=== PATIENT | female | born 1955 | race Caucasian/White ===

== ENCOUNTER 2018-03-31 07:00 | Emergency (ER) | payer BC, MEDICARE ==
[2018-03-31] MEDS ORDERED: Sodium Chloride 0.9% 10 ML Syringe FLUSH PRN (07:02)
[2018-03-31] MEDS ORDERED: Nitroglycerin 0.4 MG Tab.SL SL PRN (07:02)
[2018-03-31] MEDS ORDERED: Sodium Chloride 0.9% 2.5 ML Syringe FLUSH PRN (07:02)
--- NOTE | 2018-03-31 07:06 | EDM.PDOC ---
ED HPI GENERAL MEDICAL PROBLEM - General Stated Complaint: CHEST PAIN Time Seen by Provider: 03/31/18 07:00 Source of Information: Reports: Patient History Limitations: Reports: No Limitations - History of Present Illness INITIAL COMMENTS - FREE TEXT/NARRATIVE: History of present illness: []Patient awoke with left arm pain and 6/10 substernal chest pain this morning at 5 AM. Balance was called and she was given 4 baby aspirin that she states decreased her pain to 4/10 in route she was given 1 nitroglycerin that decreased her pain to 2/10. Her pain is described as worsening with movement of her upper extremities not related to breathing. She denies any fevers, chills, nausea, vomiting or recent illness. She does have a chronic smoker's cough that she feels maybe a little worse. Review of systems: As per history of present illness and below otherwise all systems reviewed and negative. Past medical history: As per history of present illness and as reviewed below otherwise noncontributory. Surgical history: As per history of present illness and as reviewed below otherwise noncontributory. Social history: No reported history of drug or alcohol abuse. Family history: As per history of present illness and as reviewed below otherwise noncontributory. Physical exam: General: Well developed, well nourished in NAD HEENT: Atraumatic, normocephalic, pupils reactive, negative for conjunctival pallor or scleral icterus, mucous membranes moist, throat clear, neck supple, nontender, trachea midline. Lungs: Clear to auscultation, breath sounds equal bilaterally, chest nontender. Heart: S1S2, regular, negative for clicks, rubs, or JVD. Abdomen: NABS, Soft, nondistended, nontender. Negative for masses or hepatosplenomegaly. Negative for costovertebral tenderness. Pelvis: Stable nontender. Genitourinary: Deferred. Rectal: Deferred. Extremities: Atraumatic, negative for cords or calf pain. Neurovascular unremarkable. Neuro: Awake, alert, oriented. Cranial nerves II through XII unremarkable. Cerebellum unremarkable. Motor and sensory unremarkable throughout. Exam nonfocal. Skin:warm and dry Diagnostics: EKG, CBC, chemistry, d-dimer, troponin 2 chest x-ray, angiogram of chest Therapeutics: Toradol, IV fluid ED Course: Improved Impression: Chest pain, left shoulder pain with movement Prescriptions: None, patient is starting prednisone today prescribed for arthritis by [facility] care doctor. Plan: Follow-up primary care, start prednisone as directed return if symptoms worsen or change. Definitive disposition and diagnosis as appropriate pending reevaluation and review of above. Left Shoulder Pain Score (Numeric/FACES): 0 - Related Data Allergies Allergy/AdvReac Type Severity Reaction Status Date / Time Sulfa (Sulfonamide Allergy paresthesia Verified 03/31/18 07:35 Antibiotics) Home Meds: Home Meds ClonazePAM [KlonoPIN] 1 tab PO BEDTIME PRN 09/10/15 [History] Omeprazole 40 mg PO BID 09/10/15 [History] Propranolol HCl [Inderal LA] 160 mg PO DAILY 09/10/15 [History] Triamterene/Hydrochlorothiazid [Triamterene-HCTZ 37.5-25 MG] 1 tab PO DAILY [History] Tiotropium Br/Olodaterol HCl [Stiolto Respimat Inhal [place]] 1 puff INH DAILY [History] Past Medical History HEENT History: Reports: Allergic Rhinitis Cardiovascular History: Reports: Hypertension Other Cardiovascular History: hx of irreg ht rate treated with inderal Respiratory History: Reports: None Gastrointestinal History: Reports: GERD [employer] History: Reports: Musculoskeletal History: Reports: Other (See Below) Other Musculoskeletal History: cervical dystonia Other Neuro History: gets botox for torticollis every 3 months, also s/p surgical denervation of cervical musculature for torticollis. tremors x 25 years, idiopathic, Psychiatric History: Reports: Anxiety Endocrine/Metabolic History: Reports: None Hematologic History: Reports: None Immunologic History: Reports: None Oncologic (Cancer) History: Reports: None Dermatologic History: Reports: None - Past Surgical History Female Surgical History: Reports: Section, Dilitation & Evacuation ED ROS GENERAL - Review of Systems Review Of Systems: ROS reveals no pertinent complaints other than HPI. ED EXAM, GENERAL - Physical Exam Exam: See Below (See history of present illness) Course - Vital Signs Last Recorded V/S: Last Vital Signs Temp 97.8 F 03/31/18 07:00 Pulse 93 03/31/18 10:26 Resp 20 03/31/18 10:26 BP 125/77 03/31/18 10:26 Pulse Ox 96 03/31/18 10:26 - Orders/Labs/Meds Orders: Active Orders 24 hr Category Date Time Status Cardiac Monitoring [RC] . DIRECTED Care 03/31/18 07:01 Active EKG Documentation Completion [RC] STAT Care 03/31/18 07:01 Active CULTURE BLOOD [BC] Stat Lab 03/31/18 07:47 Received CULTURE BLOOD [BC] Stat Lab 03/31/18 07:55 Received Nitroglycerin [Nitrostat] Med 03/31/18 07:02 Active 0.4 mg SL Q5M PRN Sodium Chloride 0.9% [Saline Flush] Med 03/31/18 07:02 Active 10 ml FLUSH ASDIRECTED PRN Sodium Chloride 0.9% [Saline Flush] Med 03/31/18 07:02 Active 2.5 ml FLUSH ASDIRECTED PRN Blood Culture x2 Reflex Set [OM.PC] Stat Oth 03/31/18 07:31 Ordered Saline Lock Insert [OM.PC] Stat Oth 03/31/18 07:01 Ordered Medication Orders Nitroglycerin (Nitrostat) 0.4 mg SL Q5M PRN PRN Reason: Chest Pain Last Admin: 03/31/18 07:33 Dose: 0.4 mg Sodium Chloride (Saline Flush) 10 ml FLUSH ASDIRECTED PRN PRN Reason: Keep Vein Open Last Admin: 03/31/18 09:26 Dose: 10 ml Sodium Chloride (Saline Flush) 2.5 ml FLUSH ASDIRECTED PRN PRN Reason: Keep Vein Open Last Admin: 03/31/18 09:26 Dose: 2.5 ml Labs: Laboratory Tests 03/31/18 03/31/18 03/31/18 Range/Units 07:15 07:15 07:15 WBC 16.21 H (4.0-11.0) K/uL RBC 4.16 L (4.30-5.90) M/uL Hgb 13.2 (12.0-16.0) g/dL Hct 37.4 (36.0-46.0) % MCV 89.9 (80.0-98.0) fL MCH 31.7 (27.0-32.0) pg MCHC 35.3 (31.0-37.0) g/dL RDW Std Deviation 39.5 (28.0-62.0) fl RDW Coeff of Lisa 12 (11.0-15.0) % Plt Count 285 (150-400) K/uL MPV 9.40 (7.40-12.00) fL Neut % (Auto) 76.4 (48.0-80.0) % Lymph % (Auto) 13.3 L (16.0-40.0) % [place] % (Auto) 7.3 (0.0-15.0) % Eos % (Auto) 2.7 (0.0-7.0) % Baso % (Auto) 0.3 (0.0-1.5) % Neut # (Auto) 12.4 H (1.4-5.7) K/uL Lymph # (Auto) 2.2 (0.6-2.4) K/uL [place] # (Auto) 1.2 H (0.0-0.8) K/uL Eos # (Auto) 0.4 (0.0-0.7) K/uL Baso # (Auto) 0.1 (0.0-0.1) K/uL Nucleated RBC % 0.0 /100WBC Nucleated RBCs # 0 K/uL D-Dimer, Quantitative 1.69 H (0.0-0.50) mg/L FEU Lactate (0.20-2.00) mmol/L Sodium 129 L (136-145) mmol/L Potassium 3.6 (3.5-5.1) mmol/L Chloride 93 L (98-107) mmol/L Carbon Dioxide 26.4 (21.0-32.0) mmol/L BUN 20 H (7.0-18.0) mg/dL Creatinine 0.9 (0.6-1.0) mg/dL Est Cr Clr Drug Dosing 53.61 mL/min Estimated GFR (MDRD) > 60.0 ml/min Glucose 106 (74-106) mg/dL Calcium 9.1 (8.5-10.1) mg/dL Total Bilirubin 0.5 (0.2-1.0) mg/dL AST 17 (15-37) IU/L ALT 11 L (14-63) IU/L Alkaline Phosphatase 81 (46-116) U/L Troponin I < 0.050 (0.000-0.056) ng/mL Total Protein 6.9 (6.4-8.2) g/dL Albumin 3.2 L (3.4-5.0) g/dL Globulin 3.7 (2.6-4.0) g/dL Albumin/Globulin Ratio 0.9 (0.9-1.6) Urine Color Urine Appearance Urine pH (5.0-8.0) Ur Specific [place] (1.001-1.035) Urine Protein (NEGATIVE) mg/dL Urine Glucose (UA) (NEGATIVE) mg/dL Urine Ketones (NEGATIVE) mg/dL Urine Occult Blood (NEGATIVE) Urine Nitrite (NEGATIVE) Urine Bilirubin (NEGATIVE) Urine Urobilinogen (<2.0) EU/dL Ur Leukocyte Esterase (NEGATIVE) Urine RBC (0-2/HPF) Urine WBC (0-5/HPF) Ur Epithelial Cells (NONE-FEW) Urine Bacteria (NEGATIVE) Urine Mucus (NONE-MOD) 03/31/18 03/31/18 03/31/18 Range/Units 07:29 07:44 10:11 WBC (4.0-11.0) K/uL RBC (4.30-5.90) M/uL Hgb (12.0-16.0) g/dL Hct (36.0-46.0) % MCV (80.0-98.0) fL MCH (27.0-32.0) pg MCHC (31.0-37.0) g/dL RDW Std Deviation (28.0-62.0) fl RDW Coeff of Lisa (11.0-15.0) % Plt Count (150-400) K/uL MPV (7.40-12.00) fL Neut % (Auto) (48.0-80.0) % Lymph % (Auto) (16.0-40.0) % [place] % (Auto) (0.0-15.0) % Eos % (Auto) (0.0-7.0) % Baso % (Auto) (0.0-1.5) % Neut # (Auto) (1.4-5.7) K/uL Lymph # (Auto) (0.6-2.4) K/uL [place] # (Auto) (0.0-0.8) K/uL Eos # (Auto) (0.0-0.7) K/uL Baso # (Auto) (0.0-0.1) K/uL Nucleated RBC % /100WBC Nucleated RBCs # K/uL D-Dimer, Quantitative (0.0-0.50) mg/L FEU Lactate 0.6 (0.20-2.00) mmol/L Sodium (136-145) mmol/L Potassium (3.5-5.1) mmol/L Chloride (98-107) mmol/L Carbon Dioxide (21.0-32.0) mmol/L BUN (7.0-18.0) mg/dL Creatinine (0.6-1.0) mg/dL Est Cr Clr Drug Dosing mL/min Estimated GFR (MDRD) ml/min Glucose (74-106) mg/dL Calcium (8.5-10.1) mg/dL Total Bilirubin (0.2-1.0) mg/dL AST (15-37) IU/L ALT (14-63) IU/L Alkaline Phosphatase (46-116) U/L Troponin I < 0.050 (0.000-0.056) ng/mL Total Protein (6.4-8.2) g/dL Albumin (3.4-5.0) g/dL Globulin (2.6-4.0) g/dL Albumin/Globulin Ratio (0.9-1.6) Urine Color YELLOW Urine Appearance CLEAR Urine pH 5.5 (5.0-8.0) Ur Specific [place] 1.010 (1.001-1.035) Urine Protein NEGATIVE (NEGATIVE) mg/dL Urine Glucose (UA) NEGATIVE (NEGATIVE) mg/dL Urine Ketones NEGATIVE (NEGATIVE) mg/dL Urine Occult Blood NEGATIVE (NEGATIVE) Urine Nitrite NEGATIVE (NEGATIVE) Urine Bilirubin NEGATIVE (NEGATIVE) Urine Urobilinogen 0.2 (<2.0) EU/dL Ur Leukocyte Esterase TRACE H (NEGATIVE) Urine RBC NONE SEEN (0-2/HPF) Urine WBC 0-2 (0-5/HPF) Ur Epithelial Cells FEW (NONE-FEW) Urine Bacteria FEW (NEGATIVE) Urine Mucus LIGHT (NONE-MOD) Meds: Medications Generic Name Dose Route Start Last Admin Trade Name Freq PRN Reason Stop Dose Admin Nitroglycerin 0.4 mg 03/31/18 07:02 03/31/18 07:33 Nitrostat SL 0.4 mg Q5M PRN Administration Chest Pain Sodium Chloride 10 ml 03/31/18 07:02 03/31/18 09:26 Saline Flush FLUSH 10 ml ASDIRECTED PRN Administration Keep Vein Open Sodium Chloride 2.5 ml 03/31/18 07:02 03/31/18 09:26 Saline Flush FLUSH 2.5 ml ASDIRECTED PRN Administration Keep Vein Open Discontinued Medications Generic Name Dose Route Start Last Admin Trade Name Freq PRN Reason Stop Dose Admin Iopamidol 50 ml 03/31/18 12:01 03/31/18 12:02 Isovue Multipack-370 (76%) IVPUSH 03/31/18 12:02 50 ml ONETIME ONE Administration Ketorolac Tromethamine 15 mg 03/31/18 10:03 03/31/18 10:33 Toradol IVPUSH 03/31/18 10:04 15 mg ONETIME ONE Administration Lorazepam 0.5 mg 03/31/18 10:36 03/31/18 10:43 Ativan IVPUSH 03/31/18 10:37 Not Given ONETIME ONE Lorazepam 0.25 mg 03/31/18 10:36 03/31/18 10:43 Ativan IVPUSH 03/31/18 10:37 0.25 mg ONETIME ONE Administration Departure - Departure Time of Disposition: 12:14 Disposition: Home, Self-Care 01 Condition: Good Clinical Impression: Left shoulder pain Qualifiers: Chronicity: acute Qualified Code(s): M25.512 - Pain in left shoulder Chest pain Qualifiers: Chest pain type: unspecified Qualified Code(s): R07.9 - Chest pain, unspecified Instructions: Shoulder Pain, [id number], Nonspecific Chest Pain, [id number] Referrals: Joe Osborne MD [Primary Care Provider] - Forms: ED Department Discharge Additional Instructions: The following information is given to patients seen in the emergency department who are being discharged to home. This information is to outline your options for follow-up care. We provide all patients seen in our emergency department with a follow-up referral. The need for follow-up, as well as the timing and circumstances, are variable depending upon the specifics of your emergency department visit. If you don't have a primary care physician on staff, we will provide you with a referral. We always advise you to contact your personal physician following an emergency department visit to inform them of the circumstance of the visit and for follow-up with them and/or the need for any referrals to a consulting specialist. The emergency department will also refer you to a specialist when appropriate. This referral assures that you have the opportunity for follow-up care with a specialist. All of these measure are taken in an effort to provide you with optimal care, which includes your follow-up. Under all circumstances we always encourage you to contact your private physician who remains a resource for coordinating your care. When calling for follow-up care, please make the office aware that this follow-up is from your recent emergency room visit. If for any reason you are refused follow-up, please contact the [facility] Emergency [facility] at and asked to speak to the emergency department charge nurse. [facility] [address] [place] [phone] - My Orders Last 24 Hours: My Active Orders 03/31/18 07:01 Cardiac Monitoring [RC] . DIRECTED EKG Documentation Completion [RC] STAT Saline Lock Insert [OM.PC] Stat 03/31/18 07:02 Nitroglycerin [Nitrostat] 0.4 mg SL Q5M PRN Sodium Chloride 0.9% [Saline Flush] 10 ml FLUSH ASDIRECTED PRN Sodium Chloride 0.9% [Saline Flush] 2.5 ml FLUSH ASDIRECTED PRN 03/31/18 07:31 Blood Culture x2 Reflex Set [OM.PC] Stat 03/31/18 07:47 CULTURE BLOOD [BC] Stat 03/31/18 07:55 CULTURE BLOOD [BC] Stat - Assessment/Plan Last 24 Hours: My Active Orders 03/31/18 07:01 Cardiac Monitoring [RC] . DIRECTED EKG Documentation Completion [RC] STAT Saline Lock Insert [OM.PC] Stat 03/31/18 07:02 Nitroglycerin [Nitrostat] 0.4 mg SL Q5M PRN Sodium Chloride 0.9% [Saline Flush] 10 ml FLUSH ASDIRECTED PRN Sodium Chloride 0.9% [Saline Flush] 2.5 ml FLUSH ASDIRECTED PRN 03/31/18 07:31 Blood Culture x2 Reflex Set [OM.PC] Stat 03/31/18 07:47 CULTURE BLOOD [BC] Stat 03/31/18 07:55 CULTURE BLOOD [BC] Stat
[2018-03-31 07:58] LABS: CHLORIDE,CL 93 mmol/L (98-107); SODIUM,NA 129 mmol/L (136-145)
--- NOTE | 2018-03-31 09:25 | CR ---
INDICATION : Pain and SOB. TECHNIQUE : Upright portable AP image of the chest. COMPARISON : None. FINDINGS : Patient rotated. No infiltrate or pleural effusion. Heart size and pulmonary vasculature within normal limits. No significant bony abnormality. IMPRESSION : Patient rotated. No active disease evident. Dictated by Ivan Argueta MD @ Mar 31 2018 9:20AM Signed by Dr. Ivan Argueta @ Mar 31 2018 9:23AM
[2018-03-31] MEDS ORDERED: Ketorolac 30 MG/ML SDV IVPUSH ONE (10:03)
[2018-03-31] MEDS ORDERED: LORazepam 2 MG/ML SDV IVPUSH ONE ×2 (10:36)
[2018-03-31] MEDS ORDERED: Iopamidol 755 MG/ML 500 ML Multipack Bottle IVPUSH ONE (12:01)
--- NOTE | 2018-03-31 12:09 | CT ---
EXAMINATION: CTA chest HISTORY: Pain COMPARISON: None TECHNIQUE: Axial CT imaging obtained through the chest following the administration of 50 mL of Isovue-370 in the left antecubital fossa. Coronal and sagittal reconstructions obtained. FINDINGS: The lungs are clear without focal consolidation. No pleural effusion or pneumothorax. Mild dependent atelectasis. There are a few small sub-4 mm pulmonary nodules noted bilaterally. The thoracic aorta is mildly ectatic measuring up to 4.3 cm within the ascending aorta and 3.5 cm within the descending aorta. The main and central pulmonary arteries are patent. Mild left atrial prominence. Coronary artery calcifications are noted. Central airways are clear. No mediastinal, hilar, or axillary lymphadenopathy. There is likely a left adrenal adenoma. No suspicious osseous abnormalities identified. IMPRESSION: 1. No acute cardiopulmonary findings. 2. There are several small pulmonary nodules noted bilaterally, left the patient has known risk factors consider follow-up imaging in 12 months. 3. Mild ectasia of the thoracic aorta.
[2018-03-31 12:21] VITALS: BP 141/72
== END 2018-03-31 12:23 | disposition home or self-care (01) ==
LOC: MW.ED 07:00
DX: M25.512 Pain in left shoulder (principal); R07.2 Precordial pain; K21.9 Gastro-esophageal reflux disease without esophagitis; I10 Essential (primary) hypertension; Z88.2 Allergy status to sulfonamides; Z79.899 Other long term (current) drug therapy
CPT/HCPCS: 36415; 71045; 71275; 80053; 81001; 83605; 84484; 85025; 85379; 87040; 87804; 93005; 96374; 96375; 99285; A9270; J1885; J2060; Q9967; 99284

== ENCOUNTER 2018-05-07 11:36 | Inpatient (IN) | payer BC, MEDICARE ==
[2018-05-07] MEDS ORDERED: Adenosine 6 MG/2 ML SDV ONE (11:42)
--- NOTE | 2018-05-07 11:47 | EDM.PDOC ---
ED HPI GENERAL MEDICAL PROBLEM - General Chief Complaint: Cardiovascular Problem Stated Complaint: SOB Time Seen by Provider: 05/07/18 11:45 - History of Present Illness INITIAL COMMENTS - FREE TEXT/NARRATIVE: HISTORY AND PHYSICAL: History of present illness: Patient 62-year-old white female history of spasmodic torticollis and rheumatoid arthritis that presents with concern shortness of breath and rapid heart rate over last 4 days she is sent here from clinic. She denies chest pain nausea vomiting fever chills Review of systems: As per history of present illness and below otherwise all systems reviewed and negative. Past medical history: As per history of present illness and as reviewed below otherwise noncontributory. Surgical history: As per history of present illness and as reviewed below otherwise noncontributory. Social history: No reported history of drug or alcohol abuse. Family history: As per history of present illness and as reviewed below otherwise noncontributory. Physical exam: HEENT: Atraumatic, normocephalic, pupils reactive, negative for conjunctival pallor or scleral icterus, mucous membranes moist, throat clear, neck supple, nontender, trachea midline. Lungs: Clear to auscultation, breath sounds equal bilaterally, chest nontender. Heart: S1S2, irregularly irregular and tachycardic negative for clicks, rubs, or JVD. Abdomen: Soft, nondistended, nontender. Negative for masses or hepatosplenomegaly. Negative for costovertebral tenderness. Pelvis: Stable nontender. Genitourinary: Deferred. Rectal: Deferred. Extremities: Atraumatic, negative for cords or calf pain. Neurovascular unremarkable. Neuro: Awake, alert, oriented. Cranial nerves II through XII unremarkable. Cerebellum unremarkable. Motor and sensory unremarkable throughout. Exam nonfocal. Diagnostics: CBC CMP troponin PT/INR BNP chest x-ray EKG Therapeutics: IV O2 monitor Cardizem 25 mg IV Lovenox 1 mg/kg subcutaneous Impression: #1 new onset atrial fibrillation with rapid ventricular response Definitive disposition and diagnosis as appropriate pending reevaluation and review of above. - Related Data Allergies Allergy/AdvReac Type Severity Reaction Status Date / Time Sulfa (Sulfonamide Allergy paresthesia Verified 05/07/18 11:48 Antibiotics) Home Meds: Home Meds ClonazePAM [KlonoPIN] 1 tab PO BEDTIME PRN 09/10/15 [History] Omeprazole 40 mg PO BID 09/10/15 [History] Propranolol HCl [Inderal LA] 160 mg PO DAILY 09/10/15 [History] Triamterene/Hydrochlorothiazid [Triamterene-HCTZ 37.5-25 MG] 1 tab PO DAILY [History] Tiotropium Br/Olodaterol HCl [Stiolto Respimat Inhal [place]] 1 puff INH DAILY [History] Past Medical History HEENT History: Reports: Allergic Rhinitis Cardiovascular History: Reports: Hypertension Other Cardiovascular History: hx of irreg ht rate treated with inderal Respiratory History: Reports: None Gastrointestinal History: Reports: GERD [employer] History: Reports: Musculoskeletal History: Reports: Other (See Below) Other Musculoskeletal History: cervical dystonia Other Neuro History: gets botox for torticollis every 3 months, also s/p surgical denervation of cervical musculature for torticollis. tremors x 25 years, idiopathic, Psychiatric History: Reports: Anxiety Endocrine/Metabolic History: Reports: None Hematologic History: Reports: None Immunologic History: Reports: None Oncologic (Cancer) History: Reports: None Dermatologic History: Reports: None - Past Surgical History Female Surgical History: Reports: Section, Dilitation & Evacuation ED ROS GENERAL - Review of Systems Review Of Systems: ROS reveals no pertinent complaints other than HPI. ED EXAM, GENERAL - Physical Exam Exam: See Below (See dictation) Course - Vital Signs Last Recorded V/S: Last Vital Signs Temp 36.4 C 05/07/18 11:43 Pulse 157 H 05/07/18 11:43 Resp 20 05/07/18 11:43 BP 141/98 H 05/07/18 11:43 Pulse Ox 98 05/07/18 11:43 - Orders/Labs/Meds Orders: Active Orders 24 hr Category Date Time Status Cardiac Monitoring [RC] . DIRECTED Care 05/07/18 11:49 Active EKG Documentation Completion [RC] STAT Care 05/07/18 11:49 Active Oxygen Therapy [RC] ASDIRECTED Care 05/07/18 11:49 Active Pulse Oximetry [RC] ASDIRECTED Care 05/07/18 11:49 Active B-TYPE NATRIURETIC PEPTIDE,BNP [CHEM] Stat Lab 05/07/18 11:51 Received Labs: Laboratory Tests 03/22/19 03/22/19 Range/Units 11:51 11:51 WBC 12.73 H (4.0-11.0) K/uL RBC 4.25 L (4.30-5.90) M/uL Hgb 13.8 (12.0-16.0) g/dL Hct 40.2 (36.0-46.0) % MCV 94.6 (80.0-98.0) fL MCH 32.5 H (27.0-32.0) pg MCHC 34.3 (31.0-37.0) g/dL RDW Std Deviation 51.4 (28.0-62.0) fl RDW Coeff of Lisa 15 (11.0-15.0) % Plt Count 229 (150-400) K/uL MPV 10.10 (7.40-12.00) fL Neut % (Auto) 60.9 (48.0-80.0) % Lymph % (Auto) 30.6 (16.0-40.0) % [place] % (Auto) 7.0 (0.0-15.0) % Eos % (Auto) 1.1 (0.0-7.0) % Baso % (Auto) 0.4 (0.0-1.5) % Neut # (Auto) 7.8 H (1.4-5.7) K/uL Lymph # (Auto) 3.9 H (0.6-2.4) K/uL [place] # (Auto) 0.9 H (0.0-0.8) K/uL Eos # (Auto) 0.1 (0.0-0.7) K/uL Baso # (Auto) 0.1 (0.0-0.1) K/uL Nucleated RBC % 0.0 /100WBC Nucleated RBCs # 0 K/uL Sodium 134 L (136-145) mmol/L Potassium 3.4 L (3.5-5.1) mmol/L Chloride 98 (98-107) mmol/L Carbon Dioxide 27.9 (21.0-32.0) mmol/L BUN 22 H (7.0-18.0) mg/dL Creatinine 1.3 H (0.6-1.0) mg/dL Est Cr Clr Drug Dosing 37.12 mL/min Estimated GFR (MDRD) 41.5 ml/min Glucose 123 H (74-106) mg/dL Calcium 8.8 (8.5-10.1) mg/dL Total Bilirubin 0.7 (0.2-1.0) mg/dL AST 26 (15-37) IU/L ALT 62 (14-63) IU/L Alkaline Phosphatase 59 (46-116) U/L Troponin I < 0.050 (0.000-0.056) ng/mL Total Protein 6.5 (6.4-8.2) g/dL Albumin 3.5 (3.4-5.0) g/dL Globulin 3.0 (2.6-4.0) g/dL Albumin/Globulin Ratio 1.2 (0.9-1.6) Meds: Medications Discontinued Medications Generic Name Dose Route Start Last Admin Trade Name Freq PRN Reason Stop Dose Admin Adenosine Confirm 05/07/18 11:42 05/07/18 11:56 Adenocard Administered 05/07/18 11:43 Not Given Dose 6 mg .ROUTE .STK-MED ONE Diltiazem HCl 25 mg 05/07/18 11:51 05/07/18 12:03 Diltiazem IVPUSH 05/07/18 11:52 25 mg ONETIME ONE Administration Enoxaparin Sodium 60 mg 05/07/18 11:51 05/07/18 12:07 Lovenox SUBCUT 05/07/18 11:52 60 mg ONETIME ONE Administration Departure - Departure Time of Disposition: 13:12 Disposition: Admitted As Inpatient 66 Condition: Good Clinical Impression: Atrial fibrillation with rapid ventricular response, Dyspnea Referrals: PCP,None [Primary Care Provider] - Forms: ED Department Discharge - My Orders Last 24 Hours: My Active Orders 05/07/18 11:49 Cardiac Monitoring [RC] . DIRECTED EKG Documentation Completion [RC] STAT Oxygen Therapy [RC] ASDIRECTED Pulse Oximetry [RC] ASDIRECTED 05/07/18 11:51 B-TYPE NATRIURETIC PEPTIDE,BNP [CHEM] Stat - Assessment/Plan Last 24 Hours: My Active Orders 05/07/18 11:49 Cardiac Monitoring [RC] . DIRECTED EKG Documentation Completion [RC] STAT Oxygen Therapy [RC] ASDIRECTED Pulse Oximetry [RC] ASDIRECTED 05/07/18 11:51 B-TYPE NATRIURETIC PEPTIDE,BNP [CHEM] Stat
[2018-05-07] MEDS ORDERED: Enoxaparin 60 MG/0.6 ML Syringe SUBCUT ONE (11:51)
[2018-05-07] MEDS ORDERED: Diltiazem 25 MG/5 ML SDV IVPUSH ONE (11:51)
[2018-05-07 12:50] LABS: CHLORIDE,CL 98 mmol/L (98-107); SODIUM,NA 134 mmol/L (136-145)
--- NOTE | 2018-05-07 13:09 | CR ---
EXAMINATION: Portable chest radiograph. HISTORY: Elevated heart rate. Comparison: CT 03/31/2018. FINDINGS: The trachea is essentially midline. The cardiomediastinal silhouette is within normal limits. No pulmonary infiltrates, effusions or pneumothorax. The aorta is ectatic and tortuous. Levocurvature thoracic spine. IMPRESSION: No acute cardiopulmonary process.
[2018-05-07] MEDS ORDERED: LORazepam 2 MG/ML SDV IVPUSH ONE (13:32)
--- NOTE | 2018-05-07 14:13 | PCM.HP ---
<Ariela Wylie M - Last Filed: 05/07/18 14:56> H&P History of Present Illness - General Date of Service: 05/07/18 Admit Problem/Dx: Admission Diagnosis/Problem Admission Diagnosis/Problem Atrial fibrillation with rapid ventricular response Source of Information: Patient History Limitations: Reports: No Limitations - History of Present Illness Initial Comments - Free Text/Narative: This 62 year old female with pmh of spastic torticollis, HTN, and idiopathic tremors presented initially to her PCP today for more prednisone due ot RA pain. She is scheduled to meet with [employer] in 2 weeks. She was noted to have elevated HR in the office and sent to the ED. EKG revealed afib with rates in the 140-150s. She reports 4-5 days of shortness of breath with exertion which is new and a dry cough. She denies fevers chills or productive cough. No abdominal pain or urinary symptoms. She has been on Prednisone taper for 2 months. She denies palpitations or chest pain. No focal neurologic deficits. She reports she once was on Atenolol for "irregular heart rhythm", not sure what and then was changed to propranolol because they thought it would help with her tremors, which she said it did not. She is a smoker, 1 ppd, she has considered quitting, but not very motivated at this time. Rare alcohol use and no recreational drug use. In the ED mild leukocytosis noted, 12,730. Na 134, K+ 3.3 BUN 22, Cr 1.3, glucose 123, BNP 495. CXR negative. EKG reveals Afib with RVR, rates 150s. She was given Diltiazem IV and therapeutic Lovenox subcutaneously. She will be admitted inpatient for afib RVR. PCP, Dr Paredes. - Related Data Allergies/Adverse Reactions: Allergies Allergy/AdvReac Type Severity Reaction Status Date / Time Sulfa (Sulfonamide Allergy paresthesia Verified 05/07/18 11:48 Antibiotics) Home Medications: Home Meds ClonazePAM [KlonoPIN] 1 tab PO BEDTIME PRN 09/10/15 [History] Omeprazole 40 mg PO DAILY 09/10/15 [History] Propranolol HCl [Inderal LA] 160 mg PO DAILY 09/10/15 [History] Triamterene/Hydrochlorothiazid [Triamterene-HCTZ 37.5-25 MG] 1 tab PO DAILY [History] Tiotropium Br/Olodaterol HCl [Stiolto Respimat Inhal [place]] 1 puff INH DAILY [History] Past Medical History HEENT History: Reports: Allergic Rhinitis Cardiovascular History: Reports: Arrhythmia, Hypertension. Denies: CAD, High Cholesterol Respiratory History: Reports: None. Denies: Asthma, COPD Gastrointestinal History: Reports: GERD [employer]OR History: Reports: Musculoskeletal History: Reports: Other (See Below) Other Musculoskeletal History: cervical dystonia Other Neuro History: gets botox for torticollis every 3 months, also s/p surgical denervation of cervical musculature for torticollis,. idiopathic tremors x 25 years Psychiatric History: Reports: Anxiety Endocrine/Metabolic History: Reports: None. Denies: Diabetes, Type II, Obesity/ BMI 30+ Hematologic History: Reports: None Immunologic History: Reports: None Oncologic (Cancer) History: Reports: None Dermatologic History: Reports: None - Past Surgical History Female Surgical History: Reports: Section, Dilitation & Evacuation Social & Family History - Tobacco Use Smoking Status *Q: Current Every Day Smoker Packs/Tins Daily: 1 - Alcohol Use Alcohol Use History: No Alcohol Use Frequency: Rarely - Recreational Drug Use Recreational Drug Use: No H&P Review of Systems - Review of Systems: Review Of Systems: See Below General: Reports: No Symptoms. Denies: Fever, Chills, Malaise, Weakness HEENT: Reports: No Symptoms. Denies: Headaches, Sinus Congestion, Vertigo Pulmonary: Reports: Shortness of Breath, Cough (dry hacking) Cardiovascular: Reports: Dyspnea on Exertion. Denies: Chest Pain, Edema, Lightheadedness Gastrointestinal: Reports: No Symptoms. Denies: Abdominal Pain, Black Stool, Bloody Stool, Nausea, Vomiting Genitourinary: Reports: No Symptoms. Denies: Dysuria, Frequency, Burning Musculoskeletal: Reports: No Symptoms. Denies: Neck Pain Neurological: Reports: Tremors (idopathic at baseline to neck) Hematologic/Lymphatic: Reports: No Symptoms Immunologic: Reports: No Symptoms Exam - Exam Exam: See Below - Vital Signs Vital Signs: Last Vital Signs Temp 97.6 F 05/07/18 11:43 Pulse 157 H 05/07/18 11:43 Resp 20 05/07/18 11:43 BP 141/98 H 05/07/18 11:43 Pulse Ox 98 05/07/18 11:43 Weight: 61.235 kg - Exam General: Alert, Oriented, Cooperative - Patient Data Lab Results Last 24 hrs: Laboratory Results - last 24 hr 05/07/18 05/07/18 05/07/18 Range/Units 11:51 11:51 11:51 WBC 12.73 H (4.0-11.0) K/uL RBC 4.25 L (4.30-5.90) M/uL Hgb 13.8 (12.0-16.0) g/dL Hct 40.2 (36.0-46.0) % MCV 94.6 (80.0-98.0) fL MCH 32.5 H (27.0-32.0) pg MCHC 34.3 (31.0-37.0) g/dL RDW Std Deviation 51.4 (28.0-62.0) fl RDW Coeff of Lisa 15 (11.0-15.0) % Plt Count 229 (150-400) K/uL MPV 10.10 (7.40-12.00) fL Neut % (Auto) 60.9 (48.0-80.0) % Lymph % (Auto) 30.6 (16.0-40.0) % Routt % (Auto) 7.0 (0.0-15.0) % Eos % (Auto) 1.1 (0.0-7.0) % Baso % (Auto) 0.4 (0.0-1.5) % Neut # (Auto) 7.8 H (1.4-5.7) K/uL Lymph # (Auto) 3.9 H (0.6-2.4) K/uL Routt # (Auto) 0.9 H (0.0-0.8) K/uL Eos # (Auto) 0.1 (0.0-0.7) K/uL Baso # (Auto) 0.1 (0.0-0.1) K/uL Nucleated RBC % 0.0 /100WBC Nucleated RBCs # 0 K/uL Sodium 134 L (136-145) mmol/L Potassium 3.4 L (3.5-5.1) mmol/L Chloride 98 (98-107) mmol/L Carbon Dioxide 27.9 (21.0-32.0) mmol/L BUN 22 H (7.0-18.0) mg/dL Creatinine 1.3 H (0.6-1.0) mg/dL Est Cr Clr Drug Dosing 37.12 mL/min Estimated GFR (MDRD) 41.5 ml/min Glucose 123 H (74-106) mg/dL Calcium 8.8 (8.5-10.1) mg/dL Magnesium (1.8-2.4) mg/dL Total Bilirubin 0.7 (0.2-1.0) mg/dL AST 26 (15-37) IU/L ALT 62 (14-63) IU/L Alkaline Phosphatase 59 (46-116) U/L Troponin I < 0.050 (0.000-0.056) ng/mL B-Natriuretic Peptide 495 H (<100) PG/ML Total Protein 6.5 (6.4-8.2) g/dL Albumin 3.5 (3.4-5.0) g/dL Globulin 3.0 (2.6-4.0) g/dL Albumin/Globulin Ratio 1.2 (0.9-1.6) 05/07/18 Range/Units 11:51 WBC (4.0-11.0) K/uL RBC (4.30-5.90) M/uL Hgb (12.0-16.0) g/dL Hct (36.0-46.0) % MCV (80.0-98.0) fL MCH (27.0-32.0) pg MCHC (31.0-37.0) g/dL RDW Std Deviation (28.0-62.0) fl RDW Coeff of Lisa (11.0-15.0) % Plt Count (150-400) K/uL MPV (7.40-12.00) fL Neut % (Auto) (48.0-80.0) % Lymph % (Auto) (16.0-40.0) % Routt % (Auto) (0.0-15.0) % Eos % (Auto) (0.0-7.0) % Baso % (Auto) (0.0-1.5) % Neut # (Auto) (1.4-5.7) K/uL Lymph # (Auto) (0.6-2.4) K/uL Routt # (Auto) (0.0-0.8) K/uL Eos # (Auto) (0.0-0.7) K/uL Baso # (Auto) (0.0-0.1) K/uL Nucleated RBC % /100WBC Nucleated RBCs # K/uL Sodium (136-145) mmol/L Potassium (3.5-5.1) mmol/L Chloride (98-107) mmol/L Carbon Dioxide (21.0-32.0) mmol/L BUN (7.0-18.0) mg/dL Creatinine (0.6-1.0) mg/dL Est Cr Clr Drug Dosing mL/min Estimated GFR (MDRD) ml/min Glucose (74-106) mg/dL Calcium (8.5-10.1) mg/dL Magnesium 2.0 (1.8-2.4) mg/dL Total Bilirubin (0.2-1.0) mg/dL AST (15-37) IU/L ALT (14-63) IU/L Alkaline Phosphatase (46-116) U/L Troponin I (0.000-0.056) ng/mL B-Natriuretic Peptide (<100) PG/ML Total Protein (6.4-8.2) g/dL Albumin (3.4-5.0) g/dL Globulin (2.6-4.0) g/dL Albumin/Globulin Ratio (0.9-1.6) Result Diagrams: 05/07/18 11:51 05/07/18 11:51 - Problem List (1) Atrial fibrillation with rapid ventricular response SNOMED Code(s): 482312727255803 ICD Code: I48.91 - UNSPECIFIED ATRIAL FIBRILLATION Status: Acute Current Visit: No (2) Spastic torticollis SNOMED Code(s): 97517599, 685136899085 ICD Code: M43.6 - TORTICOLLIS Status: Chronic Current Visit: No (3) Tremor SNOMED Code(s): 52682280 ICD Code: R25.1 - TREMOR, UNSPECIFIED Status: Chronic Current Visit: No (4) HTN (hypertension) SNOMED Code(s): 61493869 ICD Code: I10 - ESSENTIAL (PRIMARY) HYPERTENSION Status: Chronic Current Visit: No (5) Dyspnea SNOMED Code(s): 186313879 ICD Code: R06.00 - DYSPNEA, UNSPECIFIED Status: Acute Current Visit: No Problem List Initiated/Reviewed/Updated: Yes Orders Last 24hrs: Active Orders 24 hr Category Date Time Status Patient Status [ADT] Stat ADT 05/07/18 13:13 Active Cardiac Monitoring [RC] . DIRECTED Care 05/07/18 11:49 Active EKG Documentation Completion [RC] STAT Care 05/07/18 11:49 Active Oxygen Therapy [RC] ASDIRECTED Care 05/07/18 11:49 Active Pulse Oximetry [RC] ASDIRECTED Care 05/07/18 11:49 Active Assessment/Plan Comment:: This 62 year old female admitted with afib with RVR 1. Afib with RVR: RVR resolved. Will start Diltiazem 30 mg PO Q6 hrs, if rate controlled, convert to daily dosing in am. CHADSVASC score 1, will start ASA. Discussed this with patient for stroke prevention, she verbalized understanding. Supplement K+, 40 meq now. Recheck in am. Magnesium good at 2.0. Discontinue Propranolol. 2. HTN: Stable, monitor with Diltiazem administration. Continue home meds 3. Tremors: stable, continue Clonazepam TID PRN 4. RA: Hands swollen and tender, currently on Prednisone 10 mg until follow up with [employer] [facility] on May 28. On PPI, Prilosec BID. VTE prophylaxis: Lovenox. Dispo: 1-2 days pending rate control. <Nicolás Landon - Last Filed: 05/07/18 18:30> H&P History of Present Illness - General Admit Problem/Dx: Admission Diagnosis/Problem Admission Diagnosis/Problem Atrial fibrillation with rapid ventricular response - History of Present Illness Initial Comments - Free Text/Narative: I have seen and examined the patient independently of Ariela Wylie CNP. I have discussed the case with her. I have reviewed and agree with the assessment and plan of care for the patient as outlined by her. Please see orders. Exam - Vital Signs Vital Signs: Last Vital Signs Temp 36.2 C 05/07/18 15:10 Pulse 91 05/07/18 15:10 Resp 16 05/07/18 15:10 BP 130/70 05/07/18 15:10 Pulse Ox 98 05/07/18 15:10 - Patient Data Lab Results Last 24 hrs: Laboratory Results - last 24 hr 05/07/18 05/07/18 05/07/18 Range/Units 11:51 11:51 11:51 WBC 12.73 H (4.0-11.0) K/uL RBC 4.25 L (4.30-5.90) M/uL Hgb 13.8 (12.0-16.0) g/dL Hct 40.2 (36.0-46.0) % MCV 94.6 (80.0-98.0) fL MCH 32.5 H (27.0-32.0) pg MCHC 34.3 (31.0-37.0) g/dL RDW Std Deviation 51.4 (28.0-62.0) fl RDW Coeff of Lisa 15 (11.0-15.0) % Plt Count 229 (150-400) K/uL MPV 10.10 (7.40-12.00) fL Neut % (Auto) 60.9 (48.0-80.0) % Lymph % (Auto) 30.6 (16.0-40.0) % Routt % (Auto) 7.0 (0.0-15.0) % Eos % (Auto) 1.1 (0.0-7.0) % Baso % (Auto) 0.4 (0.0-1.5) % Neut # (Auto) 7.8 H (1.4-5.7) K/uL Lymph # (Auto) 3.9 H (0.6-2.4) K/uL [place]t # (Auto) 0.9 H (0.0-0.8) K/uL Eos # (Auto) 0.1 (0.0-0.7) K/uL Baso # (Auto) 0.1 (0.0-0.1) K/uL Nucleated RBC % 0.0 /100WBC Nucleated RBCs # 0 K/uL Sodium 134 L (136-145) mmol/L Potassium 3.4 L (3.5-5.1) mmol/L Chloride 98 (98-107) mmol/L Carbon Dioxide 27.9 (21.0-32.0) mmol/L BUN 22 H (7.0-18.0) mg/dL Creatinine 1.3 H (0.6-1.0) mg/dL Est Cr Clr Drug Dosing 37.12 mL/min Estimated GFR (MDRD) 41.5 ml/min Glucose 123 H (74-106) mg/dL Calcium 8.8 (8.5-10.1) mg/dL Magnesium (1.8-2.4) mg/dL Total Bilirubin 0.7 (0.2-1.0) mg/dL AST 26 (15-37) IU/L ALT 62 (14-63) IU/L Alkaline Phosphatase 59 (46-116) U/L Troponin I < 0.050 (0.000-0.056) ng/mL B-Natriuretic Peptide 495 H (<100) PG/ML Total Protein 6.5 (6.4-8.2) g/dL Albumin 3.5 (3.4-5.0) g/dL Globulin 3.0 (2.6-4.0) g/dL Albumin/Globulin Ratio 1.2 (0.9-1.6) 05/07/18 Range/Units 11:51 WBC (4.0-11.0) K/uL RBC (4.30-5.90) M/uL Hgb (12.0-16.0) g/dL Hct (36.0-46.0) % MCV (80.0-98.0) fL MCH (27.0-32.0) pg MCHC (31.0-37.0) g/dL RDW Std Deviation (28.0-62.0) fl RDW Coeff of Lisa (11.0-15.0) % Plt Count (150-400) K/uL MPV (7.40-12.00) fL Neut % (Auto) (48.0-80.0) % Lymph % (Auto) (16.0-40.0) % Routt % (Auto) (0.0-15.0) % Eos % (Auto) (0.0-7.0) % Baso % (Auto) (0.0-1.5) % Neut # (Auto) (1.4-5.7) K/uL Lymph # (Auto) (0.6-2.4) K/uL Routt # (Auto) (0.0-0.8) K/uL Eos # (Auto) (0.0-0.7) K/uL Baso # (Auto) (0.0-0.1) K/uL Nucleated RBC % /100WBC Nucleated RBCs # K/uL Sodium (136-145) mmol/L Potassium (3.5-5.1) mmol/L Chloride (98-107) mmol/L Carbon Dioxide (21.0-32.0) mmol/L BUN (7.0-18.0) mg/dL Creatinine (0.6-1.0) mg/dL Est Cr Clr Drug Dosing mL/min Estimated GFR (MDRD) ml/min Glucose (74-106) mg/dL Calcium (8.5-10.1) mg/dL Magnesium 2.0 (1.8-2.4) mg/dL Total Bilirubin (0.2-1.0) mg/dL AST (15-37) IU/L ALT (14-63) IU/L Alkaline Phosphatase (46-116) U/L Troponin I (0.000-0.056) ng/mL B-Natriuretic Peptide (<100) PG/ML Total Protein (6.4-8.2) g/dL Albumin (3.4-5.0) g/dL Globulin (2.6-4.0) g/dL Albumin/Globulin Ratio (0.9-1.6) Result Diagrams: 05/07/18 11:51 05/07/18 11:51 Orders Last 24hrs: Active Orders 24 hr Category Date Time Status Patient Status [ADT] Stat ADT 05/07/18 13:13 Active Cardiac Monitoring [RC] . DIRECTED Care 05/07/18 11:49 Active Communication Order [RC] ROUTINE Care 05/07/18 14:58 Active EKG Documentation Completion [RC] STAT Care 05/07/18 11:49 Active Intake and Output [RC] Q12H Care 05/07/18 14:50 Active Oxygen Therapy [RC] ASDIRECTED Care 05/07/18 11:49 Active Oxygen Therapy [RC] PRN Care 05/07/18 14:50 Active Pulse Oximetry [RC] ASDIRECTED Care 05/07/18 11:49 Active Telemetry Monitoring [Cardiac Monitoring] [RC] . Care 05/07/18 14:49 Active DIRECTED Up With Assistance [RC] ASDIRECTED Care 05/07/18 14:50 Active VTE/DVT Education [RC] PER UNIT ROUTINE Care 05/07/18 14:50 Active Vital Signs [RC] Q4H Care 05/07/18 14:50 Active Heart Healthy Diet [DIET] Diet 05/07/18 Lunch Active BASIC METABOLIC PANEL,BMP [CHEM] AM Lab 05/08/18 05:11 Ordered CBC WITH AUTO DIFF [HEME] AM Lab 05/08/18 05:11 Ordered MAGNESIUM [CHEM] AM Lab 05/08/18 05:11 Ordered Acetaminophen [Tylenol] Med 05/07/18 14:50 Active 650 mg PO Q4H PRN Aspirin [Halfprin] Med 05/07/18 15:15 Active 81 mg PO DAILY Benzonatate [Tessalon Perles] Med 05/07/18 14:50 Active 100 mg PO TID PRN ClonazePAM [KlonoPIN] Med 05/07/18 14:55 Active 0.5 mg PO TID PRN Diltiazem IR [Cardizem] Med 05/07/18 15:00 Active 30 mg PO Q6HR Enoxaparin [Lovenox] Med 05/08/18 15:00 Active 40 mg SUBCUT Q24H HCTZ/Triamterene [Maxzide 25-37.5 MG] Med 05/08/18 09:00 Active 1 each PO DAILY Omeprazole Med 05/07/18 17:00 Active 40 mg PO BIDAC Ondansetron [Zofran] Med 05/07/18 14:50 Active 4 mg IVPUSH Q4H PRN Patient's Own Medication [Ptom] Med 05/08/18 09:00 Active 1 each INH DAILY Sodium Chloride 0.9% [Saline Flush] Med 05/07/18 14:50 Active 2.5 ml FLUSH ASDIRECTED PRN predniSONE Med 05/07/18 15:15 Active 10 mg PO DAILY Saline Lock Insert [OM.PC] Routine Oth 05/07/18 14:50 Ordered Resuscitation Status Routine Resus Stat 05/07/18 14:50 Ordered Medication Orders Acetaminophen (Tylenol) 650 mg PO Q4H PRN PRN Reason: Pain (mild 1-3) Aspirin (Halfprin) 81 mg PO DAILY ANGELIA Last Admin: 05/07/18 15:23 Dose: 81 mg Benzonatate (Tessalon Perles) 100 mg PO TID PRN PRN Reason: Cough Last Admin: 05/07/18 15:24 Dose: 100 mg Clonazepam (Klonopin) 0.5 mg PO TID PRN PRN Reason: tremors Diltiazem HCl (Cardizem) 30 mg PO Q6HR [facility] Last Admin: 05/07/18 18:17 Dose: 30 mg Admin: 05/07/18 15:24 Dose: 30 mg Enoxaparin Sodium (Lovenox) 40 mg SUBCUT Q24H [facility] Omeprazole (Omeprazole) 40 mg PO BIDAC [facility] Last Admin: 05/07/18 18:16 Dose: 40 mg Ondansetron HCl (Zofran) 4 mg IVPUSH Q4H PRN PRN Reason: Nausea Stiolto Respimat 1 (Puff) 1 each INH DAILY [facility] Prednisone (Prednisone) 10 mg PO DAILY [facility] Last Admin: 05/07/18 15:23 Dose: 10 mg Sodium Chloride (Saline Flush) 2.5 ml FLUSH ASDIRECTED PRN PRN Reason: Keep Vein Open Triamterene/HCTZ (Maxzide 25-37.5 Mg) 1 each PO DAILY [facility]
[2018-05-07] MEDS ORDERED: Sodium Chloride 0.9% 2.5 ML Syringe FLUSH PRN (14:50)
[2018-05-07] MEDS ORDERED: Acetaminophen 325 MG Tab PO PRN (14:50)
[2018-05-07] MEDS ORDERED: Ondansetron 4 MG/2 ML SDV IVPUSH PRN (14:50)
[2018-05-07] MEDS ORDERED: Potassium Chloride 20 MEQ Tab.ER PO ONE (15:00)
[2018-05-07] MEDS: predniSONE 10 MG Tab PO SCH (15:23)
[2018-05-07] MEDS: Aspirin 81 MG Tab.EC PO SCH (15:23)
[2018-05-07] MEDS: Benzonatate 100 MG Cap PO PRN (15:24)
[2018-05-07] MEDS: ClonazePAM 0.5 MG Tab PO PRN ×2 (15:24→22:05)
[2018-05-07] MEDS: Diltiazem IR 30 MG Tab PO SCH ×3 (15:24→23:50)
[2018-05-07] MEDS: Omeprazole 20 MG Cap.CR PO SCH (18:16)
[2018-05-08] MEDS: Diltiazem IR 30 MG Tab PO SCH (05:51)
[2018-05-08] MEDS: Omeprazole 20 MG Cap.CR PO SCH (06:41)
[2018-05-08] MEDS: Aspirin 81 MG Tab.EC PO SCH (08:34)
[2018-05-08] MEDS: predniSONE 10 MG Tab PO SCH (08:34)
[2018-05-08] MEDS ORDERED: Hydrochlorothiazide/Triamterene 25-37.5 Tab PO SCH (09:00)
[2018-05-08] MEDS ORDERED: Apixaban 5 MG Tab PO SCH (09:00)
[2018-05-08] MEDS: Benzonatate 100 MG Cap PO PRN (09:49)
[2018-05-08] MEDS: STIOLTO RESPIMAT INH SCH ×2 (10:31→10:36)
--- NOTE | 2018-05-08 11:04 | PCM.DCSUM1 ---
Discharge Summary - Hospital Course Diagnosis: Stroke: No - Discharge Data Discharge Date: 05/08/18 Discharge Disposition: Home, Self-Care 01 Condition: Good - Patient Summary/Data Hospital Course: The patient is a 62-year-old lady who had been admitted secondary to rapid heart rate. The patient was found to be in atrial fibrillation with rapid ventricular response rate. The patient initially had been treated with IV Cardizem and this slowed her heart rate significantly. Initially, upon presentation the patient's pulse rate was at 157 bpm. After IV Cardizem the patient's pulse rate had remained between 90 and 110. The patient also was asymptomatic. She had no chest pain. No shortness of breath. The patient also had a troponin that was undetectable initially. EKG showed atrial fibrillation with RVR. The patient had remained hemodynamically stable throughout the course of hospitalization. The patient was also discharged from hospitalization on Cardizem 240 mg by mouth daily along with Eliquis 5 mg by mouth twice a day. A discussion of the risks benefits and alternatives were held with the patient and her and it was elected to place the patient on Eliquis. The patient says that she felt like she could go home. The patient also had been tolerating her diet. She is recommended continue with a heart healthy diet. She is also to follow-up with her primary care physician. The patient is also to have activity as tolerated. The patient should follow up with cardiology as well. The patient has been hemodynamically stable and she has been discharged from hospitalization with recommendations listed above. - Patient Instructions Diet: Heart Healthy Diet Activity: As Tolerated Driving: May Drive Today - Discharge Plan *PRESCRIPTION DRUG MONITORING PROGRAM REVIEWED*: No *COPY OF PRESCRIPTION DRUG MONITORING REPORT IN PATIENT ADARSH: No Prescriptions/Med Rec: Apixaban [Eliquis] 5 mg PO BID #60 tablet Diltiazem [Cardizem CD] 240 mg PO DAILY #30 cap.er Home Medications: Home Meds ClonazePAM [KlonoPIN] 1 tab PO BEDTIME PRN 09/10/15 [History] Omeprazole 40 mg PO DAILY 09/10/15 [History] Triamterene/Hydrochlorothiazid [Triamterene-HCTZ 37.5-25 MG] 1 tab PO DAILY [History] Tiotropium Br/Olodaterol HCl [Stiolto Respimat Inhal [place]] 1 puff INH DAILY [History] Apixaban [Eliquis] 5 mg PO BID #60 tablet 05/08/18 [Rx] Diltiazem [Cardizem CD] 240 mg PO DAILY #30 cap.er 05/08/18 [Rx] Oxygen Therapy Mode: Room Air Patient Handouts: Shoulder Pain, Heart Disease Prevention, Diltiazem tablets, Apixaban oral tablets, Atrial Fibrillation, [id number] Referrals: Ophelia Bridges MD [Physician] - 06/07/18 11:00 am PCP,None [Primary Care Provider] - Jevon Paredes MD [Ordering Only Provider] - 05/14/18 9:15 am - Discharge Summary/Plan Comment DC Time >30 min.: Yes - General Info Date of Service: 05/08/18 Admission Dx/Problem (Free Text: Admission Diagnosis/Problem Admission Diagnosis/Problem Atrial fibrillation with rapid ventricular response Functional Status: Reports: Pain Controlled - Review of Systems General: Reports: No Symptoms HEENT: Reports: No Symptoms Pulmonary: Reports: No Symptoms Cardiovascular: Reports: No Symptoms Gastrointestinal: Reports: No Symptoms Genitourinary: Reports: No Symptoms Musculoskeletal: Reports: No Symptoms Skin: Reports: No Symptoms Neurological: Reports: No Symptoms Psychiatric: Reports: No Symptoms - Patient Data Vitals - Most Recent: Last Vital Signs Temp 36.8 C 05/08/18 08:00 Pulse 120 H 05/08/18 08:00 Resp 18 05/08/18 08:00 BP 138/82 05/08/18 08:00 Pulse Ox 93 L 05/08/18 08:00 Weight - Most Recent: 60.917 kg I&O - Last 24 hours: Intake & Output 05/07/18 05/08/18 05/08/18 22:59 06:59 14:59 Intake Total 300 800 Output Total 200 630 Balance 100 170 Lab Results - Last 24 hrs: Laboratory Results - last 24 hr 05/07/18 05/07/18 05/07/18 Range/Units 11:51 11:51 11:51 WBC 12.73 H (4.0-11.0) K/uL RBC 4.25 L (4.30-5.90) M/uL Hgb 13.8 (12.0-16.0) g/dL Hct 40.2 (36.0-46.0) % MCV 94.6 (80.0-98.0) fL MCH 32.5 H (27.0-32.0) pg MCHC 34.3 (31.0-37.0) g/dL RDW Std Deviation 51.4 (28.0-62.0) fl RDW Coeff of Lisa 15 (11.0-15.0) % Plt Count 229 (150-400) K/uL MPV 10.10 (7.40-12.00) fL Neut % (Auto) 60.9 (48.0-80.0) % Lymph % (Auto) 30.6 (16.0-40.0) % [place] % (Auto) 7.0 (0.0-15.0) % Eos % (Auto) 1.1 (0.0-7.0) % Baso % (Auto) 0.4 (0.0-1.5) % Neut # (Auto) 7.8 H (1.4-5.7) K/uL Lymph # (Auto) 3.9 H (0.6-2.4) K/uL [place] # (Auto) 0.9 H (0.0-0.8) K/uL Eos # (Auto) 0.1 (0.0-0.7) K/uL Baso # (Auto) 0.1 (0.0-0.1) K/uL Nucleated RBC % 0.0 /100WBC Nucleated RBCs # 0 K/uL Sodium 134 L (136-145) mmol/L Potassium 3.4 L (3.5-5.1) mmol/L Chloride 98 (98-107) mmol/L Carbon Dioxide 27.9 (21.0-32.0) mmol/L BUN 22 H (7.0-18.0) mg/dL Creatinine 1.3 H (0.6-1.0) mg/dL Est Cr Clr Drug Dosing 37.12 mL/min Estimated GFR (MDRD) 41.5 ml/min Glucose 123 H (74-106) mg/dL Calcium 8.8 (8.5-10.1) mg/dL Magnesium (1.8-2.4) mg/dL Total Bilirubin 0.7 (0.2-1.0) mg/dL AST 26 (15-37) IU/L ALT 62 (14-63) IU/L Alkaline Phosphatase 59 (46-116) U/L Troponin I < 0.050 (0.000-0.056) ng/mL B-Natriuretic Peptide 495 H (<100) PG/ML Total Protein 6.5 (6.4-8.2) g/dL Albumin 3.5 (3.4-5.0) g/dL Globulin 3.0 (2.6-4.0) g/dL Albumin/Globulin Ratio 1.2 (0.9-1.6) 05/07/18 05/08/18 05/08/18 Range/Units 11:51 05:54 05:54 WBC 9.06 (4.0-11.0) K/uL RBC 3.85 L (4.30-5.90) M/uL Hgb 12.2 (12.0-16.0) g/dL Hct 36.1 (36.0-46.0) % MCV 93.8 (80.0-98.0) fL MCH 31.7 (27.0-32.0) pg MCHC 33.8 (31.0-37.0) g/dL RDW Std Deviation 50.7 (28.0-62.0) fl RDW Coeff of Lisa 15 (11.0-15.0) % Plt Count 196 (150-400) K/uL MPV 9.90 (7.40-12.00) fL Neut % (Auto) 62.5 (48.0-80.0) % Lymph % (Auto) 28.9 (16.0-40.0) % [place] % (Auto) 7.2 (0.0-15.0) % Eos % (Auto) 1.1 (0.0-7.0) % Baso % (Auto) 0.3 (0.0-1.5) % Neut # (Auto) 5.7 (1.4-5.7) K/uL Lymph # (Auto) 2.6 H (0.6-2.4) K/uL [place] # (Auto) 0.7 (0.0-0.8) K/uL Eos # (Auto) 0.1 (0.0-0.7) K/uL Baso # (Auto) 0.0 (0.0-0.1) K/uL Nucleated RBC % 0.0 /100WBC Nucleated RBCs # 0 K/uL Sodium 136 (136-145) mmol/L Potassium 4.1 (3.5-5.1) mmol/L Chloride 100 (98-107) mmol/L Carbon Dioxide 24.9 (21.0-32.0) mmol/L BUN 20 H (7.0-18.0) mg/dL Creatinine 1.2 H (0.6-1.0) mg/dL Est Cr Clr Drug Dosing 40.21 mL/min Estimated GFR (MDRD) 45.5 ml/min Glucose 88 (74-106) mg/dL Calcium 8.1 L (8.5-10.1) mg/dL Magnesium 2.0 1.8 (1.8-2.4) mg/dL Total Bilirubin (0.2-1.0) mg/dL AST (15-37) IU/L ALT (14-63) IU/L Alkaline Phosphatase (46-116) U/L Troponin I (0.000-0.056) ng/mL B-Natriuretic Peptide (<100) PG/ML Total Protein (6.4-8.2) g/dL Albumin (3.4-5.0) g/dL Globulin (2.6-4.0) g/dL Albumin/Globulin Ratio (0.9-1.6) Med Orders - Current: Current Medications Acetaminophen (Tylenol) 650 mg PO Q4H PRN PRN Reason: Pain (mild 1-3) Apixaban (Eliquis) 5 mg PO BID [facility] Last Admin: 05/08/18 08:34 Dose: 5 mg Aspirin (Halfprin) 81 mg PO DAILY [facility] Last Admin: 05/08/18 08:34 Dose: 81 mg Benzonatate (Tessalon Perles) 100 mg PO TID PRN PRN Reason: Cough Last Admin: 05/08/18 09:49 Dose: 100 mg Clonazepam (Klonopin) 0.5 mg PO TID PRN PRN Reason: tremors Last Admin: 05/07/18 22:05 Dose: 0.5 mg Diltiazem HCl (Cardizem) 30 mg PO Q6HR [facility] Last Admin: 05/08/18 05:51 Dose: 30 mg Omeprazole (Omeprazole) 40 mg PO BIDAC [facility] Last Admin: 05/08/18 06:41 Dose: 40 mg Ondansetron HCl (Zofran) 4 mg IVPUSH Q4H PRN PRN Reason: Nausea Stiolto Respimat 1 (Puff) 1 each INH DAILY [facility] Last Admin: 05/08/18 10:36 Dose: 1 each Prednisone (Prednisone) 10 mg PO DAILY [facility] Last Admin: 05/08/18 08:34 Dose: 10 mg Sodium Chloride (Saline Flush) 2.5 ml FLUSH ASDIRECTED PRN PRN Reason: Keep Vein Open Triamterene/HCTZ (Maxzide 25-37.5 Mg) 1 each PO DAILY [facility] Last Admin: 05/08/18 08:34 Dose: 1 each Discontinued Medications Adenosine (Adenocard) Confirm Administered Dose 6 mg .ROUTE .STK-MED ONE Stop: 05/07/18 11:43 Last Admin: 05/07/18 11:56 Dose: Not Given Diltiazem HCl (Diltiazem) 25 mg IVPUSH ONETIME ONE Stop: 05/07/18 11:52 Last Admin: 05/07/18 12:03 Dose: 25 mg Enoxaparin Sodium (Lovenox) 60 mg SUBCUT ONETIME ONE Stop: 05/07/18 11:52 Last Admin: 05/07/18 12:07 Dose: 60 mg Enoxaparin Sodium (Lovenox) 40 mg SUBCUT Q24H [facility] Lorazepam (Ativan) 1 mg IVPUSH ONETIME ONE Stop: 05/07/18 13:33 Last Admin: 05/07/18 13:43 Dose: 1 mg Potassium Chloride (Klor-Con M20) 40 meq PO ONETIME ONE Stop: 05/07/18 15:01 Last Admin: 05/07/18 15:23 Dose: 40 meq - Exam Quality Assessment: Denies: Supplemental Oxygen General: Reports: Alert, Oriented, Cooperative, No Acute Distress HEENT: Reports: Pupils Equal, Pupils Reactive Neck: Reports: Supple, Trachea Midline Lungs: Reports: Clear to Auscultation, Normal Respiratory Effort Cardiovascular: Reports: Regular Rate (85 bpm on monitor), Irregular Rhythm. Denies: Murmurs GI/Abdominal Exam: Normal Bowel Sounds, Soft, Non-Tender, No Distention (Female) Exam: Deferred Rectal (Female) Exam: Deferred Back Exam: Reports: Normal Inspection, Full Range of Motion, Other (Cervical muscle tic) Extremities: Normal Inspection, No Pedal Edema Skin: Reports: Warm, Dry, Intact Neurological: Reports: No New Focal Deficit Psy/Mental Status: Reports: Alert, Normal Affect
[2018-05-08 12:20] VITALS: BP 131/7
[2018-05-08] MEDS ORDERED: Enoxaparin 40 MG/0.4 ML Syringe SUBCUT SCH (15:00)
== END 2018-05-08 12:30 | disposition home or self-care (01) | DRG 201 ==
LOC: MW.ED 11:36 → MW.MS 14:34
PROVIDERS: ADMIT Internal Medicine; ATTEND Internal Medicine
DX: I48.91 Unspecified atrial fibrillation (principal); G24.3 Spasmodic torticollis; I10 Essential (primary) hypertension; G25.2 Other specified forms of tremor; M06.9 Rheumatoid arthritis, unspecified; F17.210 Nicotine dependence, cigarettes, uncomplicated; K21.9 Gastro-esophageal reflux disease without esophagitis; F41.9 Anxiety disorder, unspecified; Z98.891 History of uterine scar from previous surgery; Z79.899 Other long term (current) drug therapy; Z79.52 Long term (current) use of systemic steroids; Z88.2 Allergy status to sulfonamides
CPT/HCPCS: 36415; 71045; 71045-26; 80048; 80053; 83735; 83880; 84484; 85025; 93005; 96372; 96374; 96375; 99284; 99285-25; A9270-GY; J1650; J2060; J3490

== ENCOUNTER 2018-11-01 08:38 | Day surgery (SDC) | payer BC, MEDICARE ==
[~2018-11-01 08:38] MED LIST: Lactated Ringers 1,000 ML IV SCH
[2018-11-01] MEDS ORDERED: Propofol 200 MG/20 ML SDV ONE ×5 (09:30→12:11)
[2018-11-01] MEDS ORDERED: Lidocaine 2% 5 ML SDV ONE (09:30)
[2018-11-01] MEDS ORDERED: Ketamine 500 mg/10 ML MDV ONE (09:30)
[2018-11-01] MEDS ORDERED: Glycopyrrolate 0.2 MG/ML SDV ONE ×2 (09:30→09:31)
--- NOTE | 2018-11-01 09:32 | PCM.PREANE ---
Preanesthetic Assessment - Anesthesia/Transfusion/Family Hx Anesthesia History: Prior Anesthesia Without Reaction Family History of Anesthesia Reaction: No Transfusion History: No Prior Transfusion(s) - Physical Assessment NPO Status Date: 10/31/18 Vital Signs: Last Vital Signs Temp 98.8 F 11/01/18 08:50 Pulse 87 11/01/18 08:50 Resp 16 11/01/18 08:50 BP 167/80 H 11/01/18 08:50 Pulse Ox 94 L 11/01/18 08:50 Height: 5 ft 3 in Weight: 58.513 kg ASA Class: 3 Mental Status: Alert & Oriented x3 Airway Class: Mallampati = 3 ROM/Head Extension: Full Lungs: Clear to Auscultation, Normal Respiratory Effort Cardiovascular: Regular Rate, Regular Rhythm - Allergies Allergies/Adverse Reactions: Allergies Allergy/AdvReac Type Severity Reaction Status Date / Time Sulfa (Sulfonamide Allergy paresthesia Verified 10/26/18 15:59 Antibiotics) - Anesthesia Plan Pre-Op Medication Ordered: None - Acknowledgements Anesthesia Type Planned: General Anesthesia Pt an Appropriate Candidate for the Planned Anesthesia: Yes Alternatives and Risks of Anesthesia Discussed w Pt/Guardian: Yes Pt/Guardian Understands and Agrees with Anesthesia Plan: Yes Additional Comments: PMH: chronic afib- stopped elliquis 2 day ago instead of 3- on digitalis no recent level- stopped calcium 1 month ago- no repeat calcium levels, CKD with gfr of 45, RA- on mrthotrexate and prednisone, HTN, gerd, 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-last dose 5-6 weeks ago- also on clonazepam for this PLAN: check calcium and dig level, consider postponing endoscopy with elliquis stopped 2 days ago in the presence of CKD, TIVA or GET with muscle paralysis to block spastic torticolois PreAnesthesia Questionnaire HEENT History: Reports: Cataract, Other (See Below) Other HEENT History: wears glasses, 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 Cardiovascular History: Reports: Afib, Hypertension Other Cardiovascular History: states A-Fib has converted but still takes medications Respiratory History: Reports: None Gastrointestinal History: Reports: Colon Polyp, GERD, PUD Other Gastrointestinal History: currently has rectal bleeding and abdominal bloating 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 idiopathic tremors x 25 years Psychiatric History: Reports: Anxiety Endocrine/Metabolic History: Reports: None Hematologic History: Reports: None Immunologic History: Reports: Immunosuppression Oncologic (Cancer) History: Reports: None Dermatologic History: Reports: None - Past Surgical History HEENT Surgical History: Reports: Tonsillectomy GI Surgical History: Reports: Colonoscopy Female Surgical History: Reports: Section Other Female Surgeries/Procedures: x2 Neurological Surgical History: Reports: Other (See Below) Other Neurological Surgeries/Procedures: hx of Cervical Spine Nerve Ablation for neck spasms (20 years ago) - SUBSTANCE USE Smoking Status *Q: Former Smoker Tobacco Use Within Last Twelve Months: Cigarettes - HOME MEDS Home Medications: Home Meds ClonazePAM [KlonoPIN] 0.5 mg PO BEDTIME PRN 09/10/15 [History] Omeprazole 20 mg PO DAILY 09/10/15 [History] Tiotropium Br/Olodaterol HCl [Stiolto Respimat Inhal [place]] 2 puff INH QAM 03/31 [History] Apixaban [Eliquis] 5 mg PO DAILY 10/26/18 [History] Calcium Carbonate [Calcium] 600 mg PO DAILY 10/26/18 [History] Cholecalciferol (Vitamin D3) [Vitamin D3] 1,000 unit PO DAILY 10/26/18 [History] Digoxin 125 mcg PO QAM 10/26/18 [History] Folic Acid 1 mg PO DAILY 10/26/18 [History] Furosemide 20 mg PO QPM 10/26/18 [History] Furosemide 40 mg PO QAM 10/26/18 [History] Lidocaine/Prilocaine [Lidocaine-Prilocaine Cream] 1 dose TOP DAILY PRN 10/26/18 [History] Magnesium Oxide 400 mg PO DAILY 10/26/18 [History] Methotrexate 15 mg PO WEEKLY 10/26/18 [History] Potassium Chloride [Klor-Con] 20 meq PO DAILY 10/26/18 [History] Verapamil HCl [Verapamil] 120 mg PO TID 10/26/18 [History] predniSONE [Prednisone] 5 mg PO DAILY 10/26/18 [History] - CURRENT (IN HOUSE) MEDS Current Meds: Current Medications Lactated Ringer's (Ringers, Lactated) 1,000 mls @ 125 mls/hr IV ASDIRECTED ANGELIA
--- NOTE | 2018-11-01 12:40 | PCM.OPNOTE ---
- General Post-Op/Procedure Note Date of Surgery/Procedure: 11/01/18 Operative Procedure(s): Esophagogastroduodenoscopy with gastric and esophageal biopsies. Colonoscopy with cold ascending colon and rectal polypectomies. Pre Op Diagnosis: Progressive gastroesophageal reflux disease. Epigastric pain. Rectal bleeding with personal history of colon polyps. Post-Op Diagnosis: Chronic gastritis. Esophagitis. Ascending colon and rectal polyps. Anesthesia Technique: MAC (ASA III) Primary Surgeon: Nando Cook Condition: Good Free Text/Narrative:: DICTATION [id number] CPT CODE [id number]/[id number]
[2018-11-01] MEDS ORDERED: Lactated Ringers 1,000 ML IV SCH (12:45)
--- NOTE | 2018-11-01 12:50 | PCM48HPAN ---
Post Anesthesia Note - EVALUATION WITHIN 48HRS OF ANESTHETIC Vital Signs in Normal Range: Yes Patient Participated in Evaluation: Yes Respiratory Function Stable: Yes Airway Patent: Yes Cardiovascular Function Stable: Yes Hydration Status Stable: Yes Pain Control Satisfactory: Yes Nausea and Vomiting Control Satisfactory: Yes Mental Status Recovered: Yes Vital Signs: Last Vital Signs Temp 98.8 F 11/01/18 08:50 Pulse 74 11/01/18 12:45 Resp 18 11/01/18 12:45 BP 147/64 H 11/01/18 12:45 Pulse Ox 95 11/01/18 12:45
--- NOTE | 2018-11-01 12:50 | PCM.POSTAN ---
POST ANESTHESIA ASSESSMENT - MENTAL STATUS Mental Status: Alert, Oriented - VITAL SIGNS Vital Signs: Last Vital Signs Temp 98.8 F 11/01/18 08:50 Pulse 74 11/01/18 12:45 Resp 18 11/01/18 12:45 BP 147/64 H 11/01/18 12:45 Pulse Ox 95 11/01/18 12:45 - RESPIRATORY Respiratory Status: Respiratory Rate WNL, Airway Patent, O2 Saturation Stable - CARDIOVASCULAR CV Status: Pulse Rate WNL, Blood Pressure Stable - GASTROINTESTINAL GI Status: No Symptoms - POST OP HYDRATION Hydration Status: Adequate & Stable
[2018-11-01 13:08] VITALS: BP 158/59; PULSE 80
--- NOTE | 2018-11-01 13:25 | OR ---
SURGEON: Nando Cook M.D. DATE OF PROCEDURE: 11/01/2018 OPERATION PERFORMED: Esophagogastroduodenoscopy with biopsy. ANESTHESIA: MAC. ASA CLASSIFICATION: III. PREOPERATIVE DIAGNOSIS: Chronic gastroesophageal reflux disease with epigastric pain and abdominal bloating. POSTOPERATIVE DIAGNOSES: 1. Mild gastritis. 2. Esophagitis. DESCRIPTION OF PROCEDURE: The patient was taken to the operating room and placed on the endoscopy cart in the left lateral decubitus position. Time-out was called for appropriate identification of the patient and procedure. Following induction of sedation, the bite block was placed between the patient's teeth. The gastroscope was inserted through the bite block into the oropharynx and advanced without difficulty through the esophagus and stomach into the duodenum, where examination could now be carried out in a retrograde fashion. The duodenum shows no acute inflammatory changes or ulcerations. The stomach does show a mild to moderate gastritis. Antral biopsies were obtained to look for the presence of Helicobacter pylori. The gastroscope was retroflexed to visualize the proximal stomach. No tumors or ulcers were noted proximally. The gastroscope was then straightened and slowly withdrawn. The patient does have some mild esophagitis. Separate biopsies of the distal esophagus at the Z-line were obtained. The esophagus itself demonstrates fair contractility. No mid or proximal lesions were identified. Vocal cords were not visualized as the scope was withdrawn. The patient tolerated the procedure well and following colonoscopy was taken to recovery room in stable condition. MAGALI MAE /[id number]
--- NOTE | 2018-11-01 13:28 | OR ---
SURGEON: Nando Cook M.D. DATE OF PROCEDURE: 11/01/2018 OPERATION PERFORMED: Colonoscopy with cold ascending colon polypectomy and cold rectal polypectomies. PRIMARY SURGEON: Nando Cook MD. ANESTHESIA: MAC. ASA CLASSIFICATION: III. PREOPERATIVE DIAGNOSIS: Rectal bleeding. POSTOPERATIVE DIAGNOSIS: Ascending colon and rectal polyps. DESCRIPTION OF PROCEDURE: With the patient having completed esophagogastroduodenoscopy, she was maintained in a left lateral decubitus position. The colonoscope was inserted into the rectum and advanced with minimal difficulty to the cecum. Despite multiple maneuvers, I was not able to retroflex the colonoscope in the cecum. The colonoscope was slowly withdrawn, and in the proximal ascending colon, two polyps were identified. They were in close proximity, and they were removed with the cold biopsy forceps. The remainder of the ascending colon, hepatic flexure, transverse colon, splenic flexure, descending colon, and sigmoid colon showed no tumors, polyps, diverticula, angiodysplasia, or evidence of inflammatory bowel disease. Polyps were encountered in the rectum and likewise removed with the cold biopsy forceps. Again, they were in close proximity and were sent as a single specimen. The colonoscope was then retroflexed to visualize the anal orifice from above. Again, no tumors or polyps were seen and there were no acute hemorrhoidal changes. The colonoscope was then straightened, the rectum aspirated, and the colonoscope removed. MAGALI / CARMELITA /[id number]
== END 2018-11-01 13:25 | disposition home or self-care (01) ==
LOC: MW.SDS 08:38
PROVIDERS: ATTEND Surgery
DX: D12.2 Benign neoplasm of ascending colon (principal); K62.1 Rectal polyp; K21.0 Gastro-esophageal reflux disease with esophagitis; K29.50 Unspecified chronic gastritis without bleeding; K62.5 Hemorrhage of anus and rectum; I48.1 Persistent atrial fibrillation; I12.9 Hypertensive chronic kidney disease with stage 1 through stage 4 chronic kidney disease, or unspecified chronic kidney disease; N18.9 Chronic kidney disease, unspecified; F17.210 Nicotine dependence, cigarettes, uncomplicated; G47.33 Obstructive sleep apnea (adult) (pediatric); M06.9 Rheumatoid arthritis, unspecified; Z88.2 Allergy status to sulfonamides; Z87.11 Personal history of peptic ulcer disease; Z86.010 Personal history of colon polyps; Z79.52 Long term (current) use of systemic steroids; Z79.01 Long term (current) use of anticoagulants; Z79.899 Other long term (current) drug therapy
CPT/HCPCS: 36415; 43239; 45380; 80162; 82310; J2704; J7120; 88305; 88312; J0330; J2001; J3490

== ENCOUNTER 2020-02-02 09:09 | Day surgery (SDC) | payer BC, MEDICARE ==
[~2020-02-02 09:09] MED LIST changes: +Bupivacaine 0.5% 30 ML SDV ONE; +Sodium Chloride 0.9% 10 ML SDV IV PRN; +Sodium Chloride 0.9% 10 ML Syringe FLUSH PRN; +Sodium Chloride 0.9% 2.5 ML Syringe FLUSH PRN
[2020-02-02] MEDS ORDERED: Midazolam 1 MG/ML 2 ML SDV ONE (10:28)
[2020-02-02] MEDS ORDERED: fentaNYL 100 MCG/2 ML SDV ONE (10:28)
[2020-02-02] MEDS ORDERED: Propofol 200 MG/20 ML SDV ONE (10:28)
--- NOTE | 2020-02-02 10:33 | PCM.PREANE ---
Preanesthetic Assessment - Anesthesia/Transfusion/Family Hx Anesthesia History: Prior Anesthesia Without Reaction Family History of Anesthesia Reaction: No Transfusion History: No Prior Transfusion(s) Intubation History: Unknown - Review of Systems General: No Symptoms Pulmonary: No Symptoms Cardiovascular: No Symptoms Gastrointestinal: No Symptoms Neurological: No Symptoms Other: Reports: None - Physical Assessment Vital Signs: Last Vital Signs Temp 36.1 C 02/02/20 09:55 Pulse 88 02/02/20 09:55 Resp 16 02/02/20 09:55 BP 156/76 H 02/02/20 09:55 Pulse Ox 95 02/02/20 09:55 Height: 5 ft 3 in Weight: 56.699 kg ASA Class: 2 Mental Status: Alert & Oriented x3 Airway Class: Mallampati = 2 Dentition: Reports: Normal Dentition Thyro-Mental Finger Breadths: 3 Mouth Opening Finger Breadths: 3 ROM/Head Extension: Full Lungs: Clear to Auscultation, Normal Respiratory Effort Cardiovascular: Regular Rate, Regular Rhythm - Allergies Allergies/Adverse Reactions: Allergies Allergy/AdvReac Type Severity Reaction Status Date / Time Sulfa (Sulfonamide Allergy paresthesia Verified 01/27/20 13:09 Antibiotics) - Blood Blood Available: No - Anesthesia Plan Pre-Op Medication Ordered: None - Acknowledgements Anesthesia Type Planned: MAC Pt an Appropriate Candidate for the Planned Anesthesia: Yes Alternatives and Risks of Anesthesia Discussed w Pt/Guardian: Yes Pt/Guardian Understands and Agrees with Anesthesia Plan: Yes PreAnesthesia Questionnaire HEENT History: Reports: Cataract, Impaired Vision, Other (See Below) Other HEENT History: wears glasses Cardiovascular History: Reports: Afib, Hypertension Other Cardiovascular History: states A-Fib has converted but still takes medications Respiratory History: Reports: COPD, Sleep Apnea (not using CPAP) Gastrointestinal History: Reports: Colon Polyp, GERD Genitourinary History: Reports: None 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: Musculoskeletal History: Reports: Fracture, Neck Pain, Chronic, RA Other Musculoskeletal History: has RA in hands, hx of fx finger, hx of Spasmotic Torticollis Other Neuro History: spasmatic torticollis; states head shakes and has tremors (dystonia) Psychiatric History: Reports: None Endocrine/Metabolic History: Reports: None Hematologic History: Reports: None Immunologic History: Reports: Immunosuppression Other Immunologic History: states has MRSA with the infection right buttock open sore Oncologic (Cancer) History: Reports: None Dermatologic History: Reports: Other (See Below) Other Dermatologic History: states has an open sore right buttock - Infectious Disease History Infectious Disease History: Reports: MRSA Other Infectious Disease History: open sore right buttock - Past Surgical History Head Surgeries/Procedures: Reports: None HEENT Surgical History: Reports: Tonsillectomy Cardiovascular Surgical History: Reports: None Respiratory Surgical History: Reports: None GI Surgical History: Reports: Colonoscopy Female Surgical History: Reports: None, Section Other Female Surgeries/Procedures: x2 Endocrine Surgical History: Reports: None Neurological Surgical History: Reports: Other (See Below) Other Neurological Surgeries/Procedures: hx of Cervical Spine Nerve Ablation for neck spasms (20 years ago) Musculoskeletal Surgical History: Reports: None Oncologic Surgical History: Reports: None - SUBSTANCE USE Tobacco Use Status *Q: Current Every Day Tobacco User (1/2 ppd) Tobacco Use Within Last Twelve Months: Cigarettes - HOME MEDS Home Medications: Home Meds ClonazePAM [KlonoPIN] 0.5 mg PO BEDTIME PRN 09/10/15 [History] Tiotropium Br/Olodaterol HCl [Stiolto Respimat Inhal [place]] 2 puff INH QAM 03/31/18 [History] Apixaban [Eliquis] 5 mg PO DAILY 10/26/18 [History] Calcium Carbonate [Calcium] 600 mg PO DAILY 10/26/18 [History] Cholecalciferol (Vitamin D3) [Vitamin D3] 1,000 unit PO DAILY 10/26/18 [History] Digoxin 125 mcg PO QAM 10/26/18 [History] Folic Acid 1 mg PO DAILY 10/26/18 [History] Magnesium Oxide 400 mg PO DAILY 10/26/18 [History] Methotrexate 15 mg PO WEEKLY 10/26/18 [History] Potassium Chloride [Klor-Con] 20 meq PO DAILY 10/26/18 [History] Verapamil HCl [Verapamil] 120 mg PO TID 10/26/18 [History] predniSONE [Prednisone] 5 mg PO DAILY 10/26/18 [History] Mupirocin Oint [Bactroban Oint] 1 applic TOP TID 01/27/20 [History] - CURRENT (IN HOUSE) MEDS Current Meds: Current Medications Lactated Ringer's (Ringers, Lactated) 1,000 mls @ 125 mls/hr IV ASDIRECTED ANGELIA Last Admin: 02/02/20 10:05 Dose: 125 mls/hr Documented by: Sodium Chloride (Normal Saline) 10 ml IV ASDIRECTED PRN PRN Reason: IV Use Sodium Chloride (Saline Flush) 10 ml FLUSH ASDIRECTED PRN PRN Reason: Keep Vein Open Sodium Chloride (Saline Flush) 2.5 ml FLUSH ASDIRECTED PRN PRN Reason: Keep Vein Open Discontinued Medications Bupivacaine HCl (Marcaine 0.5%) Confirm Administered Dose 30 ml .ROUTE .ST-MED ONE Stop: 02/02/20 07:17
[2020-02-02] MEDS ORDERED: Octyl 2-Cyanoacrylate 1 Tube ONE (10:54)
[2020-02-02] MEDS ORDERED: Lidocaine 1% 20 ML MDV ONE (10:54)
[2020-02-02] MEDS ORDERED: Bupivacaine 0.5% 30 ML SDV ONE (10:54)
--- NOTE | 2020-02-02 12:01 | PCM.OPNOTE ---
- General Post-Op/Procedure Note Date of Surgery/Procedure: 02/02/20 Operative Procedure(s): Right buttock skin lesion excisional biopsy Findings: Stage 1 pressure sore over coccyx, plaque like lesions on right buttocks. 1.5 x 1 x 1 cm skin lesion biopsy. Pre Op Diagnosis: Right buttock non-healing skin lesion Post-Op Diagnosis: Right buttock non-healing skin lesion , stage 1 pressure sore Anesthesia Technique: General LMA, Local Primary Surgeon: Mckenzie Zuniga Fluid Replacement, Intraop: 400 EBL in mLs: 2 Condition: Good
--- NOTE | 2020-02-02 12:17 | PCM.POSTAN ---
POST ANESTHESIA ASSESSMENT - MENTAL STATUS Mental Status: Alert, Oriented - VITAL SIGNS Vital Signs: Last Vital Signs Temp 36.1 C 02/02/20 09:55 Pulse 76 02/02/20 12:07 Resp 20 02/02/20 12:07 BP 138/56 L 02/02/20 12:07 Pulse Ox 95 02/02/20 12:07 - RESPIRATORY Respiratory Status: Respiratory Rate WNL, Airway Patent, O2 Saturation Stable - CARDIOVASCULAR CV Status: Pulse Rate WNL, Blood Pressure Stable - GASTROINTESTINAL GI Status: No Symptoms - PAIN Pain Score: 0 - POST OP HYDRATION Hydration Status: Adequate & Stable - OBSERVATIONS Free Text/Narrative:: No anesthesia problems
--- NOTE | 2020-02-02 12:43 | PCM48HPAN ---
Post Anesthesia Note - EVALUATION WITHIN 48HRS OF ANESTHETIC Vital Signs in Normal Range: Yes Patient Participated in Evaluation: Yes Respiratory Function Stable: Yes Airway Patent: Yes Cardiovascular Function Stable: Yes Hydration Status Stable: Yes Pain Control Satisfactory: Yes Nausea and Vomiting Control Satisfactory: Yes Mental Status Recovered: Yes Vital Signs: Last Vital Signs Temp 36.1 C 02/02/20 09:55 Pulse 76 02/02/20 12:07 Resp 20 02/02/20 12:07 BP 138/56 L 02/02/20 12:07 Pulse Ox 95 02/02/20 12:07 - COMMENTS/OBSERVATIONS Free Text/Narrative:: No anesthesia problems
[2020-02-02 13:39] VITALS: BP 143/67; PULSE 77
--- NOTE | 2020-02-02 14:15 | OR ---
SURGEON: MCKENZIE ZUNIGA MD DATE OF PROCEDURE: 02/02/2020 PREOPERATIVE DIAGNOSIS: Nonhealing skin lesion, right buttock. POSTOPERATIVE DIAGNOSIS: Nonhealing skin lesion, right buttock, stage I pressure sore. PROCEDURE PERFORMED: Excisional skin biopsy, right buttock. PRIMARY SURGEON: Mckenzie Zuniga MD ANESTHESIA: General LMA, local. FLUIDS: 400 mL of crystalloid. ESTIMATED BLOOD LOSS: 2 mL. FINDINGS: 1.5 x 1 x 1 cm skin lesion excision. No margins associated with case. COMPLICATIONS: None. INDICATIONS: The patient is a 64-year-old female who presents with a nonhealing skin lesion. She has tried [id number] steroids, antifungal, and antibiotic creams with no improvement. The decision was made to proceed with a skin biopsy. However, given the location and its tenderness, I was unable to do this in clinic. We made the decision to proceed to the operating room to perform this under anesthesia with local. I explained the procedure, expected perioperative course, and the risks. The patient verbalized understanding and wishes to proceed. PROCEDURE IN DETAIL: The patient was brought into the OR and placed on the OR table in supine position. A time-out was completed verifying the patient's name, age, date of , allergies, and procedure to be performed. General LMA anesthesia was induced. The patient was then placed in left lateral decubitus position, taking care to appropriately pad all bony prominences and secure the patient to the table. When the line inspector and I went to prep and drape the buttock skin, we noticed some redness along the patient's coccyx area. This was nonblanching, consistent with a stage I pressure sore. The buttock was then prepped and draped in usual standard fashion. I inspected the area. The patient had scaly appearing lesions just posterior to the right anoderm along the gluteal crease. I anesthetized an area overlying one of these scaly appearing lesions with 0.5% Marcaine plain. An elliptical incision was made using a 15 blade along the skin lines. I then carried this down to the level of subcutaneous fat. I elevated my ellipse of tissue and excised a rim of subcutaneous fat with the overlying skin. Once this was completely freed from the surrounding tissue, it was placed on the back table. It measured 1.5 x 1 x 1 cm in size. It was sent to pathology, labeled as right buttock skin lesion. Electrocautery was used to achieve hemostasis within the wound. I then closed the wound with a running 3-0 Ethilon suture. A sterile dressing was applied. The patient tolerated the procedure well and was transferred to the PACU in stable condition. All counts were complete and correct at the end of the case. HALEY MAE /[id number]
== END 2020-02-02 12:50 | disposition home or self-care (01) ==
LOC: MW.SDS 09:09
PROVIDERS: ATTEND Surgery
DX: L85.9 Epidermal thickening, unspecified (principal); I10 Essential (primary) hypertension; I48.91 Unspecified atrial fibrillation; J44.9 Chronic obstructive pulmonary disease, unspecified; G47.30 Sleep apnea, unspecified; F42.4 Excoriation (skin-picking) disorder; F17.210 Nicotine dependence, cigarettes, uncomplicated; Z79.899 Other long term (current) drug therapy; Z98.890 Other specified postprocedural states; Z88.2 Allergy status to sulfonamides
CPT/HCPCS: 11402; J2001; J2250; J2704; J3010; J3490; J7120; 00300; A9270-GY

== ENCOUNTER 2020-05-18 08:07 | Day surgery (SDC) | payer BC, MEDICARE ==
[~2020-05-18 08:07] MED LIST changes: -Bupivacaine 0.5% 30 ML SDV ONE; -Sodium Chloride 0.9% 10 ML SDV IV PRN; -Sodium Chloride 0.9% 10 ML Syringe FLUSH PRN; -Sodium Chloride 0.9% 2.5 ML Syringe FLUSH PRN
[2020-05-18] MEDS ORDERED: fentaNYL 100 MCG/2 ML SDV ONE (08:24)
[2020-05-18] MEDS ORDERED: Propofol 200 MG/20 ML SDV ONE (08:24)
--- NOTE | 2020-05-18 09:02 | PCM.PREANE ---
Preanesthetic Assessment - Anesthesia/Transfusion/Family Hx Anesthesia History: Prior Anesthesia Without Reaction Family History of Anesthesia Reaction: No Transfusion History: No Prior Transfusion(s) Intubation History: Unknown - Review of Systems General: No Symptoms Pulmonary: No Symptoms, Shortness of Breath Cardiovascular: No Symptoms, Other Gastrointestinal: No Symptoms Neurological: No Symptoms, Other Other: Reports: None, Anxiety - Physical Assessment NPO Status Date: 05/18/20 NPO Status Time: 00:05 (cx) Vital Signs: Last Vital Signs Temp 97.3 F 05/18/20 08:18 Pulse 94 05/18/20 08:18 Resp 15 05/18/20 08:18 BP 138/66 05/18/20 08:18 Pulse Ox 95 05/18/20 08:18 Height: 5 ft 3 in Weight: 115 lb ASA Class: 3 Mental Status: Alert & Oriented x3 Airway Class: Mallampati = 2 Dentition: Reports: Normal Dentition ROM/Head Extension: Full Lungs: Clear to Auscultation, Normal Respiratory Effort Cardiovascular: Regular Rate, Regular Rhythm - Allergies Allergies/Adverse Reactions: Allergies Allergy/AdvReac Type Severity Reaction Status Date / Time metoclopramide [From Reglan] Allergy "dont take Verified 05/14/20 13:46 due to my tremors" Sulfa (Sulfonamide Allergy lips swell Verified 05/14/20 13:46 Antibiotics) & went numb - Anesthesia Plan Pre-Op Medication Ordered: None - Acknowledgements Anesthesia Type Planned: General Anesthesia Pt an Appropriate Candidate for the Planned Anesthesia: Yes Alternatives and Risks of Anesthesia Discussed w Pt/Guardian: Yes Pt/Guardian Understands and Agrees with Anesthesia Plan: Yes Additional Comments: npo after mn htn afib for 2 years on digoxin stopped her Eliquis 3 days ago, Lovenox Im coverage last dose yesterday morning no mi, cp, chf torticolis hx with tremors RA on daily pred emy hayfever anxiety kyle no cpap tob daily 1/2 ppd etoh none par no questions copd w inhalers no recent new illness PreAnesthesia Questionnaire HEENT History: Reports: Cataract, Impaired Vision, Other (See Below) Other HEENT History: wears glasses Cardiovascular History: Reports: Afib, Hypertension Other Cardiovascular History: states A-Fib has converted but still takes medications Respiratory History: Reports: COPD, Sleep Apnea Gastrointestinal History: Reports: Colon Polyp, GERD Genitourinary History: Reports: None RESEARCH INSTRUCTOR History: Reports: Musculoskeletal History: Reports: Fracture, Neck Pain, Chronic, RA Other Musculoskeletal History: has RA in hands, hx of fx finger, hx of Spasmotic Torticollis Neurological History: Reports: Other (See Below) Other Neuro History: spasmatic torticollis; states head shakes and has tremors (dystonia) Psychiatric History: Reports: None Endocrine/Metabolic History: Reports: None Hematologic History: Reports: None Immunologic History: Reports: Immunosuppression Other Immunologic History: states has MRSA with the infection right buttock open sore Oncologic (Cancer) History: Reports: None Dermatologic History: Reports: Other (See Below) Other Dermatologic History: states has an open sore right buttock - Infectious Disease History Infectious Disease History: Reports: MRSA Other Infectious Disease History: open sore right buttock - Past Surgical History GI Surgical History: Reports: Colonoscopy Female Surgical History: Reports: None, Section - SUBSTANCE USE Tobacco Use Status *Q: Current Every Day Tobacco User Tobacco Use Within Last Twelve Months: Cigarettes - HOME MEDS Home Medications: Home Meds ClonazePAM [KlonoPIN] 0.5 mg PO BEDTIME PRN 09/10/15 [History] Tiotropium Br/Olodaterol HCl [Stiolto Respimat Inhal [place]] 2 puff INH QAM 03/31/18 [History] Apixaban [Eliquis] 5 mg PO BID 10/26/18 [History] Calcium Carbonate [Calcium] 600 mg PO DAILY 10/26/18 [History] Cholecalciferol (Vitamin D3) [Vitamin D3] 1,000 unit PO DAILY 10/26/18 [History] Digoxin 125 mcg PO QAM 10/26/18 [History] Folic Acid 1 mg PO DAILY 10/26/18 [History] Magnesium Oxide 400 mg PO DAILY 10/26/18 [History] Methotrexate 4 tab PO ASDIRECTED 10/26/18 [History] Potassium Chloride [Klor-Con] 20 meq PO DAILY 10/26/18 [History] Verapamil HCl [Verapamil] 120 mg PO TID 10/26/18 [History] predniSONE [Prednisone] 2.5 mg PO PCLUNCH 10/26/18 [History] Albuterol Sulfate [Albuterol Sulfate HFA] 2 puff INH ASDIRECTED PRN 05/14/20 [History] Enoxaparin Sodium [Lovenox] 1 injection SUBCUT ASDIRECTED 05/14/20 [History] Multivit-Minerals/Folic Acid [Multivitamin Gummies] 1 tab.chew CHEW DAILY 05/14/20 [History] Omeprazole 40 mg PO DAILY 05/14/20 [History] Topiramate 25 mg PO BEDTIME 05/14/20 [History] - CURRENT (IN HOUSE) MEDS Current Meds: Current Medications Lactated Ringer's (Ringers, Lactated) 1,000 mls @ 125 mls/hr IV ASDIRECTED [facility] Last Admin: 05/18/20 08:35 Dose: 125 mls/hr Documented by: Discontinued Medications Fentanyl (Fentanyl 100 Mcg/2 Ml Sdv) Confirm Administered Dose 100 mcg .ROUTE .STK-MED ONE Stop: 05/18/20 08:25 Lidocaine HCl (Lidocaine 1% 5 Ml Sdv) Confirm Administered Dose 5 ml .ROUTE .STK-MED ONE Stop: 05/18/20 08:25 Propofol (Propofol 200 Mg/20 Ml Sdv) Confirm Administered Dose 400 mg .ROUTE .STK-MED ONE Stop: 05/18/20 08:25
--- NOTE | 2020-05-18 10:23 | PCM.OPNOTE ---
- General Post-Op/Procedure Note Date of Surgery/Procedure: 05/18/20 Operative Procedure(s): Esophagogastroduodenoscopy with gastric and esophageal biopsies. Colonoscopy with sigmoid and rectal polypectomies. Pre Op Diagnosis: Abdominal bloating with a history of peptic ulcer disease. Rectal bleeding. History of colon polyps. Post-Op Diagnosis: Mild chronic gastritis. Mid to proximal esophagitis, probable thrush. Sigmoid and rectal polyps. Internal hemorrhoids. Anesthesia Technique: MAC (ASA III) Primary Surgeon: Nando Cook Stripper And Opaquer Apprentice: Sharmila Garcia Condition: Good Free Text/Narrative:: DICTATION [id number] CPT CODE [id number]
[2020-05-18] MEDS ORDERED: Lactated Ringers 1,000 ML IV SCH (10:30)
[2020-05-18 10:32] VITALS: PULSE 72
--- NOTE | 2020-05-18 10:33 | PCM.POSTAN ---
POST ANESTHESIA ASSESSMENT - MENTAL STATUS Mental Status: Alert, Oriented - VITAL SIGNS Vital Signs: Last Vital Signs Temp 97.3 F 05/18/20 08:18 Pulse 72 05/18/20 10:31 Resp 18 05/18/20 10:31 BP 135/51 L 05/18/20 10:31 Pulse Ox 92 L 05/18/20 10:31 - RESPIRATORY Respiratory Status: Respiratory Rate WNL, Airway Patent, O2 Saturation Stable - CARDIOVASCULAR CV Status: Pulse Rate WNL, Blood Pressure Stable - GASTROINTESTINAL GI Status: No Symptoms - POST OP HYDRATION Hydration Status: Adequate & Stable
--- NOTE | 2020-05-18 10:34 | PCM48HPAN ---
Post Anesthesia Note - EVALUATION WITHIN 48HRS OF ANESTHETIC Vital Signs in Normal Range: Yes Patient Participated in Evaluation: Yes Respiratory Function Stable: Yes Airway Patent: Yes Cardiovascular Function Stable: Yes Hydration Status Stable: Yes Pain Control Satisfactory: Yes Nausea and Vomiting Control Satisfactory: Yes Mental Status Recovered: Yes Vital Signs: Last Vital Signs Temp 97.3 F 05/18/20 08:18 Pulse 72 05/18/20 10:31 Resp 18 05/18/20 10:31 BP 135/51 L 05/18/20 10:31 Pulse Ox 92 L 05/18/20 10:31
[2020-05-18 10:46] VITALS: BP 138/63
[2020-05-18] MEDS ORDERED: Morphine 10 MG/ML Syringe ONE (12:45)
--- NOTE | 2020-05-18 17:28 | OR ---
SURGEON: Nando Cook M.D. DATE OF PROCEDURE: 05/18/2020 OPERATION PERFORMED: Esophagogastroduodenoscopy with biopsy of the antrum and mid esophagus. PRIMARY SURGEON: Nando Cook M.D. TRANSMISSION SPECIALIST: SOO Sam student. ANESTHESIA: MAC. ASA CLASSIFICATION: III. PREOPERATIVE DIAGNOSES: 1. Abdominal bloating. 2. History of gastric ulcer. POSTOPERATIVE DIAGNOSES: 1. Mild chronic gastritis. 2. 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 DESCRIPTION OF PROCEDURE: The patient was taken to the endoscopy room and positioned on the endoscopy table in the left lateral decubitus position. Time-out was called for appropriate identification of the patient and procedure. Monitored anesthesia care was provided. The bite block was placed between the patient's teeth. The gastroscope was inserted through the bite block into the oropharynx and advanced without difficulty through the esophagus and stomach into the duodenum where examination was now carried out in a retrograde fashion. The duodenum showed no acute inflammatory changes or ulcerations. The stomach did show mild to moderate gastritis. Antral biopsies were obtained to look for the presence of Helicobacter pylori. The gastroscope was then retroflexed to visualize the proximal stomach. No hiatal hernia was noted and there were no acute inflammatory changes proximally. The GE junction was well defined and again showed no acute inflammatory changes. In the mid to proximal esophagus, there was a significant amount of leukoplakic-type material. I attempted to wash this off. It did not wash off and so separate biopsies of this area were taken. Given her steroid use, one possibility was thrush. As the scope was withdrawn, the vocal cords were visualized, noted to move symmetrically. No vocal cord lesions were identified. The gastroscope was then removed with the patient having tolerated this portion of the procedure well. Following colonoscopy, she was taken to recovery room in stable condition. MAGALI / CARMELITA /[id number] TORIBIO
--- NOTE | 2020-05-18 17:42 | OR ---
SURGEON: Nando Cook M.D. DATE OF PROCEDURE: 05/18/2020 OPERATION PERFORMED: Colonoscopy with cold sigmoid and rectal polypectomy. PRIMARY SURGEON: Nando Cook M.D. BALANCE WEIGHER: SOO Sam student. ANESTHESIA: MAC. ASA CLASSIFICATION: III. PREOPERATIVE DIAGNOSES: 1. Rectal bleeding. 2. History of colon polyps. POSTOPERATIVE DIAGNOSIS: Hemorrhoids. DESCRIPTION OF PROCEDURE: With the patient having completed upper GI endoscopy, she was maintained in the left lateral decubitus position. The colonoscope was inserted into the rectum and advanced with moderate difficulty to the cecum. The cecum was identified by internal landmarks and external pressure. The colonoscope was retroflexed to visualize the ascending colon from below, then straightened and slowly withdrawn. The cecum, ascending colon, hepatic flexure, transverse colon, splenic flexure, and descending colon showed no tumors, polyps, diverticula, or angiodysplastic changes. One polyp was encountered in the sigmoid colon, and this was removed with the cold biopsy forceps. The colonoscope was then withdrawn to the rectum. Two more polyps were encountered and removed with the cold biopsy forceps. The colonoscope was then retroflexed to visualize the anal orifice from above. The patient did have acute hemorrhoids that were not actively bleeding. The colonoscope was then straightened, the rectum aspirated, and the colonoscope removed. The patient tolerated the procedure well and was taken to recovery room in satisfactory condition. MAGALI / CARMELITA /[id number] MTDD
== END 2020-05-18 11:15 | disposition home or self-care (01) ==
LOC: MW.SDS 08:07
PROVIDERS: ATTEND Surgery
DX: K29.50 Unspecified chronic gastritis without bleeding (principal); D12.5 Benign neoplasm of sigmoid colon; K62.1 Rectal polyp; K64.8 Other hemorrhoids; K22.8 Other specified diseases of esophagus; K21.9 Gastro-esophageal reflux disease without esophagitis; I48.91 Unspecified atrial fibrillation; G47.33 Obstructive sleep apnea (adult) (pediatric); I10 Essential (primary) hypertension; F17.210 Nicotine dependence, cigarettes, uncomplicated; Z88.2 Allergy status to sulfonamides; Z79.899 Other long term (current) drug therapy; Z87.19 Personal history of other diseases of the digestive system; Z98.890 Other specified postprocedural states
CPT/HCPCS: 43239; 45380; J2704; J3010; J7120; 88305; 88312; J2270

== ENCOUNTER 2020-12-06 11:28 | Observation (INO) | payer BC, MEDICARE, OTHER ==
[2020-12-06] MEDS ORDERED: Sodium Chloride 0.9% 10 ML Syringe FLUSH PRN (11:57)
[2020-12-06] MEDS ORDERED: Sodium Chloride 0.9% 2.5 ML Syringe FLUSH PRN (11:57)
[2020-12-06] MEDS ORDERED: Albuterol/Ipratropium 3.0-0.5 MG/3 ML Neb Soln NEB ONE (12:05)
[2020-12-06] MEDS ORDERED: methylPREDNISolone Sodium Succinate 125 MG/2 ML SDV IVPUSH ONE (12:05)
--- NOTE | 2020-12-06 12:25 | PCM.EKG ---
#1 Interpretation EKG Interpretation Comments: EKG done 12/06/2020 at 12:17 PM shows sinus rhythm heart rate 96 NH 168 Covert repolarization abnormalities consistent with possible ischemia.
--- NOTE | 2020-12-06 12:36 | EDM.PDOC ---
ED HPI GENERAL MEDICAL PROBLEM - General Chief Complaint: Respiratory Problem Stated Complaint: EMS ARRIVAL Time Seen by Provider: 12/06/20 11:28 Source of Information: Reports: Patient History Limitations: Reports: No Limitations - History of Present Illness INITIAL COMMENTS - FREE TEXT/NARRATIVE: HISTORY AND PHYSICAL: History of present illness: Patient is a 65-year-old female, with a history of atrial fibrillation on Eliquis, hypertension, COPD, GERD, RA on methotrexate, who presents emergency room today via EMS with concern of shortness of breath. Patient states that she has been feeling more short of breath over the past 3 to 4 days but states that today, felt like she was being smothered and could not get a deep breath in. Patient states she does have COPD and spasmatic torticollis and also has rheumatoid arthritis in the process of possibly being diagnosed with lupus pending skin biopsy from dermatology and lab work, on methotrexate so immune compromised. Patient states other than the shortness of breath, she has felt fine and has no other symptoms or concerns. Patient states that the ambulance did give her an albuterol nebulizer on scene which she states does improve her shortness of breath. Patient denies any falls or injuries. Patient denies fever, chills, chest pain, shortness of breath, or cough. Denies headache, neck stiff ness, change in vision, syncope, or near syncope. Denies nausea, vomiting, abdominal pain, diarrhea, constipation, or dysuria. Has not noted any blood in urine or stool. Patient has been eating and drinking appropriately. Review of systems: As per history of present illness and below otherwise all systems reviewed and negative. Past medical history: As per history of present illness and as reviewed below otherwise noncontributory. Surgical history: As per history of present illness and as reviewed below otherwise noncontributory. Social history: See social history for further information Family history: As per history of present illness and as reviewed below otherwise noncontributory. Physical exam: General: Patient is alert, oriented, and in no acute distress. Patient laying comfortably on exam table. Patient is mildly tachycardic 106 on exam, otherwise vitally stable and reviewed by me. HEENT: Atraumatic, normocephalic, pupils equal and reactive bilaterally, negative for conjunctival pallor or scleral icterus, mucous membranes moist, TMs normal bilaterally, throat clear, neck supple, nontender, trachea midline. No drooling or trismus noted. No meningeal signs. No hot potato voice noted. Lungs: Clear to auscultation, breath sounds equal bilaterally, chest nontender. Heart: S1S2, regular rate and rhythm without overt murmur Abdomen: Soft, nondistended, nontender. Negative for masses or hepatosplenomegaly. Negative for costovertebral tenderness. Pelvis: Stable nontender. Genitourinary: Hemoccult positive. No gema blood. Patient does have some dark brown stool on exam. Rectal tone intact. No obvious hemorrhoids, lesions, masses. Rectal: Deferred. Skin: Intact, warm, dry. No lesions or rashes noted. Extremities: Patient does have noticeable head and right arm tremor akathisia (patient states is baseline spasmatic torticollis and not new), Otherwise, atraumatic, negative for cords or calf pain. Neurovascular unremarkable. Neuro: Awake, alert, oriented. Cranial nerves II through XII unremarkable. Cerebellum unremarkable. Motor and sensory unremarkable throughout. Exam nonfocal. Notes: Patient is a 65-year-old female, with a significant medical history for A. fib o n Eliquis, hypertension, COPD, GERD, RA on methotrexate, and spasmatic torticollis, who presents emergency room today with concern of shortness of breath worsening over the past 3 to 4 days. Upon arrival to the ED, patient is vitally stable, mildly tachycardic 106 on exam, otherwise well-appearing. Patient is currently on 2 L nasal cannula per EMS and satting approximately 94 to 95% and breathing comfortably. Given patient does have underlying COPD, will give DuoNeb at this time, steroid dose while awaiting diagnostic completion. See Dr. Catalan's dictation for specific EKG interpretation. However, normal sinus rhythm with concern of possible global ischemia, however, EKG is limited due to patient's baseline akathisia. CBC is notable for a anemia with a hemoglobin of 9.1, hematocrit of 26.8, and red blood cells of 2.86. Otherwise mild derangements of CBC unremarkable. I did go ask patient about any possible source of bleeding, she states that she has had darker stools but has not seen any black stools or gema blood in her stools. Hemoccult guaiac positive on exam with dark stool noted without melena or bright red blood. No obvious hemorrhoids or lesions. We will also obtain a repeat H&H time and type and screen. Repeat H&H does show a decrease from 9.1-8.3 hemoglobin and 26.8-24.7 hematocrit. VBG shows a pH of 7.46. Chemistry does show mild hyponatremia at 131, hypochloremia at 95. Creatinine and BUN are mildly elevated at 1.1 and 20 respectively. Opponent negative. Lipase within normal limits. Urinalysis clear. Influenza and Covid negative. Blood type a positive. Angiography of the chest shows calcified torturous and ecstatic thoracic and proximal abdominal aorta. No thoracic aortic dissection. No pulmonary emboli identified. Small peripheral branches of the lung bases suboptimally up specified. Minor curve your linear fibrosis or atelectasis post area medial lung base and lingula of left upper lobe. Cardiomegaly without congestive heart failure. Dense calcifications in the coronary artery distribution. Following DuoNeb and Solu-Medrol, patient expresses improvement of her shortness of breath today in the emergency room and remains vitally stable. However, given patient's dyspnea with decrease in hemoglobin and hematocrit, despite withholding fluids with Hemoccult positive, I did call and speak to the hospitalist on-call, Dr. Ochoa, and thoroughly discussed patient's case. Will admit to observation to Dr. Ochoa. Voices understanding and is agreeable to plan of care. Denies any further questions or concerns at this time. Patient was transferred to the hospital floor under Dr. Ochoa's care in stable condition. Diagnostics: EKG, CBC, CMP, UA, Hemoccult, Trop, Ang CT Chest, Type and Screen, repeat H&H Therapeutics: Duoneb, Solumedrol, Protonix Impression: COPD exacerbation Gastrointestinal bleed with guaiac positive stool Anemia Plan: Admit to observation to Dr. Ochoa on telemetry Definitive disposition and diagnosis as appropriate pending reevaluation and review of above. Treatments CAPACITOR INSPECTOR: Reports: Other (see below) Other Treatments CAPACITOR INSPECTOR: duoneb given by EMS - Related Data Allergies Allergy/AdvReac Type Severity Reaction Status Date / Time metoclopramide [From Reglan] Allergy "dont take Verified 12/06/20 11:55 due to my tremors" Sulfa (Sulfonamide Allergy lips swell Verified 12/06/20 11:55 Antibiotics) & went numb Home Meds: Home Meds ClonazePAM [KlonoPIN] 0.5 mg PO BEDTIME PRN 09/10/15 [History] Tiotropium Br/Olodaterol HCl [Stiolto Respimat Inhal [place]] 2 puff INH QAM 03/31/18 [History] Apixaban [Eliquis] 5 mg PO BID 10/26/18 [History] Calcium Carbonate [Calcium] 600 mg PO DAILY 10/26/18 [History] Cholecalciferol (Vitamin D3) [Vitamin D3] 1,000 unit PO DAILY 10/26/18 [History] Digoxin 125 mcg PO QAM 10/26/18 [History] Folic Acid 1 mg PO DAILY 10/26/18 [History] Magnesium Oxide 400 mg PO DAILY 10/26/18 [History] Methotrexate 4 tab PO ASDIRECTED 10/26/18 [History] Potassium Chloride [Klor-Con] 20 meq PO DAILY 10/26/18 [History] Verapamil HCl [Verapamil] 120 mg PO TID 10/26/18 [History] predniSONE [Prednisone] 2.5 mg PO PCLUNCH 10/26/18 [History] Albuterol Sulfate [Albuterol Sulfate HFA] 2 puff INH ASDIRECTED PRN 05/14/20 [History] Enoxaparin Sodium [Lovenox] 1 injection SUBCUT ASDIRECTED 05/14/20 [History] Multivit-Minerals/Folic Acid [Multivitamin Gummies] 1 tab.chew CHEW DAILY 05/14/20 [History] Omeprazole 40 mg PO DAILY 05/14/20 [History] Topiramate 25 mg PO BEDTIME 05/14/20 [History] Past Medical History HEENT History: Reports: Cataract, Impaired Vision, Other (See Below) Other HEENT History: wears glasses Cardiovascular History: Reports: Afib, Hypertension Other Cardiovascular History: states A-Fib has converted but still takes medications Respiratory History: Reports: COPD, Sleep Apnea Gastrointestinal History: Reports: Colon Polyp, GERD Genitourinary History: Reports: None 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: Musculoskeletal History: Reports: Fracture, Neck Pain, Chronic, RA Other Musculoskeletal History: has RA in hands, hx of fx finger, hx of Spasmotic Torticollis Neurological History: Reports: Other (See Below) Other Neuro History: spasmatic torticollis; states head shakes and has tremors (dystonia) Psychiatric History: Reports: None Endocrine/Metabolic History: Reports: None Hematologic History: Reports: None Immunologic History: Reports: Immunosuppression Other Immunologic History: states has MRSA with the infection right buttock open sore Oncologic (Cancer) History: Reports: None Dermatologic History: Reports: Other (See Below) Other Dermatologic History: states has an open sore right buttock - Infectious Disease History Infectious Disease History: Reports: Chicken Pox, MRSA, Mumps Other Infectious Disease History: open sore right buttock - Past Surgical History Head Surgeries/Procedures: Reports: None HEENT Surgical History: Reports: Tonsillectomy Cardiovascular Surgical History: Reports: None Respiratory Surgical History: Reports: None GI Surgical History: Reports: Colonoscopy Female Surgical History: Reports: Section Other Female Surgeries/Procedures: x2 Endocrine Surgical History: Reports: None Neurological Surgical History: Reports: Other (See Below) Other Neurological Surgeries/Procedures: hx of Cervical Spine Nerve Ablation for neck spasms (20 years ago) Musculoskeletal Surgical History: Reports: None Oncologic Surgical History: Reports: None Dermatological Surgical History: Reports: Other (See Below) Social & Family History - Family History Family Medical History: No Pertinent Family History - Tobacco Use Tobacco Use Status *Q: Current Every Day Tobacco User Years of Tobacco use: 40 Packs/Tins Daily: 0.5 - Caffeine Use Caffeine Use: Reports: None - Recreational Drug Use Recreational Drug Use: No ED ROS GENERAL - Review of Systems Review Of Systems: Comprehensive ROS is negative, except as noted in HPI. ED EXAM, GENERAL - Physical Exam Exam: See Below (See dictation) Course - Vital Signs Last Recorded V/S: Last Vital Signs Temp 98.5 F 12/06/20 11:50 Pulse 95 12/06/20 16:53 Resp 20 12/06/20 11:50 BP 130/63 12/06/20 16:53 Pulse Ox 97 12/06/20 16:53 - Orders/Labs/Meds Orders: Active Orders 24 hr Category Date Time Status Admission Status [Patient Status] [ADT] Stat ADT 12/06/20 16:35 Active RT Aerosol Therapy [RC] ASDIRECTED Care 12/06/20 12:05 Active Sodium Chloride 0.9% [Saline Flush] Med 12/06/20 11:57 Active 10 ml FLUSH ASDIRECTED PRN Sodium Chloride 0.9% [Saline Flush] Med 12/06/20 11:57 Active 2.5 ml FLUSH ASDIRECTED PRN Saline Lock Insert [OM.PC] Stat Oth 12/06/20 11:57 Ordered Medication Orders Sodium Chloride (Sodium Chloride 0.9% 10 Ml Syringe) 10 ml FLUSH ASDIRECTED PRN PRN Reason: Keep Vein Open Last Admin: 12/06/20 12:20 Dose: 10 ml Documented by: IVON Sodium Chloride (Sodium Chloride 0.9% 2.5 Ml Syringe) 2.5 ml FLUSH ASDIRECTED PRN PRN Reason: Keep Vein Open Last Admin: 12/06/20 12:19 Dose: 2.5 ml Documented by: IVON Labs: Laboratory Tests 12/06/20 12/06/20 12/06/20 Range/Units 12:12 12:12 12:12 WBC 6.44 (4.0-11.0) K/uL RBC 2.86 L (4.30-5.90) M/uL Hgb 9.1 L (12.0-16.0) g/dL Hct 26.8 L (36.0-46.0) % MCV 93.7 (80.0-98.0) fL MCH 31.8 (27.0-32.0) pg MCHC 34.0 (31.0-37.0) g/dL RDW Std Deviation 49.9 (28.0-62.0) fl RDW Coeff of Lisa 15 (11.0-15.0) % Plt Count 302 (150-400) K/uL MPV 8.80 (7.40-12.00) fL Neut % (Auto) 90.7 H (48.0-80.0) % Lymph % (Auto) 4.8 L (16.0-40.0) % Elbert % (Auto) 4.0 (0.0-15.0) % Eos % (Auto) 0.3 (0.0-7.0) % Baso % (Auto) 0.2 (0.0-1.5) % Neut # (Auto) 5.8 H (1.4-5.7) K/uL Lymph # (Auto) 0.3 L (0.6-2.4) K/uL Elbert # (Auto) 0.3 (0.0-0.8) K/uL Eos # (Auto) 0.0 (0.0-0.7) K/uL Baso # (Auto) 0.0 (0.0-0.1) K/uL Nucleated RBC % 0.0 /100WBC Nucleated RBCs # 0 K/uL VBG pH (7.31-7.41) VBG pCO2 (41-51) mmHG VBG pO2 mmHG VBG HCO3 (23-28) mEq/L VBG Total CO2 (24-29) mmol/L VBG Base Excess (-2.0-3.0) Sodium 131 L (136-145) mmol/L Potassium 4.1 (3.5-5.1) mmol/L Chloride 95 L (98-107) mmol/L Carbon Dioxide 29.6 (21.0-32.0) mmol/L BUN 20 H (7.0-18.0) mg/dL Creatinine 1.1 H (0.6-1.0) mg/dL Est Cr Clr Drug Dosing 41.99 mL/min Estimated GFR (MDRD) 49.8 ml/min Glucose 109 H (74-106) mg/dL Calcium 6.7 L (8.5-10.1) mg/dL Total Bilirubin 0.3 (0.2-1.0) mg/dL AST 29 (15-37) IU/L ALT 23 (14-63) IU/L Alkaline Phosphatase 62 (46-116) U/L Troponin I < 0.050 (0.000-0.056) ng/mL Total Protein 4.1 L (6.4-8.2) g/dL Albumin 1.8 L (3.4-5.0) g/dL Globulin 2.3 L (2.6-4.0) g/dL Albumin/Globulin Ratio 0.8 L (0.9-1.6) Lipase 139 (73-393) U/L Urine Color Urine Appearance Urine pH (5.0-8.0) Ur Specific [place] (1.001-1.035) Urine Protein (NEGATIVE) mg/dL Urine Glucose (UA) (NEGATIVE) mg/dL Urine Ketones (NEGATIVE) mg/dL Urine Occult Blood (NEGATIVE) Urine Nitrite (NEGATIVE) Urine Bilirubin (NEGATIVE) Urine Urobilinogen (<2.0) EU/dL Ur Leukocyte Esterase (NEGATIVE) Influenza Type A RNA NEGATIVE (NEGATIVE) Influenza Type B RNA NEGATIVE (NEGATIVE) SARS-CoV-2 RNA (CRUZ) NEGATIVE (NEGATIVE) Blood Type Antibody Screen 12/06/20 12/06/20 12/06/20 Range/Units 12:23 12:41 14:36 WBC (4.0-11.0) K/uL RBC (4.30-5.90) M/uL Hgb 8.3 L (12.0-16.0) g/dL Hct 24.7 L (36.0-46.0) % MCV (80.0-98.0) fL MCH (27.0-32.0) pg MCHC (31.0-37.0) g/dL RDW Std Deviation (28.0-62.0) fl RDW Coeff of Lisa (11.0-15.0) % Plt Count (150-400) K/uL MPV (7.40-12.00) fL Neut % (Auto) (48.0-80.0) % Lymph % (Auto) (16.0-40.0) % Elbert % (Auto) (0.0-15.0) % Eos % (Auto) (0.0-7.0) % Baso % (Auto) (0.0-1.5) % Neut # (Auto) (1.4-5.7) K/uL Lymph # (Auto) (0.6-2.4) K/uL Elbert # (Auto) (0.0-0.8) K/uL Eos # (Auto) (0.0-0.7) K/uL Baso # (Auto) (0.0-0.1) K/uL Nucleated RBC % /100WBC Nucleated RBCs # K/uL VBG pH (7.31-7.41) VBG pCO2 (41-51) mmHG VBG pO2 mmHG VBG HCO3 (23-28) mEq/L VBG Total CO2 (24-29) mmol/L VBG Base Excess (-2.0-3.0) Sodium (136-145) mmol/L Potassium (3.5-5.1) mmol/L Chloride (98-107) mmol/L Carbon Dioxide (21.0-32.0) mmol/L BUN (7.0-18.0) mg/dL Creatinine (0.6-1.0) mg/dL Est Cr Clr Drug Dosing mL/min Estimated GFR (MDRD) ml/min Glucose (74-106) mg/dL Calcium (8.5-10.1) mg/dL Total Bilirubin (0.2-1.0) mg/dL AST (15-37) IU/L ALT (14-63) IU/L Alkaline Phosphatase (46-116) U/L Troponin I (0.000-0.056) ng/mL Total Protein (6.4-8.2) g/dL Albumin (3.4-5.0) g/dL Globulin (2.6-4.0) g/dL Albumin/Globulin Ratio (0.9-1.6) Lipase (73-393) U/L Urine Color YELLOW Urine Appearance CLEAR Urine pH 6.5 (5.0-8.0) Ur Specific [place] 1.010 (1.001-1.035) Urine Protein NEGATIVE (NEGATIVE) mg/dL Urine Glucose (UA) NEGATIVE (NEGATIVE) mg/dL Urine Ketones NEGATIVE (NEGATIVE) mg/dL Urine Occult Blood NEGATIVE (NEGATIVE) Urine Nitrite NEGATIVE (NEGATIVE) Urine Bilirubin NEGATIVE (NEGATIVE) Urine Urobilinogen 0.2 (<2.0) EU/dL Ur Leukocyte Esterase NEGATIVE (NEGATIVE) Influenza Type A RNA (NEGATIVE) Influenza Type B RNA (NEGATIVE) SARS-CoV-2 RNA (CRUZ) (NEGATIVE) Blood Type A POSITIVE Antibody Screen NEGATIVE 12/06/20 Range/Units 14:36 WBC (4.0-11.0) K/uL RBC (4.30-5.90) M/uL Hgb (12.0-16.0) g/dL Hct (36.0-46.0) % MCV (80.0-98.0) fL MCH (27.0-32.0) pg MCHC (31.0-37.0) g/dL RDW Std Deviation (28.0-62.0) fl RDW Coeff of Lisa (11.0-15.0) % Plt Count (150-400) K/uL MPV (7.40-12.00) fL Neut % (Auto) (48.0-80.0) % Lymph % (Auto) (16.0-40.0) % Elbert % (Auto) (0.0-15.0) % Eos % (Auto) (0.0-7.0) % Baso % (Auto) (0.0-1.5) % Neut # (Auto) (1.4-5.7) K/uL Lymph # (Auto) (0.6-2.4) K/uL Elbert # (Auto) (0.0-0.8) K/uL Eos # (Auto) (0.0-0.7) K/uL Baso # (Auto) (0.0-0.1) K/uL Nucleated RBC % /100WBC Nucleated RBCs # K/uL VBG pH 7.46 H (7.31-7.41) VBG pCO2 42 (41-51) mmHG VBG pO2 < 30 mmHG VBG HCO3 30 H (23-28) mEq/L VBG Total CO2 29 (24-29) mmol/L VBG Base Excess 5.4 H (-2.0-3.0) Sodium (136-145) mmol/L Potassium (3.5-5.1) mmol/L Chloride (98-107) mmol/L Carbon Dioxide (21.0-32.0) mmol/L BUN (7.0-18.0) mg/dL Creatinine (0.6-1.0) mg/dL Est Cr Clr Drug Dosing mL/min Estimated GFR (MDRD) ml/min Glucose (74-106) mg/dL Calcium (8.5-10.1) mg/dL Total Bilirubin (0.2-1.0) mg/dL AST (15-37) IU/L ALT (14-63) IU/L Alkaline Phosphatase (46-116) U/L Troponin I (0.000-0.056) ng/mL Total Protein (6.4-8.2) g/dL Albumin (3.4-5.0) g/dL Globulin (2.6-4.0) g/dL Albumin/Globulin Ratio (0.9-1.6) Lipase (73-393) U/L Urine Color Urine Appearance Urine pH (5.0-8.0) Ur Specific [place] (1.001-1.035) Urine Protein (NEGATIVE) mg/dL Urine Glucose (UA) (NEGATIVE) mg/dL Urine Ketones (NEGATIVE) mg/dL Urine Occult Blood (NEGATIVE) Urine Nitrite (NEGATIVE) Urine Bilirubin (NEGATIVE) Urine Urobilinogen (<2.0) EU/dL Ur Leukocyte Esterase (NEGATIVE) Influenza Type A RNA (NEGATIVE) Influenza Type B RNA (NEGATIVE) SARS-CoV-2 RNA (CRUZ) (NEGATIVE) Blood Type Antibody Screen Meds: Medications Generic Name Dose Route Start Last Admin Trade Name Freq PRN Reason Stop Dose Admin Sodium Chloride 10 ml 12/06/20 11:57 12/06/20 12:20 Sodium Chloride 0.9% 10 Ml Syringe FLUSH 10 ml ASDIRECTED PRN Administration Keep Vein Open Sodium Chloride 2.5 ml 12/06/20 11:57 12/06/20 12:19 Sodium Chloride 0.9% 2.5 Ml Syringe FLUSH 2.5 ml ASDIRECTED PRN Administration Keep Vein Open Discontinued Medications Generic Name Dose Route Start Last Admin Trade Name Freq PRN Reason Stop Dose Admin Albuterol/Ipratropium 3 ml 12/06/20 12:05 12/06/20 12:19 Albuterol/Ipratropium 3.0-0.5 Mg/3 Ml Neb Soln NEB 12/06/20 12:06 3 ml ONETIME ONE Administration Pantoprazole Sodium 80 mg/ 20 mls @ 420 mls/hr 12/06/20 15:40 12/06/20 16:00 Sodium Chloride IVPUSH 12/06/20 15:42 420 mls/hr ONETIME ONE Administration Iopamidol 87 ml 12/06/20 14:53 12/06/20 14:54 Iopamidol 755 Mg/Ml 500 Ml Multipack Bottle IVPUSH 12/06/20 14:54 87 ml ONETIME STA Administration Methylprednisolone Sodium Succinate 125 mg 12/06/20 12:05 12/06/20 12:19 Methylprednisolone Sodium Succinate 125 Mg/2 Ml Sdv IVPUSH 12/06/20 12:06 125 mg ONETIME ONE Administration Departure - Departure Time of Disposition: 16:58 Disposition: Refer to Observation Clinical Impression: Dyspnea, Guaiac positive stools, GI bleeding, Anticoagulant long-term use, COPD exacerbation - Discharge Information Sepsis Event Note (ED) - Evaluation Sepsis Screening Result: No Definite Risk - Focused Exam Vital Signs: Vital Signs Temp Pulse Resp BP Pulse Ox 12/06/20 16:23 95 123/57 L 96 12/06/20 15:53 93 133/61 95 12/06/20 15:23 96 122/57 L 95 12/06/20 14:53 93 116/48 L 92 L 12/06/20 13:53 97 107/60 93 L 12/06/20 12:53 100 118/57 L 92 L 12/06/20 11:54 114 H 125/54 L 93 L 12/06/20 11:50 98.5 F 106 H 20 125/54 L 94 L - My Orders Last 24 Hours: My Active Orders 12/06/20 11:57 Sodium Chloride 0.9% [Saline Flush] 10 ml FLUSH ASDIRECTED PRN Sodium Chloride 0.9% [Saline Flush] 2.5 ml FLUSH ASDIRECTED PRN Saline Lock Insert [OM.PC] Stat 12/06/20 12:05 RT Aerosol Therapy [RC] ASDIRECTED 12/06/20 16:35 Admission Status [Patient Status] [ADT] Stat - Assessment/Plan Last 24 Hours: My Active Orders 12/06/20 11:57 Sodium Chloride 0.9% [Saline Flush] 10 ml FLUSH ASDIRECTED PRN Sodium Chloride 0.9% [Saline Flush] 2.5 ml FLUSH ASDIRECTED PRN Saline Lock Insert [OM.PC] Stat 12/06/20 12:05 RT Aerosol Therapy [RC] ASDIRECTED 12/06/20 16:35 Admission Status [Patient Status] [ADT] Stat
[2020-12-06 12:58] LABS: CORONAVIRUS COVID-19 NAA NEGATIVE (NEGATIVE); INFLUENZA A NAA NEGATIVE (NEGATIVE); INFLUENZA B NAA NEGATIVE (NEGATIVE)
[2020-12-06 13:05] LABS: BLOOD UREA NITROGEN,BUN 20 mg/dL (7.0-18.0); CARBON DIOXIDE,CO2 29.6 mmol/L (21.0-32.0); CHLORIDE,CL 95 mmol/L (98-107); GLUCOSE RANDOM 109 mg/dL (74-106); LIPASE 139 U/L (73-393); POTASSIUM,K 4.1 mmol/L (3.5-5.1); SODIUM,NA 131 mmol/L (136-145)
[2020-12-06] MEDS ORDERED: Iopamidol 755 MG/ML 500 ML Multipack Bottle IVPUSH STA (14:53)
--- NOTE | 2020-12-06 15:19 | CT ---
INDICATION: Chest pain. TECHNIQUE: Contrast-enhanced chest CT performed using the pulmonary embolism protocol. 87 cc nonionic Isovue-370 administered. COMPARISON: Correlation is made with a two-view chest x-ray November 05, 2020. Correlation is made with a CT angiogram of the chest March 31, 2018. FINDINGS: There is adequate opacification of the pulmonary arterial tree except for small peripheral branches at the lung bases. No acute or chronic pulmonary emboli are identified. Tortuous and ectatic thoracic and proximal abdominal aorta with the descending thoracic aorta measuring up to nearly 4 cm in maximal dimension. Scattered vascular calcification within the thoracic aorta. Dense coronary artery calcifications and/or coronary artery stents compatible with coronary arterial disease. Cardiac enlargement without overt failure. Trace left hemithoracic pleural thickening unchanged. Respiratory motion artifact degrades image quality. Minor curvilinear fibrosis or atelectasis posteromedial lung bases and minor curvilinear fibrosis or atelectasis lingular left upper lobe. No pneumothorax. Minimal debris within the upper trachea, image 13 series 10. The included breasts are unremarkable. No thoracic lymphadenopathy. Thoracolumbar scoliotic curvature with the thoracic curve predominantly convex towards the left with the lumbar curve predominantly convex towards the right. Tiny bone island within 1 or 2 thoracic vertebral bodies. The upper abdomen is unremarkable IMPRESSION: 1. Calcified tortuous and ectatic thoracic and proximal abdominal aorta. No thoracic aortic dissection. 2. No pulmonary emboli identified. Small peripheral branches at the lung bases are suboptimally opacified. 3. Minor curvilinear fibrosis or atelectasis posteromedial lung bases and lingular left upper lobe. 4. Cardiomegaly without congestive heart failure. Dense calcifications in the coronary artery distribution. Please note that all CT scans at this facility use dose modulation, iterative reconstruction, and/or weight-based dosing when appropriate to reduce radiation dose to as low as reasonably achievable. Dictated by Nicolás Madison MD @ 12/06/2020 3:17:38 PM (Electronically Signed)
[2020-12-06] MEDS ORDERED: Pantoprazole 80 MG in Sodium Chloride 0.9% 20 ML IVPUSH ONE (15:40)
--- NOTE | 2020-12-06 21:07 | PCM.HP.2 ---
H&P History of Present Illness - General Date of Service: 12/06/20 Admit Problem/Dx: Admission Diagnosis/Problem Admission Diagnosis/Problem GI bleed not requiring more than 4 units of blood in 24 hours, ICU, or surgery - History of Present Illness Initial Comments - Free Text/Narative: 65 yo female with pmh of Rheumatoid arthritis, COPD, spastic torticollis, atrial fibrillation on Eliquis who presents to the ED with complaints of shortness of breath. PAtient reports she felt like she was suffocating. She reports she has been short of breath for the past four days. She denies any chest pain, fevers, or cough. She does report dark stools, Her last EGD, colonoscopy was six months ago which did not reveal any signs of bleeding. IN the ED she was given soumedrol and duonebs with improvement in her shortness of breath. She was noted to be satting 95% on room air with HR in the 100s in normal sinus. Hgb was 9.6, and two hour repeat it was 8.3. Last month her Hgb was 11.8. CT chest was negative for PE, atelectasis/fibrosis of posterior medial lungs, cardiomegaly with no CHF. Abdomen Pain Score (Numeric/FACES): 3 - Related Data Allergies/Adverse Reactions: Allergies Allergy/AdvReac Type Severity Reaction Status Date / Time metoclopramide [From Reglan] Allergy "dont take Verified 12/06/20 11:55 due to my tremors" Sulfa (Sulfonamide Allergy lips swell Verified 12/06/20 11:55 Antibiotics) & went numb Home Medications: Home Meds Tiotropium Br/Olodaterol HCl [Stiolto Respimat Inhal [place]] 2 puff INH QAM 03/31/18 [History] Apixaban [Eliquis] 5 mg PO BID 10/26/18 [History] Digoxin 125 mcg PO QAM 10/26/18 [History] Folic Acid 1 mg PO DAILY 10/26/18 [History] Methotrexate 10 mg PO WEEKLY 10/26/18 [History] Potassium Chloride [Klor-Con] 20 meq PO DAILY 10/26/18 [History] Verapamil HCl [Verapamil] 120 mg PO TID 10/26/18 [History] predniSONE [Prednisone] 5 mg PO BID 10/26/18 [History] Omeprazole 20 mg PO DAILY 05/14/20 [History] ClonazePAM [KlonoPIN] 0.5 mg PO TID PRN 12/06/20 [History] Furosemide 20 mg PO DAILY 12/06/20 [History] Mupirocin Oint [Bactroban Oint] 22 gm TP BID 12/06/20 [History] hydrOXYzine HCL [Hydroxyzine HCl] 25 mg PO QID PRN 12/06/20 [History] Past Medical History HEENT History: Reports: Cataract, Impaired Vision, Other (See Below) Other HEENT History: wears glasses Cardiovascular History: Reports: Afib, Hypertension Other Cardiovascular History: states A-Fib has converted but still takes medications Respiratory History: Reports: COPD Gastrointestinal History: Reports: Colon Polyp, GERD, Other (See Below) Other Gastrointestinal History: Ulcerated colon at age 8, patietn states was hospitalized Genitourinary History: Reports: None 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: Musculoskeletal History: Reports: Fracture, Neck Pain, Chronic, RA Other Musculoskeletal History: has RA in hands, hx of fx finger, hx of Spasmotic Torticollis Neurological History: Reports: Other (See Below) Other Neuro History: spasmatic torticollis; states head shakes and has tremors (dystonia) Psychiatric History: Reports: None Endocrine/Metabolic History: Reports: None Hematologic History: Reports: None Immunologic History: Reports: Immunosuppression Other Immunologic History: states has MRSA with the infection right buttock open sore Oncologic (Cancer) History: Reports: None Dermatologic History: Reports: Other (See Below) Other Dermatologic History: states has a scabbed sore to right buttock - Infectious Disease History Infectious Disease History: Reports: Chicken Pox, MRSA, Mumps Other Infectious Disease History: open sore right buttock - Past Surgical History Head Surgeries/Procedures: Reports: None HEENT Surgical History: Reports: Cataract Surgery, Tonsillectomy Other HEENT Surgeries/Procedures: Catarct surgery in 2019 Cardiovascular Surgical History: Reports: None Respiratory Surgical History: Reports: None GI Surgical History: Reports: Colonoscopy Female Surgical History: Reports: Section Other Female Surgeries/Procedures: x2 Endocrine Surgical History: Reports: None Neurological Surgical History: Reports: Other (See Below) Other Neurological Surgeries/Procedures: hx of Cervical Spine Nerve Ablation for neck spasms (20 years ago), Selective denervation Musculoskeletal Surgical History: Reports: None Oncologic Surgical History: Reports: None Dermatological Surgical History: Reports: Other (See Below) Social & Family History - Family History Family Medical History: No Pertinent Family History - Tobacco Use Tobacco Use Status *Q: Current Every Day Tobacco User Years of Tobacco use: 45 Packs/Tins Daily: 0.5 - Caffeine Use Caffeine Use: Reports: Soda Caffeine Use Comment: Rarely drinks soda, once per month. - Recreational Drug Use Recreational Drug Use: No H&P Review of Systems - Review of Systems: Review Of Systems: Comprehensive ROS is negative, except as noted in HPI. Exam - Exam Exam: See Below - Vital Signs Vital Signs: Last Vital Signs Temp 37.2 C 12/06/20 17:15 Pulse 104 H 12/06/20 17:15 Resp 14 12/06/20 17:15 BP 116/73 12/06/20 17:15 Pulse Ox 96 12/06/20 17:15 Weight: 46.7 kg - Exam General: Alert, Oriented HEENT: Mucosa Moist & [place] Lungs: Clear to Auscultation, Normal Respiratory Effort Cardiovascular: Regular Rate, Regular Rhythm GI/Abdominal Exam: Normal Bowel Sounds, Soft, Non-Tender Extremities: Non-Tender, No Pedal Edema Skin: Warm, Dry, Intact Neurological: Cranial Nerves Intact - Patient Data Lab Results Last 24 hrs: Laboratory Results - last 24 hr 12/06/20 12/06/20 12/06/20 Range/Units 12:12 12:12 12:12 WBC 6.44 (4.0-11.0) K/uL RBC 2.86 L (4.30-5.90) M/uL Hgb 9.1 L (12.0-16.0) g/dL Hct 26.8 L (36.0-46.0) % MCV 93.7 (80.0-98.0) fL MCH 31.8 (27.0-32.0) pg MCHC 34.0 (31.0-37.0) g/dL RDW Std Deviation 49.9 (28.0-62.0) fl RDW Coeff of Lisa 15 (11.0-15.0) % Plt Count 302 (150-400) K/uL MPV 8.80 (7.40-12.00) fL Neut % (Auto) 90.7 H (48.0-80.0) % Lymph % (Auto) 4.8 L (16.0-40.0) % Williams % (Auto) 4.0 (0.0-15.0) % Eos % (Auto) 0.3 (0.0-7.0) % Baso % (Auto) 0.2 (0.0-1.5) % Neut # (Auto) 5.8 H (1.4-5.7) K/uL Lymph # (Auto) 0.3 L (0.6-2.4) K/uL [place] # (Auto) 0.3 (0.0-0.8) K/uL Eos # (Auto) 0.0 (0.0-0.7) K/uL Baso # (Auto) 0.0 (0.0-0.1) K/uL Nucleated RBC % 0.0 /100WBC Nucleated RBCs # 0 K/uL VBG pH (7.31-7.41) VBG pCO2 (41-51) mmHG VBG pO2 mmHG VBG HCO3 (23-28) mEq/L VBG Total CO2 (24-29) mmol/L VBG Base Excess (-2.0-3.0) Sodium 131 L (136-145) mmol/L Potassium 4.1 (3.5-5.1) mmol/L Chloride 95 L (98-107) mmol/L Carbon Dioxide 29.6 (21.0-32.0) mmol/L BUN 20 H (7.0-18.0) mg/dL Creatinine 1.1 H (0.6-1.0) mg/dL Est Cr Clr Drug Dosing 41.99 mL/min Estimated GFR (MDRD) 49.8 ml/min Glucose 109 H (74-106) mg/dL Calcium 6.7 L (8.5-10.1) mg/dL Total Bilirubin 0.3 (0.2-1.0) mg/dL AST 29 (15-37) IU/L ALT 23 (14-63) IU/L Alkaline Phosphatase 62 (46-116) U/L Troponin I < 0.050 (0.000-0.056) ng/mL Total Protein 4.1 L (6.4-8.2) g/dL Albumin 1.8 L (3.4-5.0) g/dL Globulin 2.3 L (2.6-4.0) g/dL Albumin/Globulin Ratio 0.8 L (0.9-1.6) Lipase 139 (73-393) U/L Urine Color Urine Appearance Urine pH (5.0-8.0) Ur Specific [place] (1.001-1.035) Urine Protein (NEGATIVE) mg/dL Urine Glucose (UA) (NEGATIVE) mg/dL Urine Ketones (NEGATIVE) mg/dL Urine Occult Blood (NEGATIVE) Urine Nitrite (NEGATIVE) Urine Bilirubin (NEGATIVE) Urine Urobilinogen (<2.0) EU/dL Ur Leukocyte Esterase (NEGATIVE) Influenza Type A RNA NEGATIVE (NEGATIVE) Influenza Type B RNA NEGATIVE (NEGATIVE) SARS-CoV-2 RNA (CRUZ) NEGATIVE (NEGATIVE) Blood Type Antibody Screen 12/06/20 12/06/20 12/06/20 Range/Units 12:23 12:41 14:36 WBC (4.0-11.0) K/uL RBC (4.30-5.90) M/uL Hgb 8.3 L (12.0-16.0) g/dL Hct 24.7 L (36.0-46.0) % MCV (80.0-98.0) fL MCH (27.0-32.0) pg MCHC (31.0-37.0) g/dL RDW Std Deviation (28.0-62.0) fl RDW Coeff of Lisa (11.0-15.0) % Plt Count (150-400) K/uL MPV (7.40-12.00) fL Neut % (Auto) (48.0-80.0) % Lymph % (Auto) (16.0-40.0) % [place] % (Auto) (0.0-15.0) % Eos % (Auto) (0.0-7.0) % Baso % (Auto) (0.0-1.5) % Neut # (Auto) (1.4-5.7) K/uL Lymph # (Auto) (0.6-2.4) K/uL [place] # (Auto) (0.0-0.8) K/uL Eos # (Auto) (0.0-0.7) K/uL Baso # (Auto) (0.0-0.1) K/uL Nucleated RBC % /100WBC Nucleated RBCs # K/uL VBG pH (7.31-7.41) VBG pCO2 (41-51) mmHG VBG pO2 mmHG VBG HCO3 (23-28) mEq/L VBG Total CO2 (24-29) mmol/L VBG Base Excess (-2.0-3.0) Sodium (136-145) mmol/L Potassium (3.5-5.1) mmol/L Chloride (98-107) mmol/L Carbon Dioxide (21.0-32.0) mmol/L BUN (7.0-18.0) mg/dL Creatinine (0.6-1.0) mg/dL Est Cr Clr Drug Dosing mL/min Estimated GFR (MDRD) ml/min Glucose (74-106) mg/dL Calcium (8.5-10.1) mg/dL Total Bilirubin (0.2-1.0) mg/dL AST (15-37) IU/L ALT (14-63) IU/L Alkaline Phosphatase (46-116) U/L Troponin I (0.000-0.056) ng/mL Total Protein (6.4-8.2) g/dL Albumin (3.4-5.0) g/dL Globulin (2.6-4.0) g/dL Albumin/Globulin Ratio (0.9-1.6) Lipase (73-393) U/L Urine Color YELLOW Urine Appearance CLEAR Urine pH 6.5 (5.0-8.0) Ur Specific [place] 1.010 (1.001-1.035) Urine Protein NEGATIVE (NEGATIVE) mg/dL Urine Glucose (UA) NEGATIVE (NEGATIVE) mg/dL Urine Ketones NEGATIVE (NEGATIVE) mg/dL Urine Occult Blood NEGATIVE (NEGATIVE) Urine Nitrite NEGATIVE (NEGATIVE) Urine Bilirubin NEGATIVE (NEGATIVE) Urine Urobilinogen 0.2 (<2.0) EU/dL Ur Leukocyte Esterase NEGATIVE (NEGATIVE) Influenza Type A RNA (NEGATIVE) Influenza Type B RNA (NEGATIVE) SARS-CoV-2 RNA (CRUZ) (NEGATIVE) Blood Type A POSITIVE Antibody Screen NEGATIVE 12/06/20 Range/Units 14:36 WBC (4.0-11.0) K/uL RBC (4.30-5.90) M/uL Hgb (12.0-16.0) g/dL Hct (36.0-46.0) % MCV (80.0-98.0) fL MCH (27.0-32.0) pg MCHC (31.0-37.0) g/dL RDW Std Deviation (28.0-62.0) fl RDW Coeff of Lisa (11.0-15.0) % Plt Count (150-400) K/uL MPV (7.40-12.00) fL Neut % (Auto) (48.0-80.0) % Lymph % (Auto) (16.0-40.0) % [place] % (Auto) (0.0-15.0) % Eos % (Auto) (0.0-7.0) % Baso % (Auto) (0.0-1.5) % Neut # (Auto) (1.4-5.7) K/uL Lymph # (Auto) (0.6-2.4) K/uL [place] # (Auto) (0.0-0.8) K/uL Eos # (Auto) (0.0-0.7) K/uL Baso # (Auto) (0.0-0.1) K/uL Nucleated RBC % /100WBC Nucleated RBCs # K/uL VBG pH 7.46 H (7.31-7.41) VBG pCO2 42 (41-51) mmHG VBG pO2 < 30 mmHG VBG HCO3 30 H (23-28) mEq/L VBG Total CO2 29 (24-29) mmol/L VBG Base Excess 5.4 H (-2.0-3.0) Sodium (136-145) mmol/L Potassium (3.5-5.1) mmol/L Chloride (98-107) mmol/L Carbon Dioxide (21.0-32.0) mmol/L BUN (7.0-18.0) mg/dL Creatinine (0.6-1.0) mg/dL Est Cr Clr Drug Dosing mL/min Estimated GFR (MDRD) ml/min Glucose (74-106) mg/dL Calcium (8.5-10.1) mg/dL Total Bilirubin (0.2-1.0) mg/dL AST (15-37) IU/L ALT (14-63) IU/L Alkaline Phosphatase (46-116) U/L Troponin I (0.000-0.056) ng/mL Total Protein (6.4-8.2) g/dL Albumin (3.4-5.0) g/dL Globulin (2.6-4.0) g/dL Albumin/Globulin Ratio (0.9-1.6) Lipase (73-393) U/L Urine Color Urine Appearance Urine pH (5.0-8.0) Ur Specific [place] (1.001-1.035) Urine Protein (NEGATIVE) mg/dL Urine Glucose (UA) (NEGATIVE) mg/dL Urine Ketones (NEGATIVE) mg/dL Urine Occult Blood (NEGATIVE) Urine Nitrite (NEGATIVE) Urine Bilirubin (NEGATIVE) Urine Urobilinogen (<2.0) EU/dL Ur Leukocyte Esterase (NEGATIVE) Influenza Type A RNA (NEGATIVE) Influenza Type B RNA (NEGATIVE) SARS-CoV-2 RNA (CRUZ) (NEGATIVE) Blood Type Antibody Screen Result Diagrams: 12/07/20 04:09 12/07/20 04:09 Sepsis Event Note - Evaluation Sepsis Screening Result: No Definite Risk - Focused Exam Vital Signs: Vital Signs Temp Pulse Resp BP Pulse Ox 12/06/20 17:15 37.2 C 104 H 14 116/73 96 12/06/20 16:53 95 130/63 97 12/06/20 16:23 95 123/57 L 96 12/06/20 15:53 93 133/61 95 12/06/20 15:23 96 122/57 L 95 12/06/20 14:53 93 116/48 L 92 L 12/06/20 13:53 97 107/60 93 L 12/06/20 12:53 100 118/57 L 92 L 12/06/20 11:54 114 H 125/54 L 93 L 12/06/20 11:50 36.9 C 106 H 20 125/54 L 94 L Problem List Initiated/Reviewed/Updated: Yes Orders Last 24hrs: Active Orders 24 hr Category Date Time Status Admission Status [Patient Status] [ADT] Stat ADT 12/06/20 16:35 Active RT Aerosol Therapy [RC] ASDIRECTED Care 12/06/20 12:05 Active Telemetry Monitoring [Cardiac Monitoring] [RC] Q8H Care 12/06/20 16:46 Active NPO Now [Nothing per Oral Now Diet] [DIET] Diet 12/07/20 Breakfast Active CBC W/O DIFF,HEMOGRAM [HEME] Routine Lab 12/06/20 20:59 Ordered TROPONIN I [CHEM] Routine Lab 12/06/20 20:59 Ordered ClonazePAM [KlonoPIN] Med 12/06/20 21:00 Ordered 0.5 mg PO TID PRN Mupirocin Oint [Bactroban Oint] Med 12/06/20 21:00 Ordered 22 gm TP BID Sodium Chloride 0.9% [Saline Flush] Med 12/06/20 11:57 Active 10 ml FLUSH ASDIRECTED PRN Sodium Chloride 0.9% [Saline Flush] Med 12/06/20 11:57 Active 2.5 ml FLUSH ASDIRECTED PRN Verapamil HCl [Verapamil] Med 12/06/20 22:00 Ordered 120 mg PO TID Saline Lock Insert [OM.PC] Stat Oth 12/06/20 11:57 Ordered Medication Orders Clonazepam (Clonazepam 0.5 Mg Tab) 0.5 mg PO TID PRN PRN Reason: Tremors Non-Formulary Medication (Mupirocin Oint [Bactroban Oint]) 22 gm TP BID ANGELIA Non-Formulary Medication (Verapamil Hcl [Verapamil]) 120 mg PO TID ANGELIA Sodium Chloride (Sodium Chloride 0.9% 10 Ml Syringe) 10 ml FLUSH ASDIRECTED PRN PRN Reason: Keep Vein Open Last Admin: 12/06/20 12:20 Dose: 10 ml Documented by: IVON Sodium Chloride (Sodium Chloride 0.9% 2.5 Ml Syringe) 2.5 ml FLUSH ASDIRECTED PRN PRN Reason: Keep Vein Open Last Admin: 12/06/20 12:19 Dose: 2.5 ml Documented by: IVON Assessment/Plan Comment:: 65 yo female who presents with shortness of breath likely due to COPD exacerbation and found to have anemia likely secondary to GI bleed COPD: has received solumedrol, duonebs GI bleed: Dr. Cook was consulted, will continue protonix, carafate, trend Hgb, hold Eliquis
[2020-12-06] MEDS: Mupirocin Oint 22 GM Tube TOP SCH (21:43)
[2020-12-06] MEDS: ClonazePAM 0.5 MG Tab PO PRN ×2 (21:50→23:00)
[2020-12-06] MEDS ORDERED: hydrOXYzine HCl 25 MG Tab PO PRN (21:53)
[2020-12-06] MEDS: Sucralfate Suspension 1 GM/10 ML Cup PO SCH ×3 (22:34→23:00)
[2020-12-06] MEDS: Albuterol/Ipratropium 3.0-0.5 MG/3 ML Neb Soln NEB SCH (23:11)
[2020-12-07] MEDS ORDERED: Pantoprazole 40 MG in Sodium Chloride 0.9% 10 ML IV SCH (03:00)
[2020-12-07 05:05] LABS: BLOOD UREA NITROGEN,BUN 17 mg/dL (7.0-18.0); CARBON DIOXIDE,CO2 29.8 mmol/L (21.0-32.0); CHLORIDE,CL 100 mmol/L (98-107); GLUCOSE RANDOM 135 mg/dL (74-106); POTASSIUM,K 4.2 mmol/L (3.5-5.1); SODIUM,NA 135 mmol/L (136-145)
[2020-12-07] MEDS: Albuterol/Ipratropium 3.0-0.5 MG/3 ML Neb Soln NEB SCH ×4 (06:34→23:06)
[2020-12-07] MEDS: Sucralfate Suspension 1 GM/10 ML Cup PO SCH ×2 (06:34→13:05)
--- NOTE | 2020-12-07 08:08 | PCM.PREANE ---
Preanesthetic Assessment - Anesthesia/Transfusion/Family Hx Anesthesia History: Prior Anesthesia Without Reaction Family History of Anesthesia Reaction: No Transfusion History: No Prior Transfusion(s) Intubation History: Unknown - Review of Systems General: No Symptoms Pulmonary: Shortness of Breath, Wheezing, Cough Cardiovascular: Orthopnea, Lightheadedness Gastrointestinal: Abdominal Pain Neurological: No Symptoms Other: Reports: Easy Bleeding, Neck Pain, Depression - Physical Assessment NPO Status Date: 12/07/20 NPO Status Time: 00:00 Vital Signs: Last Vital Signs Temp 97.9 F 12/07/20 04:00 Pulse 99 12/07/20 06:42 Resp 16 12/07/20 04:00 BP 125/61 12/07/20 06:42 Pulse Ox 91 L 12/07/20 04:00 Height: 5 ft 4 in Weight: 102 lb 15.294 oz ASA Class: 3E Mental Status: Alert & Oriented x3 Dentition: Reports: Normal Dentition ROM/Head Extension: Full Lungs: Clear to Auscultation, Normal Respiratory Effort Cardiovascular: Regular Rate, Regular Rhythm - Lab Values: Laboratory Last Values WBC 2.89 K/uL (4.0-11.0) L 12/07/20 04:09 RBC 2.52 M/uL (4.30-5.90) L 12/07/20 04:09 Hgb 8.0 g/dL (12.0-16.0) L 12/07/20 04:09 Hct 23.3 % (36.0-46.0) L 12/07/20 04:09 MCV 92.5 fL (80.0-98.0) 12/07/20 04:09 MCH 31.7 pg (27.0-32.0) 12/07/20 04:09 MCHC 34.3 g/dL (31.0-37.0) 12/07/20 04:09 RDW Std Deviation 48.9 fl (28.0-62.0) 12/07/20 04:09 RDW Coeff of Lisa 15 % (11.0-15.0) 12/07/20 04:09 Plt Count 285 K/uL (150-400) 12/07/20 04:09 MPV 8.40 fL (7.40-12.00) 12/07/20 04:09 Neut % (Auto) 82.7 % (48.0-80.0) H 12/07/20 04:09 Lymph % (Auto) 13.5 % (16.0-40.0) L 12/07/20 04:09 [place] % (Auto) 3.8 % (0.0-15.0) 12/07/20 04:09 Eos % (Auto) 0.0 % (0.0-7.0) 12/07/20 04:09 Baso % (Auto) 0.0 % (0.0-1.5) 12/07/20 04:09 Neut # (Auto) 2.4 K/uL (1.4-5.7) 12/07/20 04:09 Lymph # (Auto) 0.4 K/uL (0.6-2.4) L 12/07/20 04:09 [place] # (Auto) 0.1 K/uL (0.0-0.8) 12/07/20 04:09 Eos # (Auto) 0.0 K/uL (0.0-0.7) 12/07/20 04:09 Baso # (Auto) 0.0 K/uL (0.0-0.1) 12/07/20 04:09 Nucleated RBC % 0.0 /100WBC 12/07/20 04:09 Nucleated RBCs # 0 K/uL 12/07/20 04:09 VBG pH 7.46 (7.31-7.41) H 12/06/20 14:36 VBG pCO2 42 mmHG (41-51) 12/06/20 14:36 VBG pO2 < 30 mmHG 12/06/20 14:36 VBG HCO3 30 mEq/L (23-28) H 12/06/20 14:36 VBG Total CO2 29 mmol/L (24-29) 12/06/20 14:36 VBG Base Excess 5.4 (-2.0-3.0) H 12/06/20 14:36 Sodium 135 mmol/L (136-145) L 12/07/20 04:09 Potassium 4.2 mmol/L (3.5-5.1) 12/07/20 04:09 Chloride 100 mmol/L (98-107) 12/07/20 04:09 Carbon Dioxide 29.8 mmol/L (21.0-32.0) 12/07/20 04:09 BUN 17 mg/dL (7.0-18.0) 12/07/20 04:09 Creatinine 0.9 mg/dL (0.6-1.0) 12/07/20 04:09 Est Cr Clr Drug Dosing 45.94 mL/min 12/07/20 04:09 Estimated GFR (MDRD) > 60.0 ml/min 12/07/20 04:09 Glucose 135 mg/dL (74-106) H 12/07/20 04:09 Calcium 6.2 mg/dL (8.5-10.1) L 12/07/20 04:09 Iron 9 ug/dL (50-175) L 12/07/20 04:09 TIBC 270 ug/dL (250-450) 12/07/20 04:09 % Saturation 3.33 % (20-55) L 12/07/20 04:09 Transferrin 189.0 12/07/20 04:09 Ferritin 26 ng/mL (8-252) 12/07/20 04:09 Total Bilirubin 0.3 mg/dL (0.2-1.0) 12/07/20 04:09 AST 22 IU/L (15-37) 12/07/20 04:09 ALT 19 IU/L (14-63) 12/07/20 04:09 Alkaline Phosphatase 51 U/L (46-116) 12/07/20 04:09 Troponin I < 0.050 ng/mL (0.000-0.056) 12/06/20 21:13 Total Protein 3.7 g/dL (6.4-8.2) L 12/07/20 04:09 Albumin 1.5 g/dL (3.4-5.0) L 12/07/20 04:09 Globulin 2.2 g/dL (2.6-4.0) L 12/07/20 04:09 Albumin/Globulin Ratio 0.7 (0.9-1.6) L 12/07/20 04:09 Lipase 139 U/L (73-393) 12/06/20 12:12 Urine Color YELLOW 12/06/20 12:23 Urine Appearance CLEAR 12/06/20 12:23 Urine pH 6.5 (5.0-8.0) 12/06/20 12:23 Ur Specific [place] 1.010 (1.001-1.035) 12/06/20 12:23 Urine Protein NEGATIVE mg/dL (NEGATIVE) 12/06/20 12:23 Urine Glucose (UA) NEGATIVE mg/dL (NEGATIVE) 12/06/20 12:23 Urine Ketones NEGATIVE mg/dL (NEGATIVE) 12/06/20 12:23 Urine Occult Blood NEGATIVE (NEGATIVE) 12/06/20 12:23 Urine Nitrite NEGATIVE (NEGATIVE) 12/06/20 12:23 Urine Bilirubin NEGATIVE (NEGATIVE) 12/06/20 12:23 Urine Urobilinogen 0.2 EU/dL (<2.0) 12/06/20 12:23 Ur Leukocyte Esterase NEGATIVE (NEGATIVE) 12/06/20 12:23 Influenza Type A RNA NEGATIVE (NEGATIVE) 12/06/20 12:12 Influenza Type B RNA NEGATIVE (NEGATIVE) 12/06/20 12:12 SARS-CoV-2 RNA (CRUZ) NEGATIVE (NEGATIVE) 12/06/20 12:12 Blood Type A POSITIVE 12/06/20 12:41 Antibody Screen NEGATIVE 12/06/20 12:41 - Allergies Allergies/Adverse Reactions: Allergies Allergy/AdvReac Type Severity Reaction Status Date / Time metoclopramide [From Reglan] Allergy "dont take Verified 12/06/20 11:55 due to my tremors" Sulfa (Sulfonamide Allergy lips swell Verified 12/06/20 11:55 Antibiotics) & went numb - Blood Blood Available: Yes - Acknowledgements Anesthesia Type Planned: General Anesthesia Pt an Appropriate Candidate for the Planned Anesthesia: Yes Alternatives and Risks of Anesthesia Discussed w Pt/Guardian: Yes Pt/Guardian Understands and Agrees with Anesthesia Plan: Yes PreAnesthesia Questionnaire HEENT History: Reports: Cataract, Impaired Vision, Other (See Below) Other HEENT History: wears glasses Cardiovascular History: Reports: Afib, Hypertension Other Cardiovascular History: states A-Fib has converted but still takes medications Respiratory History: Reports: COPD Gastrointestinal History: Reports: Colon Polyp, GERD, Other (See Below) Other Gastrointestinal History: Ulcerated colon at age 8, patietn states was hospitalized Genitourinary History: Reports: None 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: Musculoskeletal History: Reports: Fracture, Neck Pain, Chronic, RA Other Musculoskeletal History: has RA in hands, hx of fx finger, hx of Spasmotic Torticollis Neurological History: Reports: Other (See Below) Other Neuro History: spasmatic torticollis; states head shakes and has tremors (dystonia) Psychiatric History: Reports: None Endocrine/Metabolic History: Reports: None Hematologic History: Reports: None Immunologic History: Reports: Immunosuppression Other Immunologic History: states has MRSA with the infection right buttock open sore Oncologic (Cancer) History: Reports: None Dermatologic History: Reports: Other (See Below) Other Dermatologic History: states has a scabbed sore to right buttock - Infectious Disease History Infectious Disease History: Reports: Chicken Pox, MRSA, Mumps Other Infectious Disease History: open sore right buttock - Past Surgical History Head Surgeries/Procedures: Reports: None HEENT Surgical History: Reports: Cataract Surgery, Tonsillectomy Other HEENT Surgeries/Procedures: Catarct surgery in 2019 Cardiovascular Surgical History: Reports: None Respiratory Surgical History: Reports: None GI Surgical History: Reports: Colonoscopy Female Surgical History: Reports: Section Other Female Surgeries/Procedures: x2 Endocrine Surgical History: Reports: None Neurological Surgical History: Reports: Other (See Below) Other Neurological Surgeries/Procedures: hx of Cervical Spine Nerve Ablation for neck spasms (20 years ago), Selective denervation Musculoskeletal Surgical History: Reports: None Oncologic Surgical History: Reports: None Dermatological Surgical History: Reports: Other (See Below) - SUBSTANCE USE Tobacco Use Status *Q: Current Every Day Tobacco User Tobacco Use Within Last Twelve Months: Cigarettes Recreational Drug Use History: No - HOME MEDS Home Medications: Home Meds Tiotropium Br/Olodaterol HCl [Stiolto Respimat Inhal [place]] 2 puff INH QAM 03/31/18 [History] Apixaban [Eliquis] 5 mg PO BID 10/26/18 [History] Digoxin 125 mcg PO QAM 10/26/18 [History] Folic Acid 1 mg PO DAILY 10/26/18 [History] Methotrexate 10 mg PO WEEKLY 10/26/18 [History] Potassium Chloride [Klor-Con] 20 meq PO DAILY 10/26/18 [History] Verapamil HCl [Verapamil] 120 mg PO TID 10/26/18 [History] predniSONE [Prednisone] 5 mg PO BID 10/26/18 [History] Omeprazole 20 mg PO DAILY 05/14/20 [History] ClonazePAM [KlonoPIN] 0.5 mg PO TID PRN 12/06/20 [History] Furosemide 20 mg PO DAILY 12/06/20 [History] Mupirocin Oint [Bactroban Oint] 22 gm TP BID 12/06/20 [History] hydrOXYzine HCL [Hydroxyzine HCl] 25 mg PO QID PRN 12/06/20 [History] - CURRENT (IN HOUSE) MEDS Current Meds: Current Medications Albuterol/Ipratropium (Albuterol/Ipratropium 3.0-0.5 Mg/3 Ml Neb Soln) 3 ml NEB Q6HRRT [facility] Last Admin: 12/07/20 06:34 Dose: 3 ml Documented by: Clonazepam (Clonazepam 0.5 Mg Tab) 0.125 - 0.25 mg PO QID@0800,1600,2000,2300 PRN PRN Reason: Tremors Last Admin: 12/06/20 23:00 Dose: 0.25 mg Documented by: Digoxin (Digoxin 125 Mcg Tab) 125 mcg PO DAILY@1300 [facility] Hydroxyzine HCl (Hydroxyzine Hcl 25 Mg Tab) 25 mg PO QID PRN PRN Reason: Anxiety Pantoprazole Sodium 40 mg/ (Sodium Chloride) 10 mls @ 300 mls/hr IV Q12H [facility] Last Admin: 12/07/20 03:59 Dose: 300 mls/hr Documented by: Mupirocin (Mupirocin Oint 22 Gm Tube) 0 gm TOP BID [facility] Last Admin: 12/06/20 21:43 Dose: 1 applic Documented by: Sodium Chloride (Sodium Chloride 0.9% 10 Ml Syringe) 10 ml FLUSH ASDIRECTED PRN PRN Reason: Keep Vein Open Last Admin: 12/06/20 12:20 Dose: 10 ml Documented by: Sodium Chloride (Sodium Chloride 0.9% 2.5 Ml Syringe) 2.5 ml FLUSH ASDIRECTED PRN PRN Reason: Keep Vein Open Last Admin: 12/06/20 12:19 Dose: 2.5 ml Documented by: Sucralfate (Sucralfate Suspension 1 Gm/10 Ml Cup) 1 gm PO TIDAC [facility] Last Admin: 12/07/20 06:34 Dose: 1 gm Documented by: Verapamil HCl (Verapamil 40 Mg Tab) 120 mg PO TID [facility] Last Admin: 12/07/20 06:44 Dose: 120 mg Documented by: Discontinued Medications Albuterol/Ipratropium (Albuterol/Ipratropium 3.0-0.5 Mg/3 Ml Neb Soln) 3 ml NEB ONETIME ONE Stop: 12/06/20 12:06 Last Admin: 12/06/20 12:19 Dose: 3 ml Documented by: Pantoprazole Sodium 80 mg/ (Sodium Chloride) 20 mls @ 420 mls/hr IVPUSH ONETIME ONE Stop: 12/06/20 15:42 Last Admin: 12/06/20 16:00 Dose: 420 mls/hr Documented by: Iopamidol (Iopamidol 755 Mg/Ml 500 Ml Multipack Bottle) 87 ml IVPUSH ONETIME STA Stop: 12/06/20 14:54 Last Admin: 12/06/20 14:54 Dose: 87 ml Documented by: Methylprednisolone Sodium Succinate (Methylprednisolone Sodium Succinate 125 Mg/2 Ml Sdv) 125 mg IVPUSH ONETIME ONE Stop: 12/06/20 12:06 Last Admin: 12/06/20 12:19 Dose: 125 mg Documented by: Sucralfate (Sucralfate Suspension 1 Gm/10 Ml Cup) 1 gm PO TIDAC [facility] Last Admin: 12/06/20 22:35 Dose: Not Given Documented by:
--- NOTE | 2020-12-07 08:51 | PCM.CONS ---
H&P History of Present Illness - General Date of Service: 12/07/20 Admit Problem/Dx: Admission Diagnosis/Problem Admission Diagnosis/Problem GI bleed not requiring more than 4 units of blood in 24 hours, ICU, or surgery Source of Information: Patient History Limitations: Reports: No Limitations - History of Present Illness Initial Comments - Free Text/Narative: Patient is a 65-year-old female who was admitted to the hospital last night with anemia and Hemoccult positive stools. She states she has been having dark stools for the last 2 weeks and gradually got a little weaker. She does have a remote history of peptic ulcer disease. I did perform upper and lower GI endoscopy on her in May of this year. She did have some mild gastritis but no acute ulcerations and no significant lower GI tract pathology. Patient states she is doing fairly well. She is scheduled to see a movement disorder specialist in [place] next week. She does have significant rheumatoid arthritis and has been on chronic methotrexate therapy. Onset of Symptoms: Reports: Other (2 weeks ago) Duration of Symptoms: Reports: Week(s): Location: Reports: Abdomen Quality: Reports: Ache Severity: Moderate Improves with: Reports: None Worsens with: Reports: None Associated Symptoms: Reports: No Other Symptoms Abdomen Pain Score (Numeric/FACES): 3 - Related Data Allergies/Adverse Reactions: Allergies Allergy/AdvReac Type Severity Reaction Status Date / Time metoclopramide [From Reglan] Allergy "dont take Verified 12/06/20 11:55 due to my tremors" Sulfa (Sulfonamide Allergy lips swell Verified 12/06/20 11:55 Antibiotics) & went numb Home Medications: Home Meds Tiotropium Br/Olodaterol HCl [Stiolto Respimat Inhal [place]] 2 puff INH QAM 03/31/18 [History] Apixaban [Eliquis] 5 mg PO BID 10/26/18 [History] Digoxin 125 mcg PO QAM 10/26/18 [History] Folic Acid 1 mg PO DAILY 10/26/18 [History] Methotrexate 10 mg PO WEEKLY 10/26/18 [History] Potassium Chloride [Klor-Con] 20 meq PO DAILY 10/26/18 [History] Verapamil HCl [Verapamil] 120 mg PO TID 10/26/18 [History] predniSONE [Prednisone] 5 mg PO BID 09/10/19 [History] Omeprazole 20 mg PO DAILY 05/14/20 [History] ClonazePAM [KlonoPIN] 0.5 mg PO TID PRN 12/06/20 [History] Furosemide 20 mg PO DAILY 12/06/20 [History] Mupirocin Oint [Bactroban Oint] 22 gm TP BID 12/06/20 [History] hydrOXYzine HCL [Hydroxyzine HCl] 25 mg PO QID PRN 12/06/20 [History] Past Medical History HEENT History: Reports: Cataract, Impaired Vision, Other (See Below) Other HEENT History: wears glasses Cardiovascular History: Reports: Afib, Hypertension Other Cardiovascular History: states A-Fib has converted but still takes medications Respiratory History: Reports: COPD Gastrointestinal History: Reports: Colon Polyp, GERD, Other (See Below) Other Gastrointestinal History: Ulcerated colon at age 8, patietn states was hospitalized Genitourinary History: Reports: None 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: Musculoskeletal History: Reports: Fracture, Neck Pain, Chronic, RA Other Musculoskeletal History: has RA in hands, hx of fx finger, hx of Spasmotic Torticollis Neurological History: Reports: Other (See Below) Other Neuro History: spasmatic torticollis; states head shakes and has tremors (dystonia) Psychiatric History: Reports: None Endocrine/Metabolic History: Reports: None Hematologic History: Reports: None Immunologic History: Reports: Immunosuppression Other Immunologic History: states has MRSA with the infection right buttock open sore Oncologic (Cancer) History: Reports: None Dermatologic History: Reports: Other (See Below) Other Dermatologic History: states has a scabbed sore to right buttock - Infectious Disease History Infectious Disease History: Reports: Chicken Pox, MRSA, Mumps Other Infectious Disease History: open sore right buttock - Past Surgical History Head Surgeries/Procedures: Reports: None HEENT Surgical History: Reports: Cataract Surgery, Tonsillectomy Other HEENT Surgeries/Procedures: Catarct surgery in 2019 Cardiovascular Surgical History: Reports: None Respiratory Surgical History: Reports: None GI Surgical History: Reports: Colonoscopy Female Surgical History: Reports: Section Other Female Surgeries/Procedures: x2 Endocrine Surgical History: Reports: None Neurological Surgical History: Reports: Other (See Below) Other Neurological Surgeries/Procedures: hx of Cervical Spine Nerve Ablation for neck spasms (20 years ago), Selective denervation Musculoskeletal Surgical History: Reports: None Oncologic Surgical History: Reports: None Dermatological Surgical History: Reports: Other (See Below) Social & Family History - Family History Family Medical History: No Pertinent Family History - Tobacco Use Tobacco Use Status *Q: Current Every Day Tobacco User Years of Tobacco use: 45 Packs/Tins Daily: 0.5 - Caffeine Use Caffeine Use: Reports: Soda Caffeine Use Comment: Rarely drinks soda, once per month. - Recreational Drug Use Recreational Drug Use: No H&P Review of Systems - Review of Systems: Review Of Systems: See Below General: Reports: Weakness, Fatigue. Denies: Fever, Chills, Malaise, Night Sweats HEENT: Reports: No Symptoms Pulmonary: Reports: Shortness of Breath (Patient does have COPD). Denies: Wheezing Cardiovascular: Denies: Chest Pain, Palpitations Gastrointestinal: Reports: Abdominal Pain (Mild epigastric discomfort), Black Stool, Decreased Appetite, Melena. Denies: Anorexia, Constipation, Diarrhea Genitourinary: Denies: Dysuria, Frequency, Burning Musculoskeletal: Reports: No Symptoms Skin: Reports: Pallor. Denies: Cyanosis, Jaundice, Mottled, Diaphoresis Psychiatric: Denies: Confusion, Depression, Anxiety Neurological: Reports: No Symptoms Hematologic/Lymphatic: Reports: Anemia. Denies: Easy Bleeding, Easy Bruising Immunologic: Reports: No Symptoms Exam - Exam Exam: See Below - Vital Signs Vital Signs: Last Vital Signs Temp 97.7 F 12/07/20 08:15 Pulse 90 12/07/20 08:15 Resp 16 12/07/20 08:15 BP 108/55 L 12/07/20 08:15 Pulse Ox 93 L 12/07/20 08:15 Weight: 102 lb 15.294 oz - Exam Quality Assessment: Supplemental Oxygen. No: Central Line/PICC, Urinary Catheter General: Oriented, Cooperative, Mild Distress HEENT: Conjunctiva Clear, Nares Patent, Pupils Equal, Pupils Reactive. No: Scleral Icterus Neck: Supple, Trachea Midline Lungs: Clear to Auscultation, Normal Respiratory Effort Cardiovascular: Regular Rate, Regular Rhythm. No: Tachycardia GI/Abdominal Exam: Normal Bowel Sounds, Soft, No Distention, Tender (Mild epigastric tenderness). No: Guarding, Rigid, Rebound (Female) Exam: Deferred Rectal (Female) Exam: Deferred Back Exam: Normal Inspection Extremities: Normal Inspection, No Pedal Edema Peripheral Pulses: 4+: Posterior Tibial (L), Posterior Tibial (R), Dorsalis Pedis (L), Dorsalis Pedis (R) Skin: Warm, Dry, Intact Neurological: Cranial Nerves Intact Psychiatric: Alert, Normal Affect, Normal Mood - Patient Data Lab Results Last 24 hrs: Laboratory Results - last 24 hr 12/06/20 12/06/20 12/06/20 Range/Units 12:12 12:12 12:12 WBC 6.44 (4.0-11.0) K/uL RBC 2.86 L (4.30-5.90) M/uL Hgb 9.1 L (12.0-16.0) g/dL Hct 26.8 L (36.0-46.0) % MCV 93.7 (80.0-98.0) fL MCH 31.8 (27.0-32.0) pg MCHC 34.0 (31.0-37.0) g/dL RDW Std Deviation 49.9 (28.0-62.0) fl RDW Coeff of Lisa 15 (11.0-15.0) % Plt Count 302 (150-400) K/uL MPV 8.80 (7.40-12.00) fL Neut % (Auto) 90.7 H (48.0-80.0) % Lymph % (Auto) 4.8 L (16.0-40.0) % Ida % (Auto) 4.0 (0.0-15.0) % Eos % (Auto) 0.3 (0.0-7.0) % Baso % (Auto) 0.2 (0.0-1.5) % Neut # (Auto) 5.8 H (1.4-5.7) K/uL Lymph # (Auto) 0.3 L (0.6-2.4) K/uL Ida # (Auto) 0.3 (0.0-0.8) K/uL Eos # (Auto) 0.0 (0.0-0.7) K/uL Baso # (Auto) 0.0 (0.0-0.1) K/uL Nucleated RBC % 0.0 /100WBC Nucleated RBCs # 0 K/uL VBG pH (7.31-7.41) VBG pCO2 (41-51) mmHG VBG pO2 mmHG VBG HCO3 (23-28) mEq/L VBG Total CO2 (24-29) mmol/L VBG Base Excess (-2.0-3.0) Sodium 131 L (136-145) mmol/L Potassium 4.1 (3.5-5.1) mmol/L Chloride 95 L (98-107) mmol/L Carbon Dioxide 29.6 (21.0-32.0) mmol/L BUN 20 H (7.0-18.0) mg/dL Creatinine 1.1 H (0.6-1.0) mg/dL Est Cr Clr Drug Dosing 41.99 mL/min Estimated GFR (MDRD) 49.8 ml/min Glucose 109 H (74-106) mg/dL Calcium 6.7 L (8.5-10.1) mg/dL Iron (50-175) ug/dL TIBC (250-450) ug/dL % Saturation (20-55) % Transferrin Ferritin (8-252) ng/mL Total Bilirubin 0.3 (0.2-1.0) mg/dL AST 29 (15-37) IU/L ALT 23 (14-63) IU/L Alkaline Phosphatase 62 (46-116) U/L Troponin I < 0.050 (0.000-0.056) ng/mL Total Protein 4.1 L (6.4-8.2) g/dL Albumin 1.8 L (3.4-5.0) g/dL Globulin 2.3 L (2.6-4.0) g/dL Albumin/Globulin Ratio 0.8 L (0.9-1.6) Lipase 139 (73-393) U/L Urine Color Urine Appearance Urine pH (5.0-8.0) Ur Specific [place] (1.001-1.035) Urine Protein (NEGATIVE) mg/dL Urine Glucose (UA) (NEGATIVE) mg/dL Urine Ketones (NEGATIVE) mg/dL Urine Occult Blood (NEGATIVE) Urine Nitrite (NEGATIVE) Urine Bilirubin (NEGATIVE) Urine Urobilinogen (<2.0) EU/dL Ur Leukocyte Esterase (NEGATIVE) Influenza Type A RNA NEGATIVE (NEGATIVE) Influenza Type B RNA NEGATIVE (NEGATIVE) SARS-CoV-2 RNA (CRUZ) NEGATIVE (NEGATIVE) Blood Type Antibody Screen 12/06/20 12/06/20 12/06/20 Range/Units 12:23 12:41 14:36 WBC (4.0-11.0) K/uL RBC (4.30-5.90) M/uL Hgb 8.3 L (12.0-16.0) g/dL Hct 24.7 L (36.0-46.0) % MCV (80.0-98.0) fL MCH (27.0-32.0) pg MCHC (31.0-37.0) g/dL RDW Std Deviation (28.0-62.0) fl RDW Coeff of Lisa (11.0-15.0) % Plt Count (150-400) K/uL MPV (7.40-12.00) fL Neut % (Auto) (48.0-80.0) % Lymph % (Auto) (16.0-40.0) % Ida % (Auto) (0.0-15.0) % Eos % (Auto) (0.0-7.0) % Baso % (Auto) (0.0-1.5) % Neut # (Auto) (1.4-5.7) K/uL Lymph # (Auto) (0.6-2.4) K/uL Ida # (Auto) (0.0-0.8) K/uL Eos # (Auto) (0.0-0.7) K/uL Baso # (Auto) (0.0-0.1) K/uL Nucleated RBC % /100WBC Nucleated RBCs # K/uL VBG pH (7.31-7.41) VBG pCO2 (41-51) mmHG VBG pO2 mmHG VBG HCO3 (23-28) mEq/L VBG Total CO2 (24-29) mmol/L VBG Base Excess (-2.0-3.0) Sodium (136-145) mmol/L Potassium (3.5-5.1) mmol/L Chloride (98-107) mmol/L Carbon Dioxide (21.0-32.0) mmol/L BUN (7.0-18.0) mg/dL Creatinine (0.6-1.0) mg/dL Est Cr Clr Drug Dosing mL/min Estimated GFR (MDRD) ml/min Glucose (74-106) mg/dL Calcium (8.5-10.1) mg/dL Iron (50-175) ug/dL TIBC (250-450) ug/dL % Saturation (20-55) % Transferrin Ferritin (8-252) ng/mL Total Bilirubin (0.2-1.0) mg/dL AST (15-37) IU/L ALT (14-63) IU/L Alkaline Phosphatase (46-116) U/L Troponin I (0.000-0.056) ng/mL Total Protein (6.4-8.2) g/dL Albumin (3.4-5.0) g/dL Globulin (2.6-4.0) g/dL Albumin/Globulin Ratio (0.9-1.6) Lipase (73-393) U/L Urine Color YELLOW Urine Appearance CLEAR Urine pH 6.5 (5.0-8.0) Ur Specific [place] 1.010 (1.001-1.035) Urine Protein NEGATIVE (NEGATIVE) mg/dL Urine Glucose (UA) NEGATIVE (NEGATIVE) mg/dL Urine Ketones NEGATIVE (NEGATIVE) mg/dL Urine Occult Blood NEGATIVE (NEGATIVE) Urine Nitrite NEGATIVE (NEGATIVE) Urine Bilirubin NEGATIVE (NEGATIVE) Urine Urobilinogen 0.2 (<2.0) EU/dL Ur Leukocyte Esterase NEGATIVE (NEGATIVE) Influenza Type A RNA (NEGATIVE) Influenza Type B RNA (NEGATIVE) SARS-CoV-2 RNA (CRUZ) (NEGATIVE) Blood Type A POSITIVE Antibody Screen NEGATIVE 12/06/20 12/06/20 12/06/20 Range/Units 14:36 21:13 21:13 WBC 3.14 L (4.0-11.0) K/uL RBC 2.70 L (4.30-5.90) M/uL Hgb 8.6 L (12.0-16.0) g/dL Hct 25.2 L (36.0-46.0) % MCV 93.3 (80.0-98.0) fL MCH 31.9 (27.0-32.0) pg MCHC 34.1 (31.0-37.0) g/dL RDW Std Deviation 49.8 (28.0-62.0) fl RDW Coeff of Lisa 15 (11.0-15.0) % Plt Count 284 (150-400) K/uL MPV 8.30 (7.40-12.00) fL Neut % (Auto) (48.0-80.0) % Lymph % (Auto) (16.0-40.0) % Ida % (Auto) (0.0-15.0) % Eos % (Auto) (0.0-7.0) % Baso % (Auto) (0.0-1.5) % Neut # (Auto) (1.4-5.7) K/uL Lymph # (Auto) (0.6-2.4) K/uL Ida # (Auto) (0.0-0.8) K/uL Eos # (Auto) (0.0-0.7) K/uL Baso # (Auto) (0.0-0.1) K/uL Nucleated RBC % 0.0 /100WBC Nucleated RBCs # 0 K/uL VBG pH 7.46 H (7.31-7.41) VBG pCO2 42 (41-51) mmHG VBG pO2 < 30 mmHG VBG HCO3 30 H (23-28) mEq/L VBG Total CO2 29 (24-29) mmol/L VBG Base Excess 5.4 H (-2.0-3.0) Sodium (136-145) mmol/L Potassium (3.5-5.1) mmol/L Chloride (98-107) mmol/L Carbon Dioxide (21.0-32.0) mmol/L BUN (7.0-18.0) mg/dL Creatinine (0.6-1.0) mg/dL Est Cr Clr Drug Dosing mL/min Estimated GFR (MDRD) ml/min Glucose (74-106) mg/dL Calcium (8.5-10.1) mg/dL Iron (50-175) ug/dL TIBC (250-450) ug/dL % Saturation (20-55) % Transferrin Ferritin (8-252) ng/mL Total Bilirubin (0.2-1.0) mg/dL AST (15-37) IU/L ALT (14-63) IU/L Alkaline Phosphatase (46-116) U/L Troponin I < 0.050 (0.000-0.056) ng/mL Total Protein (6.4-8.2) g/dL Albumin (3.4-5.0) g/dL Globulin (2.6-4.0) g/dL Albumin/Globulin Ratio (0.9-1.6) Lipase (73-393) U/L Urine Color Urine Appearance Urine pH (5.0-8.0) Ur Specific [place] (1.001-1.035) Urine Protein (NEGATIVE) mg/dL Urine Glucose (UA) (NEGATIVE) mg/dL Urine Ketones (NEGATIVE) mg/dL Urine Occult Blood (NEGATIVE) Urine Nitrite (NEGATIVE) Urine Bilirubin (NEGATIVE) Urine Urobilinogen (<2.0) EU/dL Ur Leukocyte Esterase (NEGATIVE) Influenza Type A RNA (NEGATIVE) Influenza Type B RNA (NEGATIVE) SARS-CoV-2 RNA (CRUZ) (NEGATIVE) Blood Type Antibody Screen 12/07/20 12/07/20 12/07/20 Range/Units 04:09 04:09 04:09 WBC 2.89 L (4.0-11.0) K/uL RBC 2.52 L (4.30-5.90) M/uL Hgb 8.0 L (12.0-16.0) g/dL Hct 23.3 L (36.0-46.0) % MCV 92.5 (80.0-98.0) fL MCH 31.7 (27.0-32.0) pg MCHC 34.3 (31.0-37.0) g/dL RDW Std Deviation 48.9 (28.0-62.0) fl RDW Coeff of Lisa 15 (11.0-15.0) % Plt Count 285 (150-400) K/uL MPV 8.40 (7.40-12.00) fL Neut % (Auto) 82.7 H (48.0-80.0) % Lymph % (Auto) 13.5 L (16.0-40.0) % Ida % (Auto) 3.8 (0.0-15.0) % Eos % (Auto) 0.0 (0.0-7.0) % Baso % (Auto) 0.0 (0.0-1.5) % Neut # (Auto) 2.4 (1.4-5.7) K/uL Lymph # (Auto) 0.4 L (0.6-2.4) K/uL Ida # (Auto) 0.1 (0.0-0.8) K/uL Eos # (Auto) 0.0 (0.0-0.7) K/uL Baso # (Auto) 0.0 (0.0-0.1) K/uL Nucleated RBC % 0.0 /100WBC Nucleated RBCs # 0 K/uL VBG pH (7.31-7.41) VBG pCO2 (41-51) mmHG VBG pO2 mmHG VBG HCO3 (23-28) mEq/L VBG Total CO2 (24-29) mmol/L VBG Base Excess (-2.0-3.0) Sodium 135 L (136-145) mmol/L Potassium 4.2 (3.5-5.1) mmol/L Chloride 100 (98-107) mmol/L Carbon Dioxide 29.8 (21.0-32.0) mmol/L BUN 17 (7.0-18.0) mg/dL Creatinine 0.9 (0.6-1.0) mg/dL Est Cr Clr Drug Dosing 45.94 mL/min Estimated GFR (MDRD) > 60.0 ml/min Glucose 135 H (74-106) mg/dL Calcium 6.2 L (8.5-10.1) mg/dL Iron 9 L (50-175) ug/dL TIBC 270 (250-450) ug/dL % Saturation 3.33 L (20-55) % Transferrin 189.0 Ferritin 26 (8-252) ng/mL Total Bilirubin 0.3 (0.2-1.0) mg/dL AST 22 (15-37) IU/L ALT 19 (14-63) IU/L Alkaline Phosphatase 51 (46-116) U/L Troponin I (0.000-0.056) ng/mL Total Protein 3.7 L (6.4-8.2) g/dL Albumin 1.5 L (3.4-5.0) g/dL Globulin 2.2 L (2.6-4.0) g/dL Albumin/Globulin Ratio 0.7 L (0.9-1.6) Lipase (73-393) U/L Urine Color Urine Appearance Urine pH (5.0-8.0) Ur Specific [place] (1.001-1.035) Urine Protein (NEGATIVE) mg/dL Urine Glucose (UA) (NEGATIVE) mg/dL Urine Ketones (NEGATIVE) mg/dL Urine Occult Blood (NEGATIVE) Urine Nitrite (NEGATIVE) Urine Bilirubin (NEGATIVE) Urine Urobilinogen (<2.0) EU/dL Ur Leukocyte Esterase (NEGATIVE) Influenza Type A RNA (NEGATIVE) Influenza Type B RNA (NEGATIVE) SARS-CoV-2 RNA (CRUZ) (NEGATIVE) Blood Type Antibody Screen Result Diagrams: 12/07/20 04:09 12/07/20 04:09 Sepsis Event Note - Evaluation Sepsis Screening Result: No Definite Risk - Focused Exam Vital Signs: Vital Signs Temp Pulse Resp BP Pulse Ox Pulse Ox 12/07/20 08:15 97.7 F 90 16 108/55 L 93 L 12/07/20 06:42 99 125/61 12/07/20 04:00 97.9 F 86 16 115/51 L 91 L 12/06/20 23:01 98.2 F 109 H 18 132/59 L 94 L 12/06/20 22:11 97 12/06/20 21:00 98.2 F 101 H 16 122/65 91 L Consult PN Assessment/Plan Procedures: Procedures ANTINUCLEAR ANTIBODIES (11/05/20) ASSAY OF ALDOLASE (11/05/20) ASSAY OF CALCIUM (11/01/18) ASSAY OF CK (CPK) (11/05/20) ASSAY OF DIGOXIN TOTAL (11/01/18) ASSAY OF LACTIC ACID (03/31/18) ASSAY OF NATRIURETIC PEPTIDE (05/14/18) ASSAY OF TROPONIN QUANT (03/31/18) ASSAY THYROID STIM HORMONE (05/14/18) BLOOD CULTURE FOR BACTERIA (03/31/18) LOVELY DNA DIR PROBE (05/11/20) CCP ANTIBODY (03/26/18) CO/MEMBANE DIFFUSE CAPACITY (09/04/16) COLONOSCOPY AND BIOPSY (05/18/20) COMPLETE CBC W/AUTO DIFF WBC (11/05/20) COMPREHEN METABOLIC PANEL (11/05/20) CT ANGIOGRAPHY CHEST (03/31/18) CT MAXILLOFACIAL W/O DYE (08/22/15) CULTURE AEROBIC IDENTIFY (12/05/19) CULTURE OTHR SPECIMN AEROBIC (10/17/20) CYTOPATH C/V AUTO FLUID REDO (12/05/19) DIAGNOSTIC COLONOSCOPY (09/13/15) DNA ANTIBODY SW[place] (11/05/20) EGD BIOPSY SINGLE/MULTIPLE (05/18/20) ELECTROCARDIOGRAM TRACING (03/31/18) EMERGENCY DEPT VISIT (03/31/18) EVALUATION OF WHEEZING (09/04/16) EXC TR-EXT B9+JOSE 1.1-2 CM (02/02/20) FIBRIN DEGRADATION QUANT (03/31/18) FLUORESCENT ANTIBODY SCREEN (11/05/20) ABDI VAG DNA DIR PROBE (05/11/20) GLYCOSYLATED HEMOGLOBIN TEST (05/14/18) HPV HIGH-RISK TYPES (12/05/19) INFLUENZA ASSAY W/OPTIC (03/31/18) LIPID PANEL (05/14/18) MICROBE SUSCEPTIBLE TORRI (12/05/19) NUCLEAR ANTIGEN ANTIBODY (11/05/20) PULM FUNCTION TEST BY GAS (09/04/16) RBC SED RATE AUTOMATED (03/26/18) RHEUMATOID FACTOR QUANT (03/26/18) RHEUMATOID FACTOR TEST QUAL (03/26/18) ROUTINE VENIPUNCTURE (11/05/20) SARS-COV-2 COVID-19 AMP PRB (07/03/20) SMEAR GRAM STAIN (10/17/20) SPECIAL STAINS GROUP 1 (02/02/20) THER/PROPH/DIAG INJ IV PUSH (03/31/18) TISSUE EXAM BY PATHOLOGIST (02/02/20) TRICHOMONAS VAGIN DIR PROBE (05/11/20) TX/PRO/DX INJ NEW DRUG ADDON (03/31/18) URINALYSIS AUTO W/O SCOPE (11/05/20) URINALYSIS AUTO W/SCOPE (03/31/18) US EXAM ABDO BACK WALL ALBRIGHT (03/02/19) VIRUS INOCULATION TISSUE (09/21/20) X-RAY EXAM CHEST 1 VIEW (03/31/18) X-RAY EXAM CHEST 2 VIEWS (11/05/20) X-RAY EXAM OF HAND (03/26/18) (1) COPD exacerbation SNOMED Code(s): 516846294 Code(s): J44.1 - CHRONIC OBSTRUCTIVE PULMONARY DISEASE W (ACUTE) EXACERBATION Priority: Medium Current Visit: Yes (2) Dyspnea SNOMED Code(s): 822215559 Code(s): R06.00 - DYSPNEA, UNSPECIFIED Priority: Medium Current Visit: Yes (3) GI bleeding SNOMED Code(s): 59857578 Code(s): K92.2 - GASTROINTESTINAL HEMORRHAGE, UNSPECIFIED Priority: High Current Visit: Yes (4) Guaiac positive stools SNOMED Code(s): 27844306 Code(s): R19.5 - OTHER FECAL ABNORMALITIES Current Visit: Yes Problem List Initiated/Reviewed/Updated: Yes Plan: Esophagogastroduodenoscopy with biopsy. The operative procedure, along with the risks, including, but not limited to, bleeding, perforation, and the need for surgery were discussed with the patient who voices understanding, offers no questions and wishes to proceed.
[2020-12-07] MEDS ORDERED: Propofol 200 MG/20 ML SDV ONE (09:23)
[2020-12-07] MEDS ORDERED: Midazolam 1 MG/ML 2 ML SDV ONE (09:23)
[2020-12-07] MEDS ORDERED: Lidocaine 2% 5 ML SDV ONE (09:24)
[2020-12-07] MEDS ORDERED: fentaNYL 100 MCG/2 ML SDV ONE (09:24)
[2020-12-07] MEDS: Mupirocin Oint 22 GM Tube TOP SCH ×2 (10:39→20:41)
--- NOTE | 2020-12-07 10:54 | PCM48HPAN ---
Post Anesthesia Note - EVALUATION WITHIN 48HRS OF ANESTHETIC Vital Signs in Normal Range: Yes Patient Participated in Evaluation: Yes Respiratory Function Stable: Yes Airway Patent: Yes Cardiovascular Function Stable: Yes Hydration Status Stable: Yes Pain Control Satisfactory: Yes Nausea and Vomiting Control Satisfactory: Yes Mental Status Recovered: Yes Vital Signs: Last Vital Signs Temp 97.9 F 12/07/20 10:43 Pulse 84 12/07/20 10:48 Resp 13 12/07/20 10:48 BP 108/58 L 12/07/20 10:48 Pulse Ox 100 12/07/20 10:48
--- NOTE | 2020-12-07 10:54 | PCM.POSTAN ---
POST ANESTHESIA ASSESSMENT - MENTAL STATUS Mental Status: Alert, Oriented - VITAL SIGNS Vital Signs: Last Vital Signs Temp 97.9 F 12/07/20 10:43 Pulse 84 12/07/20 10:48 Resp 13 12/07/20 10:48 BP 108/58 L 12/07/20 10:48 Pulse Ox 100 12/07/20 10:48 - RESPIRATORY Respiratory Status: Respiratory Rate WNL, Airway Patent, O2 Saturation Stable - CARDIOVASCULAR CV Status: Pulse Rate WNL, Blood Pressure Stable - GASTROINTESTINAL GI Status: No Symptoms - POST OP HYDRATION Hydration Status: Adequate & Stable
--- NOTE | 2020-12-07 10:54 | PCM.OPNOTE ---
- General Post-Op/Procedure Note Date of Surgery/Procedure: 12/07/20 Operative Procedure(s): Esophagogastroduodenoscopy with gastric biopsies Pre Op Diagnosis: Melena. Anemia. Post-Op Diagnosis: Mild chronic gastritis. No duodenal or gastric ulcerations. No Meagan-Ibarra tear. 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
[2020-12-07] MEDS ORDERED: Lactated Ringers 1,000 ML IV SCH (11:00)
[2020-12-07] MEDS ORDERED: Ferrous Sulfate 325 MG Tab PO SCH (12:00)
[2020-12-07] MEDS: Digoxin 125 MCG Tab PO SCH (13:06)
[2020-12-07] MEDS: Ferrous Sulfate 325 MG Tab PO SCH (13:06)
--- NOTE | 2020-12-07 13:34 | PCM.PN ---
- General Info Date of Service: 12/07/20 - Review of Systems Systems Review Comment:: no shortness of breath, no bowel movement - Patient Data Vitals - Most Recent: Last Vital Signs Temp 36.6 C 12/07/20 10:43 Pulse 88 12/07/20 13:06 Resp 16 12/07/20 11:45 BP 149/55 H 12/07/20 11:45 Pulse Ox 92 L 12/07/20 11:45 Weight - Most Recent: 46.7 kg I&O - Last 24 Hours: Intake & Output 12/06/20 12/07/20 12/07/20 22:59 06:59 14:59 Intake Total 730 700 Output Total 1050 Balance -320 700 Lab Results Last 24 Hours: Laboratory Results - last 24 hr 12/06/20 12/06/20 12/06/20 Range/Units 12:41 14:36 14:36 WBC (4.0-11.0) K/uL RBC (4.30-5.90) M/uL Hgb 8.3 L (12.0-16.0) g/dL Hct 24.7 L (36.0-46.0) % MCV (80.0-98.0) fL MCH (27.0-32.0) pg MCHC (31.0-37.0) g/dL RDW Std Deviation (28.0-62.0) fl RDW Coeff of Lisa (11.0-15.0) % Plt Count (150-400) K/uL MPV (7.40-12.00) fL Neut % (Auto) (48.0-80.0) % Lymph % (Auto) (16.0-40.0) % [place] % (Auto) (0.0-15.0) % Eos % (Auto) (0.0-7.0) % Baso % (Auto) (0.0-1.5) % Neut # (Auto) (1.4-5.7) K/uL Lymph # (Auto) (0.6-2.4) K/uL [place] # (Auto) (0.0-0.8) K/uL Eos # (Auto) (0.0-0.7) K/uL Baso # (Auto) (0.0-0.1) K/uL Nucleated RBC % /100WBC Nucleated RBCs # K/uL VBG pH 7.46 H (7.31-7.41) VBG pCO2 42 (41-51) mmHG VBG pO2 < 30 mmHG VBG HCO3 30 H (23-28) mEq/L VBG Total CO2 29 (24-29) mmol/L VBG Base Excess 5.4 H (-2.0-3.0) Sodium (136-145) mmol/L Potassium (3.5-5.1) mmol/L Chloride (98-107) mmol/L Carbon Dioxide (21.0-32.0) mmol/L BUN (7.0-18.0) mg/dL Creatinine (0.6-1.0) mg/dL Est Cr Clr Drug Dosing mL/min Estimated GFR (MDRD) ml/min Glucose (74-106) mg/dL Calcium (8.5-10.1) mg/dL Iron (50-175) ug/dL TIBC (250-450) ug/dL % Saturation (20-55) % Transferrin Ferritin (8-252) ng/mL Total Bilirubin (0.2-1.0) mg/dL AST (15-37) IU/L ALT (14-63) IU/L Alkaline Phosphatase (46-116) U/L Troponin I (0.000-0.056) ng/mL Total Protein (6.4-8.2) g/dL Albumin (3.4-5.0) g/dL Globulin (2.6-4.0) g/dL Albumin/Globulin Ratio (0.9-1.6) Blood Type A POSITIVE Antibody Screen NEGATIVE 12/06/20 12/06/20 12/07/20 Range/Units 21:13 21:13 04:09 WBC 3.14 L 2.89 L (4.0-11.0) K/uL RBC 2.70 L 2.52 L (4.30-5.90) M/uL Hgb 8.6 L 8.0 L (12.0-16.0) g/dL Hct 25.2 L 23.3 L (36.0-46.0) % MCV 93.3 92.5 (80.0-98.0) fL MCH 31.9 31.7 (27.0-32.0) pg MCHC 34.1 34.3 (31.0-37.0) g/dL RDW Std Deviation 49.8 48.9 (28.0-62.0) fl RDW Coeff of Lisa 15 15 (11.0-15.0) % Plt Count 284 285 (150-400) K/uL MPV 8.30 8.40 (7.40-12.00) fL Neut % (Auto) 82.7 H (48.0-80.0) % Lymph % (Auto) 13.5 L (16.0-40.0) % [place] % (Auto) 3.8 (0.0-15.0) % Eos % (Auto) 0.0 (0.0-7.0) % Baso % (Auto) 0.0 (0.0-1.5) % Neut # (Auto) 2.4 (1.4-5.7) K/uL Lymph # (Auto) 0.4 L (0.6-2.4) K/uL [place] # (Auto) 0.1 (0.0-0.8) K/uL Eos # (Auto) 0.0 (0.0-0.7) K/uL Baso # (Auto) 0.0 (0.0-0.1) K/uL Nucleated RBC % 0.0 0.0 /100WBC Nucleated RBCs # 0 0 K/uL VBG pH (7.31-7.41) VBG pCO2 (41-51) mmHG VBG pO2 mmHG VBG HCO3 (23-28) mEq/L VBG Total CO2 (24-29) mmol/L VBG Base Excess (-2.0-3.0) Sodium (136-145) mmol/L Potassium (3.5-5.1) mmol/L Chloride (98-107) mmol/L Carbon Dioxide (21.0-32.0) mmol/L BUN (7.0-18.0) mg/dL Creatinine (0.6-1.0) mg/dL Est Cr Clr Drug Dosing mL/min Estimated GFR (MDRD) ml/min Glucose (74-106) mg/dL Calcium (8.5-10.1) mg/dL Iron (50-175) ug/dL TIBC (250-450) ug/dL % Saturation (20-55) % Transferrin Ferritin (8-252) ng/mL Total Bilirubin (0.2-1.0) mg/dL AST (15-37) IU/L ALT (14-63) IU/L Alkaline Phosphatase (46-116) U/L Troponin I < 0.050 (0.000-0.056) ng/mL Total Protein (6.4-8.2) g/dL Albumin (3.4-5.0) g/dL Globulin (2.6-4.0) g/dL Albumin/Globulin Ratio (0.9-1.6) Blood Type Antibody Screen 12/07/20 12/07/20 Range/Units 04:09 04:09 WBC (4.0-11.0) K/uL RBC (4.30-5.90) M/uL Hgb (12.0-16.0) g/dL Hct (36.0-46.0) % MCV (80.0-98.0) fL MCH (27.0-32.0) pg MCHC (31.0-37.0) g/dL RDW Std Deviation (28.0-62.0) fl RDW Coeff of Ilsa (11.0-15.0) % Plt Count (150-400) K/uL MPV (7.40-12.00) fL Neut % (Auto) (48.0-80.0) % Lymph % (Auto) (16.0-40.0) % [place] % (Auto) (0.0-15.0) % Eos % (Auto) (0.0-7.0) % Baso % (Auto) (0.0-1.5) % Neut # (Auto) (1.4-5.7) K/uL Lymph # (Auto) (0.6-2.4) K/uL [place] # (Auto) (0.0-0.8) K/uL Eos # (Auto) (0.0-0.7) K/uL Baso # (Auto) (0.0-0.1) K/uL Nucleated RBC % /100WBC Nucleated RBCs # K/uL VBG pH (7.31-7.41) VBG pCO2 (41-51) mmHG VBG pO2 mmHG VBG HCO3 (23-28) mEq/L VBG Total CO2 (24-29) mmol/L VBG Base Excess (-2.0-3.0) Sodium 135 L (136-145) mmol/L Potassium 4.2 (3.5-5.1) mmol/L Chloride 100 (98-107) mmol/L Carbon Dioxide 29.8 (21.0-32.0) mmol/L BUN 17 (7.0-18.0) mg/dL Creatinine 0.9 (0.6-1.0) mg/dL Est Cr Clr Drug Dosing 45.94 mL/min Estimated GFR (MDRD) > 60.0 ml/min Glucose 135 H (74-106) mg/dL Calcium 6.2 L (8.5-10.1) mg/dL Iron 9 L (50-175) ug/dL TIBC 270 (250-450) ug/dL % Saturation 3.33 L (20-55) % Transferrin 189.0 Ferritin 26 (8-252) ng/mL Total Bilirubin 0.3 (0.2-1.0) mg/dL AST 22 (15-37) IU/L ALT 19 (14-63) IU/L Alkaline Phosphatase 51 (46-116) U/L Troponin I (0.000-0.056) ng/mL Total Protein 3.7 L (6.4-8.2) g/dL Albumin 1.5 L (3.4-5.0) g/dL Globulin 2.2 L (2.6-4.0) g/dL Albumin/Globulin Ratio 0.7 L (0.9-1.6) Blood Type Antibody Screen Med Orders - Current: Current Medications Albuterol/Ipratropium (Albuterol/Ipratropium 3.0-0.5 Mg/3 Ml Neb Soln) 3 ml NEB Q6HRRT [facility] Last Admin: 12/07/20 12:41 Dose: 3 ml Documented by: Clonazepam (Clonazepam 0.5 Mg Tab) 0.125 - 0.25 mg PO QID@0800,1600,2000,2300 PRN PRN Reason: Tremors Last Admin: 12/06/20 23:00 Dose: 0.25 mg Documented by: Digoxin (Digoxin 125 Mcg Tab) 125 mcg PO DAILY@1300 [facility] Last Admin: 12/07/20 13:06 Dose: 125 mcg Documented by: Ferrous Sulfate (Ferrous Sulfate 325 Mg Tab) 325 mg PO DAILY [facility] Last Admin: 12/07/20 13:06 Dose: 325 mg Documented by: Furosemide (Furosemide 20 Mg Tab) 20 mg PO DAILY [facility] Hydroxyzine HCl (Hydroxyzine Hcl 25 Mg Tab) 25 mg PO QID PRN PRN Reason: Anxiety Pantoprazole Sodium 40 mg/ (Sodium Chloride) 10 mls @ 300 mls/hr IV Q12H [facility] Last Admin: 12/07/20 03:59 Dose: 300 mls/hr Documented by: Mupirocin (Mupirocin Oint 22 Gm Tube) 0 gm TOP BID [facility] Last Admin: 12/07/20 10:39 Dose: Not Given Documented by: Prednisone (Prednisone 5 Mg Tab) 5 mg PO BID [facility] Sodium Chloride (Sodium Chloride 0.9% 10 Ml Syringe) 10 ml FLUSH ASDIRECTED PRN PRN Reason: Keep Vein Open Last Admin: 12/06/20 12:20 Dose: 10 ml Documented by: Sodium Chloride (Sodium Chloride 0.9% 2.5 Ml Syringe) 2.5 ml FLUSH ASDIRECTED PRN PRN Reason: Keep Vein Open Last Admin: 12/06/20 12:19 Dose: 2.5 ml Documented by: Verapamil HCl (Verapamil 40 Mg Tab) 120 mg PO TID [facility] Last Admin: 12/07/20 06:44 Dose: 120 mg Documented by: Discontinued Medications Albuterol/Ipratropium (Albuterol/Ipratropium 3.0-0.5 Mg/3 Ml Neb Soln) 3 ml NEB ONETIME ONE Stop: 12/06/20 12:06 Last Admin: 12/06/20 12:19 Dose: 3 ml Documented by: Fentanyl (Fentanyl 100 Mcg/2 Ml Sdv) Confirm Administered Dose 100 mcg .ROUTE .STK-MED ONE Stop: 12/07/20 09:25 Ferrous Sulfate (Ferrous Sulfate 325 Mg Tab) 325 mg PO TIDMEALS [facility] Pantoprazole Sodium 80 mg/ (Sodium Chloride) 20 mls @ 420 mls/hr IVPUSH ONETIME ONE Stop: 12/06/20 15:42 Last Admin: 12/06/20 16:00 Dose: 420 mls/hr Documented by: Lactated Ringer's (Ringers, Lactated) 1,000 mls @ 125 mls/hr IV ASDIRECTED [facility] Iopamidol (Iopamidol 755 Mg/Ml 500 Ml Multipack Bottle) 87 ml IVPUSH ONETIME STA Stop: 12/06/20 14:54 Last Admin: 12/06/20 14:54 Dose: 87 ml Documented by: Lidocaine (Lidocaine 2% 5 Ml Sdv) Confirm Administered Dose 5 ml .ROUTE .STK-MED ONE Stop: 12/07/20 09:25 Methylprednisolone Sodium Succinate (Methylprednisolone Sodium Succinate 125 Mg/2 Ml Sdv) 125 mg IVPUSH ONETIME ONE Stop: 12/06/20 12:06 Last Admin: 12/06/20 12:19 Dose: 125 mg Documented by: Midazolam HCl (Midazolam 1 Mg/Ml 2 Ml Sdv) Confirm Administered Dose 2 mg .ROUTE .STK-MED ONE Stop: 12/07/20 09:24 Propofol (Propofol 200 Mg/20 Ml Sdv) Confirm Administered Dose 200 mg .ROUTE .STK-MED ONE Stop: 12/07/20 09:24 Sucralfate (Sucralfate Suspension 1 Gm/10 Ml Cup) 1 gm PO TIDAC [facility] Last Admin: 12/06/20 22:35 Dose: Not Given Documented by: Sucralfate (Sucralfate Suspension 1 Gm/10 Ml Cup) 1 gm PO TIDAC [facility] Last Admin: 12/07/20 13:05 Dose: Not Given Documented by: - Exam General: Alert, Oriented Neck: Supple Lungs: Clear to Auscultation, Normal Respiratory Effort Cardiovascular: Regular Rate, Regular Rhythm GI/Abdominal Exam: Soft, Non-Tender, No Distention Extremities: Non-Tender, No Pedal Edema Skin: Warm, Dry, Intact - Patient Data Lab Results Last 24 hrs: Laboratory Results - last 24 hr 12/06/20 12/06/20 12/06/20 Range/Units 12:41 14:36 14:36 WBC (4.0-11.0) K/uL RBC (4.30-5.90) M/uL Hgb 8.3 L (12.0-16.0) g/dL Hct 24.7 L (36.0-46.0) % MCV (80.0-98.0) fL MCH (27.0-32.0) pg MCHC (31.0-37.0) g/dL RDW Std Deviation (28.0-62.0) fl RDW Coeff of Lisa (11.0-15.0) % Plt Count (150-400) K/uL MPV (7.40-12.00) fL Neut % (Auto) (48.0-80.0) % Lymph % (Auto) (16.0-40.0) % [place] % (Auto) (0.0-15.0) % Eos % (Auto) (0.0-7.0) % Baso % (Auto) (0.0-1.5) % Neut # (Auto) (1.4-5.7) K/uL Lymph # (Auto) (0.6-2.4) K/uL [place] # (Auto) (0.0-0.8) K/uL Eos # (Auto) (0.0-0.7) K/uL Baso # (Auto) (0.0-0.1) K/uL Nucleated RBC % /100WBC Nucleated RBCs # K/uL VBG pH 7.46 H (7.31-7.41) VBG pCO2 42 (41-51) mmHG VBG pO2 < 30 mmHG VBG HCO3 30 H (23-28) mEq/L VBG Total CO2 29 (24-29) mmol/L VBG Base Excess 5.4 H (-2.0-3.0) Sodium (136-145) mmol/L Potassium (3.5-5.1) mmol/L Chloride (98-107) mmol/L Carbon Dioxide (21.0-32.0) mmol/L BUN (7.0-18.0) mg/dL Creatinine (0.6-1.0) mg/dL Est Cr Clr Drug Dosing mL/min Estimated GFR (MDRD) ml/min Glucose (74-106) mg/dL Calcium (8.5-10.1) mg/dL Iron (50-175) ug/dL TIBC (250-450) ug/dL % Saturation (20-55) % Transferrin Ferritin (8-252) ng/mL Total Bilirubin (0.2-1.0) mg/dL AST (15-37) IU/L ALT (14-63) IU/L Alkaline Phosphatase (46-116) U/L Troponin I (0.000-0.056) ng/mL Total Protein (6.4-8.2) g/dL Albumin (3.4-5.0) g/dL Globulin (2.6-4.0) g/dL Albumin/Globulin Ratio (0.9-1.6) Blood Type A POSITIVE Antibody Screen NEGATIVE 12/06/20 12/06/20 12/07/20 Range/Units 21:13 21:13 04:09 WBC 3.14 L 2.89 L (4.0-11.0) K/uL RBC 2.70 L 2.52 L (4.30-5.90) M/uL Hgb 8.6 L 8.0 L (12.0-16.0) g/dL Hct 25.2 L 23.3 L (36.0-46.0) % MCV 93.3 92.5 (80.0-98.0) fL MCH 31.9 31.7 (27.0-32.0) pg MCHC 34.1 34.3 (31.0-37.0) g/dL RDW Std Deviation 49.8 48.9 (28.0-62.0) fl RDW Coeff of Lisa 15 15 (11.0-15.0) % Plt Count 284 285 (150-400) K/uL MPV 8.30 8.40 (7.40-12.00) fL Neut % (Auto) 82.7 H (48.0-80.0) % Lymph % (Auto) 13.5 L (16.0-40.0) % [place] % (Auto) 3.8 (0.0-15.0) % Eos % (Auto) 0.0 (0.0-7.0) % Baso % (Auto) 0.0 (0.0-1.5) % Neut # (Auto) 2.4 (1.4-5.7) K/uL Lymph # (Auto) 0.4 L (0.6-2.4) K/uL [place] # (Auto) 0.1 (0.0-0.8) K/uL Eos # (Auto) 0.0 (0.0-0.7) K/uL Baso # (Auto) 0.0 (0.0-0.1) K/uL Nucleated RBC % 0.0 0.0 /100WBC Nucleated RBCs # 0 0 K/uL VBG pH (7.31-7.41) VBG pCO2 (41-51) mmHG VBG pO2 mmHG VBG HCO3 (23-28) mEq/L VBG Total CO2 (24-29) mmol/L VBG Base Excess (-2.0-3.0) Sodium (136-145) mmol/L Potassium (3.5-5.1) mmol/L Chloride (98-107) mmol/L Carbon Dioxide (21.0-32.0) mmol/L BUN (7.0-18.0) mg/dL Creatinine (0.6-1.0) mg/dL Est Cr Clr Drug Dosing mL/min Estimated GFR (MDRD) ml/min Glucose (74-106) mg/dL Calcium (8.5-10.1) mg/dL Iron (50-175) ug/dL TIBC (250-450) ug/dL % Saturation (20-55) % Transferrin Ferritin (8-252) ng/mL Total Bilirubin (0.2-1.0) mg/dL AST (15-37) IU/L ALT (14-63) IU/L Alkaline Phosphatase (46-116) U/L Troponin I < 0.050 (0.000-0.056) ng/mL Total Protein (6.4-8.2) g/dL Albumin (3.4-5.0) g/dL Globulin (2.6-4.0) g/dL Albumin/Globulin Ratio (0.9-1.6) Blood Type Antibody Screen 12/07/20 12/07/20 Range/Units 04:09 04:09 WBC (4.0-11.0) K/uL RBC (4.30-5.90) M/uL Hgb (12.0-16.0) g/dL Hct (36.0-46.0) % MCV (80.0-98.0) fL MCH (27.0-32.0) pg MCHC (31.0-37.0) g/dL RDW Std Deviation (28.0-62.0) fl RDW Coeff of Lisa (11.0-15.0) % Plt Count (150-400) K/uL MPV (7.40-12.00) fL Neut % (Auto) (48.0-80.0) % Lymph % (Auto) (16.0-40.0) % [place] % (Auto) (0.0-15.0) % Eos % (Auto) (0.0-7.0) % Baso % (Auto) (0.0-1.5) % Neut # (Auto) (1.4-5.7) K/uL Lymph # (Auto) (0.6-2.4) K/uL [place] # (Auto) (0.0-0.8) K/uL Eos # (Auto) (0.0-0.7) K/uL Baso # (Auto) (0.0-0.1) K/uL Nucleated RBC % /100WBC Nucleated RBCs # K/uL VBG pH (7.31-7.41) VBG pCO2 (41-51) mmHG VBG pO2 mmHG VBG HCO3 (23-28) mEq/L VBG Total CO2 (24-29) mmol/L VBG Base Excess (-2.0-3.0) Sodium 135 L (136-145) mmol/L Potassium 4.2 (3.5-5.1) mmol/L Chloride 100 (98-107) mmol/L Carbon Dioxide 29.8 (21.0-32.0) mmol/L BUN 17 (7.0-18.0) mg/dL Creatinine 0.9 (0.6-1.0) mg/dL Est Cr Clr Drug Dosing 45.94 mL/min Estimated GFR (MDRD) > 60.0 ml/min Glucose 135 H (74-106) mg/dL Calcium 6.2 L (8.5-10.1) mg/dL Iron 9 L (50-175) ug/dL TIBC 270 (250-450) ug/dL % Saturation 3.33 L (20-55) % Transferrin 189.0 Ferritin 26 (8-252) ng/mL Total Bilirubin 0.3 (0.2-1.0) mg/dL AST 22 (15-37) IU/L ALT 19 (14-63) IU/L Alkaline Phosphatase 51 (46-116) U/L Troponin I (0.000-0.056) ng/mL Total Protein 3.7 L (6.4-8.2) g/dL Albumin 1.5 L (3.4-5.0) g/dL Globulin 2.2 L (2.6-4.0) g/dL Albumin/Globulin Ratio 0.7 L (0.9-1.6) Blood Type Antibody Screen Result Diagrams: 12/07/20 04:09 12/07/20 04:09 Sepsis Event Note - Evaluation Sepsis Screening Result: No Definite Risk - Focused Exam Vital Signs: Vital Signs Temp Pulse Pulse Resp BP Pulse Ox 12/07/20 13:06 88 12/07/20 11:45 86 16 149/55 H 92 L 12/07/20 11:15 85 17 126/58 L 87 L 12/07/20 11:03 88 20 119/63 96 12/07/20 10:58 82 16 121/60 93 L 12/07/20 10:53 84 14 103/56 L 99 12/07/20 10:48 84 13 108/58 L 100 12/07/20 10:43 36.6 C 79 14 108/56 L 100 12/07/20 08:15 36.5 C 90 16 108/55 L 93 L 12/07/20 06:42 99 125/61 12/07/20 04:00 36.6 C 86 16 115/51 L 91 L - Problem List & Annotations (1) Anticoagulant long-term use SNOMED Code(s): 870650950 Code(s): Z79.01 - [facility] (CURRENT) USE OF ANTICOAGULANTS Status: Acute Current Visit: Yes (2) COPD exacerbation SNOMED Code(s): 453561440 Code(s): J44.1 - CHRONIC OBSTRUCTIVE PULMONARY DISEASE W (ACUTE) EXACERBATION Status: Acute Priority: Medium Current Visit: Yes (3) GI bleeding SNOMED Code(s): 14399385 Code(s): K92.2 - GASTROINTESTINAL HEMORRHAGE, UNSPECIFIED Status: Acute Priority: High Current Visit: Yes - Problem List Review Problem List Initiated/Reviewed/Updated: Yes - My Orders Last 24 Hours: My Active Orders 12/06/20 16:46 Telemetry Monitoring [Cardiac Monitoring] [RC] Q8H 12/06/20 21:00 ClonazePAM [KlonoPIN] 0.125 - 0.25 mg PO QID@0800,1600,2000,2300 PRN Mupirocin Oint [Bactroban Oint] 0 gm TOP BID 12/06/20 21:53 hydrOXYzine HCL [Atarax] 25 mg PO QID PRN 12/06/20 22:00 Verapamil [Calan] 120 mg PO TID 12/06/20 22:02 Obtain Past Medical Record [OM.PC] Routine 12/06/20 22:11 RT Aerosol Therapy [RC] ASDIRECTED Consult to Physician [CONS] Routine 12/06/20 22:12 Notify Provider Consults [RC] ASDIRECTED 12/06/20 22:13 Antiembolic Devices [RC] PER UNIT ROUTINE VTE/DVT Education [RC] PER UNIT ROUTINE Vital Signs [RC] Q4H Sequential Compression Device [OM.PC] Routine Resuscitation Status Routine 12/07/20 00:00 Albuterol/Ipratropium [DuoNeb 3.0-0.5 MG/3 ML] 3 ml NEB Q6HRRT 12/07/20 03:00 Pantoprazole [ProTONIX IV] 40 mg Sodium Chloride 0.9% [Normal Saline] 10 ml IV Q12H 12/07/20 11:30 Ferrous Sulfate 325 mg PO DAILY 12/07/20 13:00 Digoxin [Lanoxin] 125 mcg PO DAILY@1300 12/07/20 17:00 CBC WITH AUTO DIFF [HEME] Q12H 12/07/20 21:00 predniSONE 5 mg PO BID 12/08/20 05:00 CBC WITH AUTO DIFF [HEME] Q12H 12/08/20 05:11 COMPREHENSIVE METABOLIC PN,CMP [CHEM] AM 12/08/20 09:00 Furosemide [Lasix] 20 mg PO DAILY - Plan Plan:: 65 yo female who presents with shortness of breath likely due to COPD exacerbation and found to have anemia likely secondary to GI bleed COPD: has received solumedrol, duonebs, acute exacerbation appears to have quickly resolved GI bleed: Dr. Cook was consulted, and performed EGD which did not reveal any evidence of bleeding. will continue protonix, trend Hgb, hold Eliquis. If hgb stable will discharge home tomorrow. Will start iron supplementation for iron deficiency anemia
--- NOTE | 2020-12-07 14:36 | OR ---
SURGEON: Nando Cook M.D. DATE OF PROCEDURE: 12/07/2020 OPERATION PERFORMED: Esophagogastroduodenoscopy with gastric biopsy. PRIMARY SURGEON: Nando Cook M.D. 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 ANESTHESIA: MAC. ASA CLASSIFICATION: III. PREOPERATIVE DIAGNOSES: Melenic stool with anemia. POSTOPERATIVE DIAGNOSES: Mild chronic gastritis with no blood in the upper tract. DESCRIPTION OF PROCEDURE: The patient was taken to the endoscopy room and positioned on the endoscopy table in the supine position. Time-out was called for appropriate identification of the patient and procedure. Monitored anesthesia care was provided. The bite block was placed between the patient's teeth. The gastroscope was inserted through the bite block and advanced into the oropharynx and subsequently through the esophagus and stomach into the duodenum, where examination was now carried out in a retrograde fashion. The duodenum showed no acute inflammatory changes or ulcerations. No blood was seen in the duodenum. The gastroscope was withdrawn to the distal stomach, which did show mild chronic gastritis and suggestion of an old healed ulcer with no acute bleeding. No blood was noted in the stomach. Antral biopsies were obtained to look for the presence of Helicobacter pylori. The gastroscope was then retroflexed to visualize the proximal stomach. No tumors or polyps were seen and there were no ulcerations. The gastroscope was then straightened and slowly withdrawn carefully visualizing the greater and lesser curvatures. Again, no ulcerations were noted. The GE junction was well defined and showed no acute inflammatory changes or ulcerations. The esophagus itself demonstrated good contractility. No mid or proximal lesions were identified. The vocal cords were briefly visualized as the scope was withdrawn and noted to move symmetrically. No vocal cord lesions were identified. The gastroscope was then removed with the patient having tolerated the procedure well. She was taken to recovery room in stable condition. MAGALI / CARMELITA /[id number]
[2020-12-07] MEDS: Pantoprazole 40 MG in Sodium Chloride 0.9% 10 ML IV SCH (14:48)
[2020-12-07] MEDS: ClonazePAM 0.5 MG Tab PO PRN ×3 (15:03→22:53)
[2020-12-07] MEDS: predniSONE 5 MG Tab PO SCH (20:42)
[2020-12-08] MEDS: Pantoprazole 40 MG in Sodium Chloride 0.9% 10 ML IV SCH ×2 (02:49→14:35)
[2020-12-08] MEDS: Albuterol/Ipratropium 3.0-0.5 MG/3 ML Neb Soln NEB SCH ×3 (06:20→17:07)
[2020-12-08 07:05] LABS: CARBON DIOXIDE,CO2 28.8 mmol/L (21.0-32.0)
[2020-12-08] MEDS: Ferrous Sulfate 325 MG Tab PO SCH (08:36)
[2020-12-08] MEDS: predniSONE 5 MG Tab PO SCH (08:36)
[2020-12-08] MEDS: Mupirocin Oint 22 GM Tube TOP SCH (08:37)
[2020-12-08] MEDS: ClonazePAM 0.5 MG Tab PO PRN (08:39)
[2020-12-08] MEDS ORDERED: Furosemide 20 MG Tab PO SCH (09:00)
[2020-12-08] MEDS: Digoxin 125 MCG Tab PO SCH (13:22)
--- NOTE | 2020-12-08 14:42 | PCM.DCSUM1 ---
Discharge Summary - Discharge Data Discharge Date: 12/08/20 Discharge Disposition: DC/Tfer to Acute Hospital 02 Condition: Stable - Referral to Home Health Primary Care Physician: Ari Epstein MD - Patient Summary/Data Operative Procedure(s) Performed: Esophagogastroduodenoscopy with gastric biopsies Consults: Consultations 12/06/20 22:11 Consult to Physician [CONS] Routine Hospital Course: 65 yo female with pmh of Rheumatoid arthritis, COPD, spastic torticollis, atrial fibrillation on Eliquis and methotrexate who presents to the ED with complaints of shortness of breath for the past four days. She also reported dark stools. She was noted to be satting 95% on room air with HR in the 100s in normal sinus. Hgb was 9.6, and two hour repeat it was 8.3. Last month her Hgb was 11.8. CT chest was negative for PE, atelectasis/fibrosis of posterior medial lungs, cardiomegaly with no CHF. Her last EGD, colonoscopy was six months ago which did not reveal any signs of bleeding. IN the ED she was given soumedrol and duonebs with resolution of her shortness of breath. It was felt her shortness of breath was likely due to acute bronchitis which resolved quickly. She was admitted due to concerns of anemia in the setting of melanotic stools. Patient was placed on protonix. Dr. Cook performed EGD which did not reveal a source of bleeding. Her Eliquis has been held since 12/06/20. Her Hgb today is 7.4 and she is still having dark stools. I spoke with patient regarding waiting to see if bleeding will stop with the discontinuation of Eliquis but patient prefers to be transferred for GI consultation. I spoke with Dr. Kessler in [facility] who has accepted the patient. We will transfuse a unit of blood prior to transfer. - Discharge Plan Home Medications: Home Meds Tiotropium Br/Olodaterol HCl [Stiolto Respimat Inhal [place]] 2 puff INH QAM 03/31/18 [History] Apixaban [Eliquis] 5 mg PO BID 10/26/18 [History] Digoxin 125 mcg PO QAM 10/26/18 [History] Folic Acid 1 mg PO DAILY 10/26/18 [History] Methotrexate 10 mg PO MOFR@1800 10/26/18 [History] Potassium Chloride [Klor-Con] 20 meq PO DAILY 10/26/18 [History] Verapamil HCl [Verapamil] 120 mg PO TID 10/26/18 [History] predniSONE [Prednisone] 5 mg PO BID 10/26/18 [History] Omeprazole 20 mg PO DAILY 05/14/20 [History] ClonazePAM [KlonoPIN] 0.5 mg PO TID PRN 12/06/20 [History] Furosemide 20 mg PO DAILY 12/06/20 [History] Mupirocin Oint [Bactroban Oint] 22 gm TP BID 12/06/20 [History] hydrOXYzine HCL [Hydroxyzine HCl] 25 mg PO QID PRN 12/06/20 [History] Patient Handouts: Chronic Obstructive Pulmonary Disease Exacerbation, [id number], Shortness of Breath, Adult, [id number], Gastrointestinal Bleeding, Lkyw-we-Jmol, COPD and Physical Activity Referrals: Ari Epstein MD [Primary Care Provider] - - Discharge Summary/Plan Comment DC Time >30 min.: Yes Total # of Minutes for Discharge Time: 35 - Patient Data Vitals - Most Recent: Last Vital Signs Temp 36.4 C 12/08/20 12:00 Pulse 99 12/08/20 13:22 Resp 18 12/08/20 12:00 BP 118/66 12/08/20 12:00 Pulse Ox 95 12/08/20 13:23 Weight - Most Recent: 46.7 kg I&O - Last 24 hours: Intake & Output 12/07/20 12/08/20 12/08/20 22:59 06:59 14:59 Intake Total 780 1410 Output Total 600 1600 Balance 180 -190 Lab Results - Last 24 hrs: Laboratory Results - last 24 hr 12/06/20 12/07/20 12/08/20 Range/Units 12:41 17:05 05:35 WBC 7.29 6.35 (4.0-11.0) K/uL RBC 2.54 L 2.37 L (4.30-5.90) M/uL Hgb 8.0 L 7.4 L (12.0-16.0) g/dL Hct 24.0 L 22.3 L (36.0-46.0) % MCV 94.5 94.1 (80.0-98.0) fL MCH 31.5 31.2 (27.0-32.0) pg MCHC 33.3 33.2 (31.0-37.0) g/dL RDW Std Deviation 51.2 50.8 (28.0-62.0) fl RDW Coeff of Lisa 15 15 (11.0-15.0) % Plt Count 315 301 (150-400) K/uL MPV 8.40 8.30 (7.40-12.00) fL Neut % (Auto) 89.2 H 84.7 H (48.0-80.0) % Lymph % (Auto) 5.1 L 8.8 L (16.0-40.0) % [place] % (Auto) 5.6 4.4 (0.0-15.0) % Eos % (Auto) 0.0 1.9 (0.0-7.0) % Baso % (Auto) 0.1 0.2 (0.0-1.5) % Neut # (Auto) 6.5 H 5.4 (1.4-5.7) K/uL Lymph # (Auto) 0.4 L 0.6 (0.6-2.4) K/uL [place] # (Auto) 0.4 0.3 (0.0-0.8) K/uL Eos # (Auto) 0.0 0.1 (0.0-0.7) K/uL Baso # (Auto) 0.0 0.0 (0.0-0.1) K/uL Nucleated RBC % 0.4 0.4 /100WBC Nucleated RBCs # 0 0 K/uL Sodium (136-145) mmol/L Potassium (3.5-5.1) mmol/L Chloride (98-107) mmol/L Carbon Dioxide (21.0-32.0) mmol/L BUN (7.0-18.0) mg/dL Creatinine (0.6-1.0) mg/dL Est Cr Clr Drug Dosing mL/min Estimated GFR (MDRD) ml/min Glucose (74-106) mg/dL Calcium (8.5-10.1) mg/dL Total Bilirubin (0.2-1.0) mg/dL AST (15-37) IU/L ALT (14-63) IU/L Alkaline Phosphatase (46-116) U/L Total Protein (6.4-8.2) g/dL Albumin (3.4-5.0) g/dL Globulin (2.6-4.0) g/dL Albumin/Globulin Ratio (0.9-1.6) Blood Type A POSITIVE Antibody Screen NEGATIVE Crossmatch See Detail 12/08/20 Range/Units 05:35 WBC (4.0-11.0) K/uL RBC (4.30-5.90) M/uL Hgb (12.0-16.0) g/dL Hct (36.0-46.0) % MCV (80.0-98.0) fL MCH (27.0-32.0) pg MCHC (31.0-37.0) g/dL RDW Std Deviation (28.0-62.0) fl RDW Coeff of Lisa (11.0-15.0) % Plt Count (150-400) K/uL MPV (7.40-12.00) fL Neut % (Auto) (48.0-80.0) % Lymph % (Auto) (16.0-40.0) % [place] % (Auto) (0.0-15.0) % Eos % (Auto) (0.0-7.0) % Baso % (Auto) (0.0-1.5) % Neut # (Auto) (1.4-5.7) K/uL Lymph # (Auto) (0.6-2.4) K/uL [place] # (Auto) (0.0-0.8) K/uL Eos # (Auto) (0.0-0.7) K/uL Baso # (Auto) (0.0-0.1) K/uL Nucleated RBC % /100WBC Nucleated RBCs # K/uL Sodium 135 L (136-145) mmol/L Potassium 4.0 (3.5-5.1) mmol/L Chloride 101 (98-107) mmol/L Carbon Dioxide 28.8 (21.0-32.0) mmol/L BUN 27 H (7.0-18.0) mg/dL Creatinine 1.1 H (0.6-1.0) mg/dL Est Cr Clr Drug Dosing 37.59 mL/min Estimated GFR (MDRD) 49.8 ml/min Glucose 94 (74-106) mg/dL Calcium 6.3 L (8.5-10.1) mg/dL Total Bilirubin 0.2 (0.2-1.0) mg/dL AST 23 (15-37) IU/L ALT 17 (14-63) IU/L Alkaline Phosphatase 46 (46-116) U/L Total Protein 3.7 L (6.4-8.2) g/dL Albumin 1.4 L (3.4-5.0) g/dL Globulin 2.3 L (2.6-4.0) g/dL Albumin/Globulin Ratio 0.6 L (0.9-1.6) Blood Type Antibody Screen Crossmatch Med Orders - Current: Current Medications Albuterol/Ipratropium (Albuterol/Ipratropium 3.0-0.5 Mg/3 Ml Neb Soln) 3 ml NEB Q6HRRT [facility] Last Admin: 12/08/20 11:35 Dose: 3 ml Documented by: Clonazepam (Clonazepam 0.5 Mg Tab) 0.125 mg PO 0800,1600,2000 PRN PRN Reason: TREMORS Clonazepam (Clonazepam 0.5 Mg Tab) 0.25 mg PO DAILY@2300 PRN PRN Reason: TREMORS Digoxin (Digoxin 125 Mcg Tab) 125 mcg PO DAILY@1300 [facility] Last Admin: 12/08/20 13:22 Dose: 125 mcg Documented by: Ferrous Sulfate (Ferrous Sulfate 325 Mg Tab) 325 mg PO DAILY [facility] Last Admin: 12/08/20 08:36 Dose: 325 mg Documented by: Furosemide (Furosemide 20 Mg Tab) 20 mg PO DAILY [facility] Last Admin: 12/08/20 08:36 Dose: 20 mg Documented by: Hydroxyzine HCl (Hydroxyzine Hcl 25 Mg Tab) 25 mg PO QID PRN PRN Reason: Anxiety Pantoprazole Sodium 40 mg/ (Sodium Chloride) 10 mls @ 300 mls/hr IV Q12H [facility] Last Admin: 12/08/20 02:49 Dose: 300 mls/hr Documented by: Mupirocin (Mupirocin Oint 22 Gm Tube) 0 gm TOP BID [facility] Last Admin: 12/08/20 08:37 Dose: 1 applic Documented by: Methotrexate 2.5 Mg 4 each PO MoFr@1800 [facility] Last Admin: 12/07/20 17:46 Dose: 4 each Documented by: Prednisone (Prednisone 5 Mg Tab) 5 mg PO BID [facility] Last Admin: 12/08/20 08:36 Dose: 5 mg Documented by: Sodium Chloride (Sodium Chloride 0.9% 10 Ml Syringe) 10 ml FLUSH ASDIRECTED PRN PRN Reason: Keep Vein Open Last Admin: 12/06/20 12:20 Dose: 10 ml Documented by: Sodium Chloride (Sodium Chloride 0.9% 2.5 Ml Syringe) 2.5 ml FLUSH ASDIRECTED PRN PRN Reason: Keep Vein Open Last Admin: 12/06/20 12:19 Dose: 2.5 ml Documented by: Verapamil HCl (Verapamil 40 Mg Tab) 120 mg PO TID [facility] Last Admin: 12/08/20 13:21 Dose: 120 mg Documented by: Discontinued Medications Albuterol/Ipratropium (Albuterol/Ipratropium 3.0-0.5 Mg/3 Ml Neb Soln) 3 ml NEB ONETIME ONE Stop: 12/06/20 12:06 Last Admin: 12/06/20 12:19 Dose: 3 ml Documented by: Clonazepam (Clonazepam 0.5 Mg Tab) 0.125 - 0.25 mg PO QID@0800,1600,2000,2300 PRN PRN Reason: Tremors Last Admin: 12/08/20 08:39 Dose: 0.125 mg Documented by: Fentanyl (Fentanyl 100 Mcg/2 Ml Sdv) Confirm Administered Dose 100 mcg .ROUTE .STK-MED ONE Stop: 12/07/20 09:25 Ferrous Sulfate (Ferrous Sulfate 325 Mg Tab) 325 mg PO TIDMEALS [facility] Pantoprazole Sodium 80 mg/ (Sodium Chloride) 20 mls @ 420 mls/hr IVPUSH ONETIME ONE Stop: 12/06/20 15:42 Last Admin: 12/06/20 16:00 Dose: 420 mls/hr Documented by: Pantoprazole Sodium 40 mg/ (Sodium Chloride) 10 mls @ 300 mls/hr IV Q12H [facility] Last Admin: 12/07/20 03:59 Dose: 300 mls/hr Documented by: Lactated Ringer's (Ringers, Lactated) 1,000 mls @ 125 mls/hr IV ASDIRECTED [facility] Iopamidol (Iopamidol 755 Mg/Ml 500 Ml Multipack Bottle) 87 ml IVPUSH ONETIME STA Stop: 12/06/20 14:54 Last Admin: 12/06/20 14:54 Dose: 87 ml Documented by: Lidocaine (Lidocaine 2% 5 Ml Sdv) Confirm Administered Dose 5 ml .ROUTE .STK-MED ONE Stop: 12/07/20 09:25 Methylprednisolone Sodium Succinate (Methylprednisolone Sodium Succinate 125 Mg/2 Ml Sdv) 125 mg IVPUSH ONETIME ONE Stop: 12/06/20 12:06 Last Admin: 12/06/20 12:19 Dose: 125 mg Documented by: Midazolam HCl (Midazolam 1 Mg/Ml 2 Ml Sdv) Confirm Administered Dose 2 mg .ROUTE .STK-MED ONE Stop: 12/07/20 09:24 Propofol (Propofol 200 Mg/20 Ml Sdv) Confirm Administered Dose 200 mg .ROUTE .STK-MED ONE Stop: 12/07/20 09:24 Sucralfate (Sucralfate Suspension 1 Gm/10 Ml Cup) 1 gm PO TIDAC [facility] Last Admin: 12/06/20 22:35 Dose: Not Given Documented by: Sucralfate (Sucralfate Suspension 1 Gm/10 Ml Cup) 1 gm PO TIDAC [facility] Last Admin: 12/07/20 13:05 Dose: Not Given Documented by:
[2020-12-08] MEDS ORDERED: ClonazePAM 0.5 MG Tab PO PRN ×2 (16:00→23:00)
[2020-12-08 19:35] VITALS: BP 124/70; PULSE 90
== END 2020-12-08 17:45 ==
LOC: MW.ED 11:28 → MW.MS 16:45
PROVIDERS: ADMIT Internal Medicine; ATTEND Internal Medicine
DX: K29.00 Acute gastritis without bleeding (principal); K29.50 Unspecified chronic gastritis without bleeding; D64.9 Anemia, unspecified; J44.9 Chronic obstructive pulmonary disease, unspecified; M06.9 Rheumatoid arthritis, unspecified; I48.91 Unspecified atrial fibrillation; F17.210 Nicotine dependence, cigarettes, uncomplicated; Z79.01 Long term (current) use of anticoagulants; Z79.899 Other long term (current) drug therapy; Z88.2 Allergy status to sulfonamides; Z88.8 Allergy status to other drugs, medicaments and biological substances; Z20.822 Contact with and (suspected) exposure to COVID-19
CPT/HCPCS: 0240U; 36415; 36430; 43239; 71275; 80053; 81003; 82728; 82803; 83550; 83690; 84484; 85014; 85018; 85025; 85027; 86850; 86900; 86901; 86920; 86921; 86922; 93005; 94640; 96374; 96375; 96376; 99285; A9270; C9113; G0378; J2250; J2704; J2930; J3010; J7512; P9016; Q9967; 00731; J7620-GY

== ENCOUNTER 2021-02-03 21:28 | Observation (INO) | payer BC, MEDICARE ==
[2021-02-03] MEDS ORDERED: Sodium Chloride 0.9% 2.5 ML Syringe FLUSH PRN (21:39)
--- NOTE | 2021-02-03 21:43 | EDM.PDOC ---
ED HPI GENERAL MEDICAL PROBLEM - General Stated Complaint: SOB, WEAK, TIRED, TROUBLE WALKING Time Seen by Provider: 02/03/21 21:33 - History of Present Illness INITIAL COMMENTS - FREE TEXT/NARRATIVE: History of present illness: [] The patient was getting increasingly short of breath for a week. Over the last few days she has had bright red blood per rectum. She has some vague abdominal pain as well. She feels weak and dizzy. She was markedly short of breath when the ambulance arrived and they gave her albuterol and ipratropium and she is doing better. Patient was admitted here in November. After a few nights in a transfusion of blood as well as an endoscopy to show that there was no obvious site of bleeding in her GI tract she was transferred to [place] where she stayed about 3 days. She was found to have ulcers on the upper GI endoscopy there and sent home on pantoprazole. She is on Eliquis again. She complains also of painful leg swelling. Review of systems: As per history of present illness and below otherwise all systems reviewed and negative. Past medical history: As per history of present illness and as reviewed below otherwise noncontributory. Surgical history: As per history of present illness and as reviewed below otherwise noncontributory. Social history: No reported history of drug or alcohol abuse. Family history: As per history of present illness and as reviewed below otherwise noncontributory. Physical exam: Constitutional - well developed, well-nourished and in no acute distress HEENT - normocephalic, no evidence of trauma - external nose and mouth normal - no mass in neck and no JVD - mucosae moist EYES - full EOM, PERRL, no icterus - no evidence of inflammation, injection, or drainage Respiratory - no respiratory distress, equal bilateral expansion, lungs clear to auscultation and no abnormal lung sounds Cardiovascular - Regular Rhythm with S1 and S2 appreciated and no murmur, gallop or rub. GI - abdomen soft without distension or organomegaly - normal bowel sounds - no guard or rebound Musculoskeletal patient has the deformity of the joints in the hands consistent with her rheumatoid arthritis-otherwise no gross deformity of long bones or joints -there is pitting edema which is tender below the knee in both lower extremities. Neurologic - Alert and oriented times four - CN II-XII grossly intact - motor sensory and coordination symmetrically normal Psychiatric - appropriate mood and affect with normal thought content Hematologic - No petechiae or purpura - mucosa appropriate color and sclera not pale - normal nail bed color and refill Integument -legs are mottled and cool. No rash or evidence of trauma - normal turgor Diagnostics: [] Therapeutics: [] Impression: [] Plan: [] Definitive disposition and diagnosis as appropriate pending reevaluation and re view of above. - Related Data Allergies Allergy/AdvReac Type Severity Reaction Status Date / Time metoclopramide [From Reglan] Allergy "dont take Verified 12/06/20 11:55 due to my tremors" Sulfa (Sulfonamide Allergy lips swell Verified 12/06/20 11:55 Antibiotics) & went numb Home Meds: Home Meds Tiotropium Br/Olodaterol HCl [Stiolto Respimat Inhal [place]] 2 puff INH QAM 03/31/18 [History] Apixaban [Eliquis] 5 mg PO BID 10/26/18 [History] Digoxin 125 mcg PO QAM 10/26/18 [History] Folic Acid 1 mg PO DAILY 10/26/18 [History] Methotrexate 10 mg PO MOFR@1800 10/26/18 [History] Potassium Chloride [Klor-Con] 20 meq PO DAILY 10/26/18 [History] Verapamil HCl [Verapamil] 120 mg PO TID 10/26/18 [History] predniSONE [Prednisone] 5 mg PO BID 10/26/18 [History] Omeprazole 20 mg PO DAILY 05/14/20 [History] ClonazePAM [KlonoPIN] 0.5 mg PO TID PRN 12/06/20 [History] Furosemide 20 mg PO DAILY 12/06/20 [History] Mupirocin Oint [Bactroban Oint] 22 gm TP BID 12/06/20 [History] hydrOXYzine HCL [Hydroxyzine HCl] 25 mg PO QID PRN 12/06/20 [History] Past Medical History HEENT History: Reports: Cataract, Impaired Vision, Other (See Below) Other HEENT History: wears glasses Cardiovascular History: Reports: Afib, Hypertension Other Cardiovascular History: states A-Fib has converted but still takes medications Respiratory History: Reports: COPD Gastrointestinal History: Reports: Colon Polyp, GERD, Other (See Below) Other Gastrointestinal History: Ulcerated colon at age 8, patietn states was hospitalized Genitourinary History: Reports: None [employer]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 [employer]EF[employer] 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: Musculoskeletal History: Reports: Fracture, Neck Pain, Chronic, RA Other Musculoskeletal History: has RA in hands, hx of fx finger, hx of Spasmotic Torticollis Neurological History: Reports: Other (See Below) Other Neuro History: spasmatic torticollis; states head shakes and has tremors (dystonia) Psychiatric History: Reports: None Endocrine/Metabolic History: Reports: None Hematologic History: Reports: None Immunologic History: Reports: Immunosuppression Other Immunologic History: states has MRSA with the infection right buttock open sore Oncologic (Cancer) History: Reports: None Dermatologic History: Reports: Other (See Below) Other Dermatologic History: states has a scabbed sore to right buttock - Infectious Disease History Infectious Disease History: Reports: Chicken Pox, MRSA, Mumps Other Infectious Disease History: open sore right buttock - Past Surgical History Head Surgeries/Procedures: Reports: None HEENT Surgical History: Reports: Cataract Surgery, Tonsillectomy Other HEENT Surgeries/Procedures: Catarct surgery in 2019 Cardiovascular Surgical History: Reports: None Respiratory Surgical History: Reports: None GI Surgical History: Reports: Colonoscopy Female Surgical History: Reports: Section Other Female Surgeries/Procedures: x2 Endocrine Surgical History: Reports: None Neurological Surgical History: Reports: Other (See Below) Other Neurological Surgeries/Procedures: hx of Cervical Spine Nerve Ablation for neck spasms (20 years ago), Selective denervation Musculoskeletal Surgical History: Reports: None Oncologic Surgical History: Reports: None Dermatological Surgical History: Reports: Other (See Below) Social & Family History - Family History Family Medical History: No Pertinent Family History - Caffeine Use Caffeine Use: Reports: Soda Caffeine Use Comment: Rarely drinks soda, once per month. ED ROS GENERAL - Review of Systems Review Of Systems: Comprehensive ROS is negative, except as noted in HPI. ED EXAM, GENERAL - Physical Exam Exam: See Below Free Text/Narrative:: My physical exam is in the HPI #1 Interpretation EKG Interpretation Comments: EKG done 02/03/2021 at 9:54 PM shows a sinus tachycardia heart rate 100 AR 120 QT duration 359 [place] XIV low voltage with abnormal R wave regression and nonspecific ST and T abnormalities. Compared to 12/06/2020 no significant change impression no acute injury Course - Vital Signs Last Recorded V/S: Last Vital Signs Temp 37.1 C 02/03/21 21:44 Pulse 100 02/03/21 22:50 Resp 18 02/03/21 22:50 BP 110/60 02/03/21 22:50 Pulse Ox 98 02/03/21 22:50 - Orders/Labs/Meds Orders: Active Orders 24 hr Category Date Time Status Admission Status [Patient Status] [ADT] Stat ADT 02/03/21 22:49 Ordered Furosemide [Lasix] Med 02/03/21 22:50 Once 20 mg IVPUSH ONETIME ONE Pantoprazole [ProTONIX] Med 02/03/21 22:51 Once 40 mg IVPUSH NOW ONE Sodium Chloride 0.9% [Saline Flush] Med 02/03/21 21:39 Active 10 ml FLUSH ASDIRECTED PRN Sodium Chloride 0.9% [Saline Flush] Med 02/03/21 21:39 Active 2.5 ml FLUSH ASDIRECTED PRN methylPREDNISolone Sod Succ [Solu-MEDROL] Med 02/03/21 22:50 Once 125 mg IVPUSH ONETIME ONE Saline Lock Insert [OM.PC] Stat Oth 02/03/21 21:39 Ordered Medication Orders Sodium Chloride (Sodium Chloride 0.9% 10 Ml Syringe) 10 ml FLUSH ASDIRECTED PRN PRN Reason: Keep Vein Open Last Admin: 02/03/21 21:53 Dose: 10 ml Documented by: ANDREA Sodium Chloride (Sodium Chloride 0.9% 2.5 Ml Syringe) 2.5 ml FLUSH ASDIRECTED PRN PRN Reason: Keep Vein Open Last Admin: 02/03/21 21:53 Dose: 2.5 ml Documented by: ANDREA Labs: Laboratory Tests 02/03/21 02/03/21 02/03/21 Range/Units 21:44 21:44 21:44 WBC 4.66 (4.0-11.0) K/uL RBC 3.56 L (4.30-5.90) M/uL Hgb 11.2 L (12.0-16.0) g/dL Hct 33.4 L (36.0-46.0) % MCV 93.8 (80.0-98.0) fL MCH 31.5 (27.0-32.0) pg MCHC 33.5 (31.0-37.0) g/dL RDW Std Deviation 67.8 H (28.0-62.0) fl RDW Coeff of Lisa 20 H (11.0-15.0) % Plt Count 260 (150-400) K/uL MPV 9.30 (7.40-12.00) fL Add Manual Diff YES Neutrophils % (Manual) 86 H (48.0-80.0) % Band Neutrophils % 2 % Lymphocytes % (Manual) 6 L (16.0-40.0) % Monocytes % (Manual) 5 (0.0-15.0) % Eosinophils % (Manual) 1 (0.0-7.0) % Nucleated RBC % 0.0 /100WBC Absolute Seg Neuts 4.0 (1.4-5.7) Band Neutrophils # 0.1 Lymphocytes # (Manual) 0.3 L (0.6-2.4) Monocytes # (Manual) 0.2 (0.0-0.8) Eosinophils # (Manual) 0.0 (0.0-0.7) Nucleated RBCs # 0 K/uL Sodium 132 L (136-145) mmol/L Potassium 3.8 (3.5-5.1) mmol/L Chloride 96 L (98-107) mmol/L Carbon Dioxide 28.6 (21.0-32.0) mmol/L BUN 27 H (7.0-18.0) mg/dL Creatinine 1.0 (0.6-1.0) mg/dL Est Cr Clr Drug Dosing 45.38 mL/min Estimated GFR (MDRD) 55.6 ml/min Glucose 107 H (74-106) mg/dL Calcium 7.0 L (8.5-10.1) mg/dL Total Bilirubin 0.2 (0.2-1.0) mg/dL AST 47 H (15-37) IU/L ALT 30 (14-63) IU/L Alkaline Phosphatase 80 (46-116) U/L Troponin I < 0.050 (0.000-0.056) ng/mL B-Natriuretic Peptide 71 (<100) PG/ML Total Protein 3.7 L (6.4-8.2) g/dL Albumin 1.4 L (3.4-5.0) g/dL Globulin 2.3 L (2.6-4.0) g/dL Albumin/Globulin Ratio 0.6 L (0.9-1.6) Lipase 206 (73-393) U/L Urine Color Urine Appearance Urine pH (5.0-8.0) Ur Specific [place] (1.001-1.035) Urine Protein (NEGATIVE) mg/dL Urine Glucose (UA) (NEGATIVE) mg/dL Urine Ketones (NEGATIVE) mg/dL Urine Occult Blood (NEGATIVE) Urine Nitrite (NEGATIVE) Urine Bilirubin (NEGATIVE) Urine Urobilinogen (<2.0) EU/dL Ur Leukocyte Esterase (NEGATIVE) Influenza Type A RNA (NEGATIVE) Influenza Type B RNA (NEGATIVE) SARS-CoV-2 RNA (CRUZ) (NEGATIVE) 02/03/21 02/03/21 Range/Units 21:44 22:01 WBC (4.0-11.0) K/uL RBC (4.30-5.90) M/uL Hgb (12.0-16.0) g/dL Hct (36.0-46.0) % MCV (80.0-98.0) fL MCH (27.0-32.0) pg MCHC (31.0-37.0) g/dL RDW Std Deviation (28.0-62.0) fl RDW Coeff of Lisa (11.0-15.0) % Plt Count (150-400) K/uL MPV (7.40-12.00) fL Add Manual Diff Neutrophils % (Manual) (48.0-80.0) % Band Neutrophils % % Lymphocytes % (Manual) (16.0-40.0) % Monocytes % (Manual) (0.0-15.0) % Eosinophils % (Manual) (0.0-7.0) % Nucleated RBC % /100WBC Absolute Seg Neuts (1.4-5.7) Band Neutrophils # Lymphocytes # (Manual) (0.6-2.4) Monocytes # (Manual) (0.0-0.8) Eosinophils # (Manual) (0.0-0.7) Nucleated RBCs # K/uL Sodium (136-145) mmol/L Potassium (3.5-5.1) mmol/L Chloride (98-107) mmol/L Carbon Dioxide (21.0-32.0) mmol/L BUN (7.0-18.0) mg/dL Creatinine (0.6-1.0) mg/dL Est Cr Clr Drug Dosing mL/min Estimated GFR (MDRD) ml/min Glucose (74-106) mg/dL Calcium (8.5-10.1) mg/dL Total Bilirubin (0.2-1.0) mg/dL AST (15-37) IU/L ALT (14-63) IU/L Alkaline Phosphatase (46-116) U/L Troponin I (0.000-0.056) ng/mL B-Natriuretic Peptide (<100) PG/ML Total Protein (6.4-8.2) g/dL Albumin (3.4-5.0) g/dL Globulin (2.6-4.0) g/dL Albumin/Globulin Ratio (0.9-1.6) Lipase (73-393) U/L Urine Color YELLOW Urine Appearance CLEAR Urine pH 6.0 (5.0-8.0) Ur Specific [place] 1.010 (1.001-1.035) Urine Protein NEGATIVE (NEGATIVE) mg/dL Urine Glucose (UA) NEGATIVE (NEGATIVE) mg/dL Urine Ketones NEGATIVE (NEGATIVE) mg/dL Urine Occult Blood NEGATIVE (NEGATIVE) Urine Nitrite NEGATIVE (NEGATIVE) Urine Bilirubin NEGATIVE (NEGATIVE) Urine Urobilinogen 0.2 (<2.0) EU/dL Ur Leukocyte Esterase NEGATIVE (NEGATIVE) Influenza Type A RNA NEGATIVE (NEGATIVE) Influenza Type B RNA NEGATIVE (NEGATIVE) SARS-CoV-2 RNA (CRUZ) NEGATIVE (NEGATIVE) Meds: Medications Generic Name Dose Route Start Last Admin Trade Name Freq PRN Reason Stop Dose Admin Sodium Chloride 10 ml 02/03/21 21:39 02/03/21 21:53 Sodium Chloride 0.9% 10 Ml Syringe FLUSH 10 ml ASDIRECTED PRN Administration Keep Vein Open Sodium Chloride 2.5 ml 02/03/21 21:39 02/03/21 21:53 Sodium Chloride 0.9% 2.5 Ml Syringe FLUSH 2.5 ml ASDIRECTED PRN Administration Keep Vein Open - Re-Assessments/Exams Free Text/Narrative Re-Assessment/Exam: 02/03/21 22:13 Patient was ambulatory in the emergency department. Chest x-ray compared to 05 November shows essentially no change. There may be a little more atelectasis or slight effusion in the left base which is perhaps slightly increased since the prior film. 02/03/21 22:25 Patient says she is short of breath when she walks. She tolerates ambulation in the emergency department well. She is very concerned about the swelling all the way to her thigh of both lower extremities. She is recently had her furosemide increased to 60 mg a day and it seems not to be helping with the swelling. 02/03/21 22:51 Will be difficult to reduce her edema with an albumin of 1.4. This is chronic however. Increasing her diuretic is not seem to help recently. Discussed with Dr. Ganesh Ochoa and he agreed to put her in observation status. We will try to address nutritional issues and other possible causes of hypoalbuminemia to try to help her with her edema and traumatic get her exacerbation of COPD under cont rol to where she can resume her normal home activities. Departure - Departure Time of Disposition: 22:53 Disposition: Refer to Observation Condition: Good Clinical Impression: COPD exacerbation, Recurrent gastrointestinal hemorrhage, Edema due to hypoalbuminemia - Discharge Information Sepsis Event Note (ED) - Focused Exam Vital Signs: Vital Signs Temp Pulse Resp BP Pulse Ox 02/03/21 22:50 100 18 110/60 98 02/03/21 21:44 37.1 C 103 H 22 H 132/66 97 - My Orders Last 24 Hours: My Active Orders 02/03/21 21:39 Sodium Chloride 0.9% [Saline Flush] 10 ml FLUSH ASDIRECTED PRN Sodium Chloride 0.9% [Saline Flush] 2.5 ml FLUSH ASDIRECTED PRN Saline Lock Insert [OM.PC] Stat 02/03/21 22:49 Admission Status [Patient Status] [ADT] Stat 02/03/21 22:50 Furosemide [Lasix] 20 mg IVPUSH ONETIME ONE methylPREDNISolone Sod Succ [Solu-MEDROL] 125 mg IVPUSH ONETIME ONE 02/03/21 22:51 Pantoprazole [ProTONIX] 40 mg IVPUSH NOW ONE - Assessment/Plan Last 24 Hours: My Active Orders 02/03/21 21:39 Sodium Chloride 0.9% [Saline Flush] 10 ml FLUSH ASDIRECTED PRN Sodium Chloride 0.9% [Saline Flush] 2.5 ml FLUSH ASDIRECTED PRN Saline Lock Insert [OM.PC] Stat 02/03/21 22:49 Admission Status [Patient Status] [ADT] Stat 02/03/21 22:50 Furosemide [Lasix] 20 mg IVPUSH ONETIME ONE methylPREDNISolone Sod Succ [Solu-MEDROL] 125 mg IVPUSH ONETIME ONE 02/03/21 22:51 Pantoprazole [ProTONIX] 40 mg IVPUSH NOW ONE
[2021-02-03] MEDS: Sodium Chloride 0.9% 10 ML Syringe FLUSH PRN (21:53)
--- NOTE | 2021-02-03 22:07 | CR ---
INDICATION: Dyspnea TECHNIQUE: Chest radiograph 1 view COMPARISON: 11/05/2020 FINDINGS: Mediastinum: The mediastinum is normal in appearance. Moderate cardiomegaly is present without interval change. Lung: Minimal bibasilar atelectasis and small bilateral pleural effusions are noted. No pneumothorax is identified. Bone and Soft tissue: Unremarkable for age. IMPRESSIONS: 1. Minimal bibasilar atelectasis and small bilateral pleural effusions are noted. 2. Moderate cardiomegaly is present without interval change. Dictated by Sebastian Copeland MD @ 02/03/2021 10:06:48 PM Dictated by: Sebastian Copeland MD @ 02/03/2021 22:06:52 (Electronically Signed)
[2021-02-03 22:18] LABS: BLOOD UREA NITROGEN,BUN 27 mg/dL (7.0-18.0); CARBON DIOXIDE,CO2 28.6 mmol/L (21.0-32.0); CHLORIDE,CL 96 mmol/L (98-107); GLUCOSE RANDOM 107 mg/dL (74-106); LIPASE 206 U/L (73-393); POTASSIUM,K 3.8 mmol/L (3.5-5.1); SODIUM,NA 132 mmol/L (136-145)
[2021-02-03 22:33] LABS: CORONAVIRUS COVID-19 NAA NEGATIVE (NEGATIVE); INFLUENZA A NAA NEGATIVE (NEGATIVE); INFLUENZA B NAA NEGATIVE (NEGATIVE)
[2021-02-03] MEDS ORDERED: Furosemide 20 MG/2 ML VIAL IVPUSH ONE (22:50)
[2021-02-03] MEDS ORDERED: methylPREDNISolone Sodium Succinate 125 MG/2 ML SDV IVPUSH ONE (22:50)
[2021-02-03] MEDS ORDERED: Pantoprazole 40 MG/10 ML Syringe IVPUSH ONE (22:51)
--- NOTE | 2021-02-04 00:23 | PCM.HP.2 ---
H&P History of Present Illness - General Date of Service: 02/04/21 Admit Problem/Dx: Admission Diagnosis/Problem Admission Diagnosis/Problem Dyspnea - History of Present Illness Initial Comments - Free Text/Narative: 65 yo female with pmh of Rheumatoid arthritis, COPD, spastic torticollis, atrial fibrillation on Eliquis who presents to the ED with complaints of shortness of breath for the past week. She fells like it is more in her chest this time compared to her last admit She reports wheezing. She denies any fevers. She does have lower extremity edema. During her last admission she was transfered to [place] and they performed another EGD and discovered ulcers. She does report occasion bright red blood per rectum. - Related Data Allergies/Adverse Reactions: Allergies Allergy/AdvReac Type Severity Reaction Status Date / Time metoclopramide [From Reglan] Allergy "dont take Verified 12/06/20 11:55 due to my tremors" Sulfa (Sulfonamide Allergy lips swell Verified 12/06/20 11:55 Antibiotics) & went numb Home Medications: Home Meds Tiotropium Br/Olodaterol HCl [Stiolto Respimat Inhal [place]] 2 puff INH QAM 03/31/18 [History] Apixaban [Eliquis] 5 mg PO BID 10/26/18 [History] Digoxin 125 mcg PO QAM 10/26/18 [History] Folic Acid 1 mg PO DAILY 10/26/18 [History] Methotrexate 10 mg PO MOFR@1800 10/26/18 [History] Potassium Chloride [Klor-Con] 20 meq PO DAILY 10/26/18 [History] Verapamil HCl [Verapamil] 120 mg PO TID 10/26/18 [History] predniSONE [Prednisone] 5 mg PO BID 10/26/18 [History] Omeprazole 20 mg PO DAILY 05/14/20 [History] ClonazePAM [KlonoPIN] 0.5 mg PO TID PRN 12/06/20 [History] Furosemide 20 mg PO DAILY 12/06/20 [History] Mupirocin Oint [Bactroban Oint] 22 gm TP BID 12/06/20 [History] hydrOXYzine HCL [Hydroxyzine HCl] 25 mg PO QID PRN 12/06/20 [History] Past Medical History HEENT History: Reports: Cataract, Impaired Vision, Other (See Below) Other HEENT History: wears glasses Cardiovascular History: Reports: Afib, Hypertension Other Cardiovascular History: states A-Fib has converted but still takes medications Respiratory History: Reports: COPD Gastrointestinal History: Reports: Colon Polyp, GERD, Other (See Below) Other Gastrointestinal History: Ulcerated colon at age 8, patietn states was hospitalized Genitourinary History: Reports: None CLINICAL DATA ABSTRACTOR History: Reports: Musculoskeletal History: Reports: Fracture, Neck Pain, Chronic, RA Other Musculoskeletal History: has RA in hands, hx of fx finger, hx of Spasmotic Torticollis Neurological History: Reports: Other (See Below) Other Neuro History: spasmatic torticollis; states head shakes and has tremors (dystonia) Psychiatric History: Reports: None Endocrine/Metabolic History: Reports: None Hematologic History: Reports: None Immunologic History: Reports: Immunosuppression Other Immunologic History: states has MRSA with the infection right buttock open sore Oncologic (Cancer) History: Reports: None Dermatologic History: Reports: Other (See Below) Other Dermatologic History: states has a scabbed sore to right buttock - Infectious Disease History Infectious Disease History: Reports: Chicken Pox, MRSA, Mumps Other Infectious Disease History: open sore right buttock - Past Surgical History Head Surgeries/Procedures: Reports: None HEENT Surgical History: Reports: Cataract Surgery, Tonsillectomy Other HEENT Surgeries/Procedures: Catarct surgery in 2019 Cardiovascular Surgical History: Reports: None Respiratory Surgical History: Reports: None GI Surgical History: Reports: Colonoscopy Female Surgical History: Reports: Section Other Female Surgeries/Procedures: x2 Endocrine Surgical History: Reports: None Neurological Surgical History: Reports: Other (See Below) Other Neurological Surgeries/Procedures: hx of Cervical Spine Nerve Ablation for neck spasms (20 years ago), Selective denervation Musculoskeletal Surgical History: Reports: None Oncologic Surgical History: Reports: None Dermatological Surgical History: Reports: Other (See Below) Social & Family History - Family History Family Medical History: No Pertinent Family History - Tobacco Use Tobacco Use Status *Q: Never Tobacco User - Caffeine Use Caffeine Use: Reports: None Caffeine Use Comment: Rarely drinks soda, once per month. - Recreational Drug Use Recreational Drug Use: No H&P Review of Systems - Review of Systems: Review Of Systems: Comprehensive ROS is negative, except as noted in HPI. Exam - Exam Exam: See Below - Vital Signs Vital Signs: Last Vital Signs Temp 37.1 C 02/03/21 21:44 Pulse 89 02/03/21 23:46 Resp 18 02/03/21 23:46 BP 100/54 L 02/03/21 23:46 Pulse Ox 97 02/03/21 23:46 Weight: 51.256 kg - Exam General: Alert, Oriented HEENT: Mucosa Moist & [place] Lungs: Clear to Auscultation, Normal Respiratory Effort Cardiovascular: Regular Rate, Regular Rhythm GI/Abdominal Exam: Normal Bowel Sounds, Soft, Non-Tender Extremities: Non-Tender, Pedal Edema (+2) Skin: Warm, Dry, Intact Neurological: No: Focal Deficit - Patient Data Lab Results Last 24 hrs: Laboratory Results - last 24 hr 02/03/21 02/03/21 02/03/21 Range/Units 21:44 21:44 21:44 WBC 4.66 (4.0-11.0) K/uL RBC 3.56 L (4.30-5.90) M/uL Hgb 11.2 L (12.0-16.0) g/dL Hct 33.4 L (36.0-46.0) % MCV 93.8 (80.0-98.0) fL MCH 31.5 (27.0-32.0) pg MCHC 33.5 (31.0-37.0) g/dL RDW Std Deviation 67.8 H (28.0-62.0) fl RDW Coeff of Lisa 20 H (11.0-15.0) % Plt Count 260 (150-400) K/uL MPV 9.30 (7.40-12.00) fL Add Manual Diff YES Neutrophils % (Manual) 86 H (48.0-80.0) % Band Neutrophils % 2 % Lymphocytes % (Manual) 6 L (16.0-40.0) % Monocytes % (Manual) 5 (0.0-15.0) % Eosinophils % (Manual) 1 (0.0-7.0) % Nucleated RBC % 0.0 /100WBC Absolute Seg Neuts 4.0 (1.4-5.7) Band Neutrophils # 0.1 Lymphocytes # (Manual) 0.3 L (0.6-2.4) Monocytes # (Manual) 0.2 (0.0-0.8) Eosinophils # (Manual) 0.0 (0.0-0.7) Nucleated RBCs # 0 K/uL Sodium 132 L (136-145) mmol/L Potassium 3.8 (3.5-5.1) mmol/L Chloride 96 L (98-107) mmol/L Carbon Dioxide 28.6 (21.0-32.0) mmol/L BUN 27 H (7.0-18.0) mg/dL Creatinine 1.0 (0.6-1.0) mg/dL Est Cr Clr Drug Dosing 45.38 mL/min Estimated GFR (MDRD) 55.6 ml/min Glucose 107 H (74-106) mg/dL Calcium 7.0 L (8.5-10.1) mg/dL Total Bilirubin 0.2 (0.2-1.0) mg/dL AST 47 H (15-37) IU/L ALT 30 (14-63) IU/L Alkaline Phosphatase 80 (46-116) U/L Troponin I < 0.050 (0.000-0.056) ng/mL B-Natriuretic Peptide 71 (<100) PG/ML Total Protein 3.7 L (6.4-8.2) g/dL Albumin 1.4 L (3.4-5.0) g/dL Globulin 2.3 L (2.6-4.0) g/dL Albumin/Globulin Ratio 0.6 L (0.9-1.6) Lipase 206 (73-393) U/L Urine Color Urine Appearance Urine pH (5.0-8.0) Ur Specific [place] (1.001-1.035) Urine Protein (NEGATIVE) mg/dL Urine Glucose (UA) (NEGATIVE) mg/dL Urine Ketones (NEGATIVE) mg/dL Urine Occult Blood (NEGATIVE) Urine Nitrite (NEGATIVE) Urine Bilirubin (NEGATIVE) Urine Urobilinogen (<2.0) EU/dL Ur Leukocyte Esterase (NEGATIVE) Influenza Type A RNA (NEGATIVE) Influenza Type B RNA (NEGATIVE) SARS-CoV-2 RNA (CRUZ) (NEGATIVE) 02/03/21 02/03/21 Range/Units 21:44 22:01 WBC (4.0-11.0) K/uL RBC (4.30-5.90) M/uL Hgb (12.0-16.0) g/dL Hct (36.0-46.0) % MCV (80.0-98.0) fL MCH (27.0-32.0) pg MCHC (31.0-37.0) g/dL RDW Std Deviation (28.0-62.0) fl RDW Coeff of Lisa (11.0-15.0) % Plt Count (150-400) K/uL MPV (7.40-12.00) fL Add Manual Diff Neutrophils % (Manual) (48.0-80.0) % Band Neutrophils % % Lymphocytes % (Manual) (16.0-40.0) % Monocytes % (Manual) (0.0-15.0) % Eosinophils % (Manual) (0.0-7.0) % Nucleated RBC % /100WBC Absolute Seg Neuts (1.4-5.7) Band Neutrophils # Lymphocytes # (Manual) (0.6-2.4) Monocytes # (Manual) (0.0-0.8) Eosinophils # (Manual) (0.0-0.7) Nucleated RBCs # K/uL Sodium (136-145) mmol/L Potassium (3.5-5.1) mmol/L Chloride (98-107) mmol/L Carbon Dioxide (21.0-32.0) mmol/L BUN (7.0-18.0) mg/dL Creatinine (0.6-1.0) mg/dL Est Cr Clr Drug Dosing mL/min Estimated GFR (MDRD) ml/min Glucose (74-106) mg/dL Calcium (8.5-10.1) mg/dL Total Bilirubin (0.2-1.0) mg/dL AST (15-37) IU/L ALT (14-63) IU/L Alkaline Phosphatase (46-116) U/L Troponin I (0.000-0.056) ng/mL B-Natriuretic Peptide (<100) PG/ML Total Protein (6.4-8.2) g/dL Albumin (3.4-5.0) g/dL Globulin (2.6-4.0) g/dL Albumin/Globulin Ratio (0.9-1.6) Lipase (73-393) U/L Urine Color YELLOW Urine Appearance CLEAR Urine pH 6.0 (5.0-8.0) Ur Specific [place] 1.010 (1.001-1.035) Urine Protein NEGATIVE (NEGATIVE) mg/dL Urine Glucose (UA) NEGATIVE (NEGATIVE) mg/dL Urine Ketones NEGATIVE (NEGATIVE) mg/dL Urine Occult Blood NEGATIVE (NEGATIVE) Urine Nitrite NEGATIVE (NEGATIVE) Urine Bilirubin NEGATIVE (NEGATIVE) Urine Urobilinogen 0.2 (<2.0) EU/dL Ur Leukocyte Esterase NEGATIVE (NEGATIVE) Influenza Type A RNA NEGATIVE (NEGATIVE) Influenza Type B RNA NEGATIVE (NEGATIVE) SARS-CoV-2 RNA (CRUZ) NEGATIVE (NEGATIVE) Result Diagrams: 02/03/21 21:44 02/03/21 21:44 Sepsis Event Note - Evaluation Sepsis Screening Result: No Definite Risk - Focused Exam Vital Signs: Vital Signs Temp Pulse Resp BP Pulse Ox 02/03/21 23:46 89 18 100/54 L 97 02/03/21 22:50 100 18 110/60 98 02/03/21 21:44 37.1 C 103 H 22 H 132/66 97 - Problem List (1) COPD exacerbation SNOMED Code(s): 081360431 ICD Code: J44.1 - CHRONIC OBSTRUCTIVE PULMONARY DISEASE W (ACUTE) EXACE RBATION Status: Acute Priority: Medium Current Visit: Yes (2) Edema due to hypoalbuminemia SNOMED Code(s): 748854908, 625202268 ICD Code: E88.09 - OTH DISORDERS OF PLASMA-PROTEIN METABOLISM, NEC Status: Acute Current Visit: Yes Problem List Initiated/Reviewed/Updated: Yes Orders Last 24hrs: Active Orders 24 hr Category Date Time Status Admission Status [Patient Status] [ADT] Stat ADT 02/03/21 22:49 Active Antiembolic Devices [RC] PER UNIT ROUTINE Care 02/04/21 00:11 Active Oxygen Therapy [RC] PRN Care 02/04/21 00:11 Active RT Aerosol Therapy [RC] ASDIRECTED Care 02/04/21 00:15 Active Up ad Cristine [RC] ASDIRECTED Care 02/04/21 00:11 Active VTE/DVT Education [RC] PER UNIT ROUTINE Care 02/04/21 00:11 Active Vital Signs [RC] Q4H Care 02/04/21 00:11 Active Consult to Meteorology Professor [CONS] Routine Cons 02/04/21 00:11 Active Regular Diet [DIET] Diet 02/04/21 Breakfast Active Albuterol/Ipratropium [DuoNeb 3.0-0.5 MG/3 ML] Med 02/04/21 06:00 Ordered 3 ml NEB Q6HRRT ClonazePAM [KlonoPIN] Med 02/04/21 00:09 Pending 0.5 mg PO TID PRN Digoxin [Lanoxin] Med 02/04/21 09:00 Pending 125 mcg PO QAM Methotrexate Med 02/04/21 18:00 Pending 10 mg PO MOFR@1800 Omeprazole [Omeprazole] Med 02/04/21 09:00 Pending 20 mg PO DAILY Sodium Chloride 0.9% [Saline Flush] Med 02/03/21 21:39 Active 10 ml FLUSH ASDIRECTED PRN Sodium Chloride 0.9% [Saline Flush] Med 02/03/21 21:39 Active 2.5 ml FLUSH ASDIRECTED PRN Verapamil HCl [Verapamil] Med 02/04/21 06:00 Pending 120 mg PO TID Saline Lock Insert [OM.PC] Stat Oth 02/03/21 21:39 Ordered Sequential Compression Device [OM.PC] Per Unit Routine Oth 02/04/21 00:11 Ordered Resuscitation Status Routine Resus Stat 02/04/21 00:11 Ordered Medication Orders Albuterol/Ipratropium (Albuterol/Ipratropium 3.0-0.5 Mg/3 Ml Neb Soln) 3 ml NEB Q6HRRT ANGELIA Clonazepam (Clonazepam 0.5 Mg Tab) 0.5 mg PO TID PRN PRN Reason: Tremors Digoxin (Digoxin 125 Mcg Tab) 125 mcg PO QAM ANGELIA Methotrexate (Methotrexate 2.5 Mg Tab) 10 mg PO MOFR@1800 ANGELIA Non-Formulary Medication (Verapamil Hcl [Verapamil]) 120 mg PO TID ANGELIA Non-Formulary Medication (Omeprazole [Omeprazole]) 20 mg PO DAILY ANGELIA Sodium Chloride (Sodium Chloride 0.9% 10 Ml Syringe) 10 ml FLUSH ASDIRECTED PRN PRN Reason: Keep Vein Open Last Admin: 02/03/21 21:53 Dose: 10 ml Documented by: ANDREA Sodium Chloride (Sodium Chloride 0.9% 2.5 Ml Syringe) 2.5 ml FLUSH ASDIRECTED PRN PRN Reason: Keep Vein Open Last Admin: 02/03/21 21:53 Dose: 2.5 ml Documented by: ANDREA Assessment/Plan Comment:: 65 yo female admitted for COPD exacerbation. CODP exacerbation: received solumedrol in ED, kt leg edema: received lasix, could consider echocardiogram Holding eliquis due to history of GI bleed.
[2021-02-04] MEDS ORDERED: Furosemide 20 MG/2 ML VIAL ONE (01:36)
[2021-02-04] MEDS: Albuterol/Ipratropium 3.0-0.5 MG/3 ML Neb Soln NEB SCH ×5 (05:54→22:17)
[2021-02-04] MEDS: Digoxin 125 MCG Tab PO SCH (08:25)
[2021-02-04] MEDS ORDERED: Pantoprazole 40 MG Tab.CR PO SCH (09:00)
[2021-02-04] MEDS: ClonazePAM 0.5 MG Tab PO SCH ×3 (14:41→23:13)
[2021-02-04] MEDS ORDERED: Furosemide 40 MG in Sodium Chloride 0.9% 50 ML IV SCH (16:00)
[2021-02-04] MEDS: Furosemide 40 MG/4 ML VIAL IV SCH (16:33)
--- NOTE | 2021-02-04 17:44 | PCM.PN ---
- General Info Date of Service: 02/04/21 Subjective Update: Pt's dyspnea is better today. She still has lower extremity edema. She has a low albumin mainly due to poor oral intake. She does complain of having some blood per rectum every so often. - Patient Data Vitals - Most Recent: Last Vital Signs Temp 98.8 F 02/04/21 14:38 Pulse 94 02/04/21 14:38 Resp 18 02/04/21 14:38 BP 131/74 02/04/21 14:38 Pulse Ox 95 02/04/21 14:38 Weight - Most Recent: 121 lb 0.54 oz I&O - Last 24 Hours: Intake & Output 02/04/21 02/04/21 02/04/21 06:59 14:59 22:59 Intake Total 350 1100 Output Total 1250 600 Balance -900 500 Lab Results Last 24 Hours: Laboratory Results - last 24 hr 02/03/21 02/03/21 02/03/21 Range/Units 21:44 21:44 21:44 WBC 4.66 (4.0-11.0) K/uL RBC 3.56 L (4.30-5.90) M/uL Hgb 11.2 L (12.0-16.0) g/dL Hct 33.4 L (36.0-46.0) % MCV 93.8 (80.0-98.0) fL MCH 31.5 (27.0-32.0) pg MCHC 33.5 (31.0-37.0) g/dL RDW Std Deviation 67.8 H (28.0-62.0) fl RDW Coeff of Lisa 20 H (11.0-15.0) % Plt Count 260 (150-400) K/uL MPV 9.30 (7.40-12.00) fL Add Manual Diff YES Neutrophils % (Manual) 86 H (48.0-80.0) % Band Neutrophils % 2 % Lymphocytes % (Manual) 6 L (16.0-40.0) % Monocytes % (Manual) 5 (0.0-15.0) % Eosinophils % (Manual) 1 (0.0-7.0) % Nucleated RBC % 0.0 /100WBC Absolute Seg Neuts 4.0 (1.4-5.7) Band Neutrophils # 0.1 Lymphocytes # (Manual) 0.3 L (0.6-2.4) Monocytes # (Manual) 0.2 (0.0-0.8) Eosinophils # (Manual) 0.0 (0.0-0.7) Nucleated RBCs # 0 K/uL Sodium 132 L (136-145) mmol/L Potassium 3.8 (3.5-5.1) mmol/L Chloride 96 L (98-107) mmol/L Carbon Dioxide 28.6 (21.0-32.0) mmol/L BUN 27 H (7.0-18.0) mg/dL Creatinine 1.0 (0.6-1.0) mg/dL Est Cr Clr Drug Dosing 45.38 mL/min Estimated GFR (MDRD) 55.6 ml/min Glucose 107 H (74-106) mg/dL Calcium 7.0 L (8.5-10.1) mg/dL Total Bilirubin 0.2 (0.2-1.0) mg/dL AST 47 H (15-37) IU/L ALT 30 (14-63) IU/L Alkaline Phosphatase 80 (46-116) U/L Troponin I < 0.050 (0.000-0.056) ng/mL B-Natriuretic Peptide 71 (<100) PG/ML Total Protein 3.7 L (6.4-8.2) g/dL Albumin 1.4 L (3.4-5.0) g/dL Globulin 2.3 L (2.6-4.0) g/dL Albumin/Globulin Ratio 0.6 L (0.9-1.6) Lipase 206 (73-393) U/L Urine Color Urine Appearance Urine pH (5.0-8.0) Ur Specific [place] (1.001-1.035) Urine Protein (NEGATIVE) mg/dL Urine Glucose (UA) (NEGATIVE) mg/dL Urine Ketones (NEGATIVE) mg/dL Urine Occult Blood (NEGATIVE) Urine Nitrite (NEGATIVE) Urine Bilirubin (NEGATIVE) Urine Urobilinogen (<2.0) EU/dL Ur Leukocyte Esterase (NEGATIVE) Influenza Type A RNA (NEGATIVE) Influenza Type B RNA (NEGATIVE) SARS-CoV-2 RNA (CRUZ) (NEGATIVE) 02/03/21 02/03/21 Range/Units 21:44 22:01 WBC (4.0-11.0) K/uL RBC (4.30-5.90) M/uL Hgb (12.0-16.0) g/dL Hct (36.0-46.0) % MCV (80.0-98.0) fL MCH (27.0-32.0) pg MCHC (31.0-37.0) g/dL RDW Std Deviation (28.0-62.0) fl RDW Coeff of Lisa (11.0-15.0) % Plt Count (150-400) K/uL MPV (7.40-12.00) fL Add Manual Diff Neutrophils % (Manual) (48.0-80.0) % Band Neutrophils % % Lymphocytes % (Manual) (16.0-40.0) % Monocytes % (Manual) (0.0-15.0) % Eosinophils % (Manual) (0.0-7.0) % Nucleated RBC % /100WBC Absolute Seg Neuts (1.4-5.7) Band Neutrophils # Lymphocytes # (Manual) (0.6-2.4) Monocytes # (Manual) (0.0-0.8) Eosinophils # (Manual) (0.0-0.7) Nucleated RBCs # K/uL Sodium (136-145) mmol/L Potassium (3.5-5.1) mmol/L Chloride (98-107) mmol/L Carbon Dioxide (21.0-32.0) mmol/L BUN (7.0-18.0) mg/dL Creatinine (0.6-1.0) mg/dL Est Cr Clr Drug Dosing mL/min Estimated GFR (MDRD) ml/min Glucose (74-106) mg/dL Calcium (8.5-10.1) mg/dL Total Bilirubin (0.2-1.0) mg/dL AST (15-37) IU/L ALT (14-63) IU/L Alkaline Phosphatase (46-116) U/L Troponin I (0.000-0.056) ng/mL B-Natriuretic Peptide (<100) PG/ML Total Protein (6.4-8.2) g/dL Albumin (3.4-5.0) g/dL Globulin (2.6-4.0) g/dL Albumin/Globulin Ratio (0.9-1.6) Lipase (73-393) U/L Urine Color YELLOW Urine Appearance CLEAR Urine pH 6.0 (5.0-8.0) Ur Specific [place] 1.010 (1.001-1.035) Urine Protein NEGATIVE (NEGATIVE) mg/dL Urine Glucose (UA) NEGATIVE (NEGATIVE) mg/dL Urine Ketones NEGATIVE (NEGATIVE) mg/dL Urine Occult Blood NEGATIVE (NEGATIVE) Urine Nitrite NEGATIVE (NEGATIVE) Urine Bilirubin NEGATIVE (NEGATIVE) Urine Urobilinogen 0.2 (<2.0) EU/dL Ur Leukocyte Esterase NEGATIVE (NEGATIVE) Influenza Type A RNA NEGATIVE (NEGATIVE) Influenza Type B RNA NEGATIVE (NEGATIVE) SARS-CoV-2 RNA (CRUZ) NEGATIVE (NEGATIVE) Med Orders - Current: Current Medications Clonazepam (Clonazepam 0.5 Mg Tab) 0.125 mg PO BID@1500,2000 [facility] Last Admin: 02/04/21 14:41 Dose: 0.125 mg Documented by: Clonazepam (Clonazepam 0.5 Mg Tab) 0.25 mg PO DAILY@2300 [facility] Digoxin (Digoxin 125 Mcg Tab) 125 mcg PO QAM [facility] Last Admin: 02/04/21 08:25 Dose: 125 mcg Documented by: Furosemide (Furosemide 40 Mg/4 Ml Vial) 40 mg IV DAILY [facility] Last Admin: 02/04/21 16:33 Dose: 40 mg Documented by: Methotrexate (Methotrexate 2.5 Mg Tab) 10 mg PO MOFR@1800 [facility] Pantoprazole Sodium (Pantoprazole 40 Mg Tab.Cr) 40 mg PO BIDAC [facility] Sodium Chloride (Sodium Chloride 0.9% 10 Ml Syringe) 10 ml FLUSH ASDIRECTED PRN PRN Reason: Keep Vein Open Last Admin: 02/03/21 21:53 Dose: 10 ml Documented by: Sodium Chloride (Sodium Chloride 0.9% 2.5 Ml Syringe) 2.5 ml FLUSH ASDIRECTED PRN PRN Reason: Keep Vein Open Last Admin: 02/03/21 21:53 Dose: 2.5 ml Documented by: Verapamil HCl (Verapamil 40 Mg Tab) 120 mg PO TID [facility] Last Admin: 02/04/21 14:40 Dose: 120 mg Documented by: Discontinued Medications Albuterol/Ipratropium (Albuterol/Ipratropium 3.0-0.5 Mg/3 Ml Neb Soln) 3 ml NEB Q6HRRT [facility] Last Admin: 02/04/21 17:13 Dose: 3 ml Documented by: Furosemide (Furosemide 20 Mg/2 Ml Vial) 20 mg IVPUSH ONETIME ONE Stop: 02/03/21 22:51 Last Admin: 02/04/21 01:43 Dose: Not Given Documented by: Furosemide (Furosemide 20 Mg/2 Ml Vial) Confirm Administered Dose 20 mg .ROUTE .STK-MED ONE Stop: 02/04/21 01:37 Last Admin: 02/04/21 01:47 Dose: 20 mg Documented by: Methylprednisolone Sodium Succinate (Methylprednisolone Sodium Succinate 125 Mg/2 Ml Sdv) 125 mg IVPUSH ONETIME ONE Stop: 02/03/21 22:51 Last Admin: 02/03/21 23:19 Dose: 125 mg Documented by: Pantoprazole Sodium (Pantoprazole 40 Mg/10 Ml Syringe) 40 mg IVPUSH NOW ONE Stop: 02/03/21 22:52 Last Admin: 02/03/21 23:19 Dose: 40 mg Documented by: Pantoprazole Sodium (Pantoprazole 40 Mg Tab.Cr) 40 mg PO DAILY [facility] Last Admin: 02/04/21 08:25 Dose: 40 mg Documented by: - Exam Physical Findings Comments:: General: Thin middle aged female. In no acute distress. Pt has a nodding tremor in her neck CVS:S1S2 appreciated. RRR lungs: diminished bilaterally. No rales or wheezes pa: soft, non tender. bowel sounds present ext: no clubbing, cyanosis or edema neuro: strength is 5/5 bilaterally. Sensation is intact. Pt has a continuos head nodding tremor. psych: stable mood and affect. - Patient Data Lab Results Last 24 hrs: Laboratory Results - last 24 hr 02/03/21 02/03/21 02/03/21 Range/Units 21:44 21:44 21:44 WBC 4.66 (4.0-11.0) K/uL RBC 3.56 L (4.30-5.90) M/uL Hgb 11.2 L (12.0-16.0) g/dL Hct 33.4 L (36.0-46.0) % MCV 93.8 (80.0-98.0) fL MCH 31.5 (27.0-32.0) pg MCHC 33.5 (31.0-37.0) g/dL RDW Std Deviation 67.8 H (28.0-62.0) fl RDW Coeff of Lisa 20 H (11.0-15.0) % Plt Count 260 (150-400) K/uL MPV 9.30 (7.40-12.00) fL Add Manual Diff YES Neutrophils % (Manual) 86 H (48.0-80.0) % Band Neutrophils % 2 % Lymphocytes % (Manual) 6 L (16.0-40.0) % Monocytes % (Manual) 5 (0.0-15.0) % Eosinophils % (Manual) 1 (0.0-7.0) % Nucleated RBC % 0.0 /100WBC Absolute Seg Neuts 4.0 (1.4-5.7) Band Neutrophils # 0.1 Lymphocytes # (Manual) 0.3 L (0.6-2.4) Monocytes # (Manual) 0.2 (0.0-0.8) Eosinophils # (Manual) 0.0 (0.0-0.7) Nucleated RBCs # 0 K/uL Sodium 132 L (136-145) mmol/L Potassium 3.8 (3.5-5.1) mmol/L Chloride 96 L (98-107) mmol/L Carbon Dioxide 28.6 (21.0-32.0) mmol/L BUN 27 H (7.0-18.0) mg/dL Creatinine 1.0 (0.6-1.0) mg/dL Est Cr Clr Drug Dosing 45.38 mL/min Estimated GFR (MDRD) 55.6 ml/min Glucose 107 H (74-106) mg/dL Calcium 7.0 L (8.5-10.1) mg/dL Total Bilirubin 0.2 (0.2-1.0) mg/dL AST 47 H (15-37) IU/L ALT 30 (14-63) IU/L Alkaline Phosphatase 80 (46-116) U/L Troponin I < 0.050 (0.000-0.056) ng/mL B-Natriuretic Peptide 71 (<100) PG/ML Total Protein 3.7 L (6.4-8.2) g/dL Albumin 1.4 L (3.4-5.0) g/dL Globulin 2.3 L (2.6-4.0) g/dL Albumin/Globulin Ratio 0.6 L (0.9-1.6) Lipase 206 (73-393) U/L Urine Color Urine Appearance Urine pH (5.0-8.0) Ur Specific [place] (1.001-1.035) Urine Protein (NEGATIVE) mg/dL Urine Glucose (UA) (NEGATIVE) mg/dL Urine Ketones (NEGATIVE) mg/dL Urine Occult Blood (NEGATIVE) Urine Nitrite (NEGATIVE) Urine Bilirubin (NEGATIVE) Urine Urobilinogen (<2.0) EU/dL Ur Leukocyte Esterase (NEGATIVE) Influenza Type A RNA (NEGATIVE) Influenza Type B RNA (NEGATIVE) SARS-CoV-2 RNA (CRUZ) (NEGATIVE) 02/03/21 02/03/21 Range/Units 21:44 22:01 WBC (4.0-11.0) K/uL RBC (4.30-5.90) M/uL Hgb (12.0-16.0) g/dL Hct (36.0-46.0) % MCV (80.0-98.0) fL MCH (27.0-32.0) pg MCHC (31.0-37.0) g/dL RDW Std Deviation (28.0-62.0) fl RDW Coeff of Lisa (11.0-15.0) % Plt Count (150-400) K/uL MPV (7.40-12.00) fL Add Manual Diff Neutrophils % (Manual) (48.0-80.0) % Band Neutrophils % % Lymphocytes % (Manual) (16.0-40.0) % Monocytes % (Manual) (0.0-15.0) % Eosinophils % (Manual) (0.0-7.0) % Nucleated RBC % /100WBC Absolute Seg Neuts (1.4-5.7) Band Neutrophils # Lymphocytes # (Manual) (0.6-2.4) Monocytes # (Manual) (0.0-0.8) Eosinophils # (Manual) (0.0-0.7) Nucleated RBCs # K/uL Sodium (136-145) mmol/L Potassium (3.5-5.1) mmol/L Chloride (98-107) mmol/L Carbon Dioxide (21.0-32.0) mmol/L BUN (7.0-18.0) mg/dL Creatinine (0.6-1.0) mg/dL Est Cr Clr Drug Dosing mL/min Estimated GFR (MDRD) ml/min Glucose (74-106) mg/dL Calcium (8.5-10.1) mg/dL Total Bilirubin (0.2-1.0) mg/dL AST (15-37) IU/L ALT (14-63) IU/L Alkaline Phosphatase (46-116) U/L Troponin I (0.000-0.056) ng/mL B-Natriuretic Peptide (<100) PG/ML Total Protein (6.4-8.2) g/dL Albumin (3.4-5.0) g/dL Globulin (2.6-4.0) g/dL Albumin/Globulin Ratio (0.9-1.6) Lipase (73-393) U/L Urine Color YELLOW Urine Appearance CLEAR Urine pH 6.0 (5.0-8.0) Ur Specific [place] 1.010 (1.001-1.035) Urine Protein NEGATIVE (NEGATIVE) mg/dL Urine Glucose (UA) NEGATIVE (NEGATIVE) mg/dL Urine Ketones NEGATIVE (NEGATIVE) mg/dL Urine Occult Blood NEGATIVE (NEGATIVE) Urine Nitrite NEGATIVE (NEGATIVE) Urine Bilirubin NEGATIVE (NEGATIVE) Urine Urobilinogen 0.2 (<2.0) EU/dL Ur Leukocyte Esterase NEGATIVE (NEGATIVE) Influenza Type A RNA NEGATIVE (NEGATIVE) Influenza Type B RNA NEGATIVE (NEGATIVE) SARS-CoV-2 RNA (CRUZ) NEGATIVE (NEGATIVE) Result Diagrams: 02/03/21 21:44 02/03/21 21:44 Sepsis Event Note - Evaluation Sepsis Screening Result: No Definite Risk - Focused Exam Vital Signs: Vital Signs Temp Pulse Pulse Resp BP Pulse Ox 02/04/21 14:38 98.8 F 94 18 131/74 95 02/04/21 08:25 84 02/04/21 08:23 97.1 F 84 16 122/58 L 90 L - Problem List & Annotations (1) Rheumatoid arthritis SNOMED Code(s): 23209992 Code(s): M06.9 - RHEUMATOID ARTHRITIS, UNSPECIFIED Status: Acute Current Visit: Yes (2) COPD exacerbation SNOMED Code(s): 213211420 Code(s): J44.1 - CHRONIC OBSTRUCTIVE PULMONARY DISEASE W (ACUTE) EXACERBATION Status: Acute Priority: Medium Current Visit: Yes (3) Anticoagulant long-term use SNOMED Code(s): 499608103 Code(s): Z79.01 - GARAGE HELPER (CURRENT) USE OF ANTICOAGULANTS Status: Acute Current Visit: No (4) Atrial fibrillation with rapid ventricular response SNOMED Code(s): 571399301197219 Code(s): I48.91 - UNSPECIFIED ATRIAL FIBRILLATION Status: Acute Current Visit: No (5) GI bleeding SNOMED Code(s): 54547876 Code(s): K92.2 - GASTROINTESTINAL HEMORRHAGE, UNSPECIFIED Status: Acute Priority: High Current Visit: No - Problem List Review Problem List Initiated/Reviewed/Updated: Yes - My Orders Last 24 Hours: My Active Orders 02/04/21 10:48 Antiembolic Devices [RC] PER UNIT ROUTINE MATTHEW Hose [Antiembolic Hose] [OM.PC] Routine 02/04/21 15:45 Discontinue Telemetry Monitoring [Cardiac Monitoring Discontinue] [RC] Click to Edit 02/04/21 15:47 Cardiac Monitoring Discontinue [RC] Click to Edit 02/04/21 16:00 Furosemide [Lasix] 40 mg IV DAILY 02/04/21 17:31 Dietary Supplements [RC] TIDMEALS Echo 2D wo Cont [US] Routine 02/04/21 18:00 Albuterol/Ipratropium [DuoNeb 3.0-0.5 MG/3 ML] 3 ml NEB Q4HRRT 02/05/21 07:30 Pantoprazole [ProTONIX] 40 mg PO BIDAC - Plan Plan:: 65 yo female admitted for COPD exacerbation. I will increase duonebs to Q4 and Q2hrs prn along with solumedrol. Hematochezia Continue holding eliquis due to blood per rectum. Will increase PPI to BID Pedal edema likely due to a combination of hypoalbuminemia as well as CHF Will order protein shakes TID. Check a 2 DECHO to assess LVF Continue with lasix daily PAF In NSR. Continue holding DOAC Rheumatoid arthritis Pt has been on chronic steroid therapy with prednisone. She will have to follow up with her Park Maintenance Technician as an outp to find DMARDs alternatives to the steroid. Full code status
[2021-02-04] MEDS ORDERED: Methotrexate 2.5 MG Tab PO SCH (18:00)
[2021-02-05] MEDS: Albuterol/Ipratropium 3.0-0.5 MG/3 ML Neb Soln NEB SCH ×7 (02:16→21:58)
[2021-02-05] MEDS: Pantoprazole 40 MG Tab.CR PO SCH ×2 (06:34→17:33)
[2021-02-05] MEDS: Digoxin 125 MCG Tab PO SCH (10:04)
[2021-02-05] MEDS: Furosemide 40 MG/4 ML VIAL IV SCH (10:05)
--- NOTE | 2021-02-05 10:47 | PCM.PN ---
- General Info Date of Service: 02/05/21 Subjective Update: Overall she feels somewhat better today. Less dyspneic with activity. Maintaining sats > 90% on room air. - Patient Data Vitals - Most Recent: Last Vital Signs Temp 98.1 F 02/05/21 05:00 Pulse 82 02/05/21 10:04 Resp 20 02/05/21 05:00 BP 117/58 L 02/05/21 05:00 Pulse Ox 90 L 02/05/21 05:00 Weight - Most Recent: 121 lb 0.54 oz I&O - Last 24 Hours: Intake & Output 02/04/21 02/05/21 02/05/21 22:59 06:59 14:59 Intake Total 1100 700 Output Total 600 750 Balance 500 -50 Med Orders - Current: Current Medications Albuterol/Ipratropium (Albuterol/Ipratropium 3.0-0.5 Mg/3 Ml Neb Soln) 3 ml NEB Q4HRRT [facility] Last Admin: 02/05/21 05:48 Dose: 3 ml Documented by: Clonazepam (Clonazepam 0.5 Mg Tab) 0.125 mg PO BID@1500,2000 [facility] Last Admin: 02/04/21 20:35 Dose: 0.125 mg Documented by: Clonazepam (Clonazepam 0.5 Mg Tab) 0.25 mg PO DAILY@2300 [facility] Last Admin: 02/04/21 23:13 Dose: 0.25 mg Documented by: Digoxin (Digoxin 125 Mcg Tab) 125 mcg PO QAM [facility] Last Admin: 02/05/21 10:04 Dose: 125 mcg Documented by: Furosemide (Furosemide 40 Mg/4 Ml Vial) 40 mg IV DAILY [facility] Last Admin: 02/05/21 10:05 Dose: 40 mg Documented by: Methotrexate (Methotrexate 2.5 Mg Tab) 10 mg PO MOFR@1800 [facility] Last Admin: 02/04/21 17:36 Dose: 10 mg Documented by: Pantoprazole Sodium (Pantoprazole 40 Mg Tab.Cr) 40 mg PO BIDAC [facility] Last Admin: 02/05/21 06:34 Dose: 40 mg Documented by: Sodium Chloride (Sodium Chloride 0.9% 10 Ml Syringe) 10 ml FLUSH ASDIRECTED PRN PRN Reason: Keep Vein Open Last Admin: 02/03/21 21:53 Dose: 10 ml Documented by: Sodium Chloride (Sodium Chloride 0.9% 2.5 Ml Syringe) 2.5 ml FLUSH ASDIRECTED PRN PRN Reason: Keep Vein Open Last Admin: 02/03/21 21:53 Dose: 2.5 ml Documented by: Verapamil HCl (Verapamil 40 Mg Tab) 120 mg PO TID [facility] Last Admin: 02/05/21 05:48 Dose: 120 mg Documented by: Discontinued Medications Albuterol/Ipratropium (Albuterol/Ipratropium 3.0-0.5 Mg/3 Ml Neb Soln) 3 ml NEB Q6HRRT [facility] Last Admin: 02/04/21 17:13 Dose: 3 ml Documented by: Furosemide (Furosemide 20 Mg/2 Ml Vial) 20 mg IVPUSH ONETIME ONE Stop: 02/03/21 22:51 Last Admin: 02/04/21 01:43 Dose: Not Given Documented by: Furosemide (Furosemide 20 Mg/2 Ml Vial) Confirm Administered Dose 20 mg .ROUTE .STK-MED ONE Stop: 02/04/21 01:37 Last Admin: 02/04/21 01:47 Dose: 20 mg Documented by: Methylprednisolone Sodium Succinate (Methylprednisolone Sodium Succinate 125 Mg/2 Ml Sdv) 125 mg IVPUSH ONETIME ONE Stop: 02/03/21 22:51 Last Admin: 02/03/21 23:19 Dose: 125 mg Documented by: Pantoprazole Sodium (Pantoprazole 40 Mg/10 Ml Syringe) 40 mg IVPUSH NOW ONE Stop: 02/03/21 22:52 Last Admin: 02/03/21 23:19 Dose: 40 mg Documented by: Pantoprazole Sodium (Pantoprazole 40 Mg Tab.Cr) 40 mg PO DAILY [facility] Last Admin: 02/04/21 08:25 Dose: 40 mg Documented by: - Exam Physical Findings Comments:: General: Thin middle aged female. In no acute distress. She is less winded when she ambulates. CVS:S1S2 appreciated. RRR lungs: Still diminished bilaterally but better air entry than yesterday. No rale s or wheezes pa: soft, non tender. bowel sounds present ext: no clubbing or cyanosis. Some pedal edema 2+. Improved from yesterday. bilateral knee high matthew hoses. neuro: strength is 5/5 bilaterally. Sensation is intact. Pt has a continuos head nodding tremor. psych: stable mood and affect. - Patient Data Result Diagrams: 02/03/21 21:44 02/03/21 21:44 Sepsis Event Note - Evaluation Sepsis Screening Result: No Definite Risk - Focused Exam Vital Signs: Vital Signs Temp Pulse Pulse Resp BP Pulse Ox Pulse Ox 02/05/21 10:04 82 02/05/21 05:00 98.1 F 82 20 117/58 L 90 L 90 L 02/05/21 00:00 97.2 F 86 19 115/65 92 L - Problem List & Annotations (1) Rheumatoid arthritis SNOMED Code(s): 08255582 Code(s): M06.9 - RHEUMATOID ARTHRITIS, UNSPECIFIED Status: Acute Current Visit: Yes (2) COPD exacerbation SNOMED Code(s): 405023632 Code(s): J44.1 - CHRONIC OBSTRUCTIVE PULMONARY DISEASE W (ACUTE) EXACERBATION Status: Acute Priority: Medium Current Visit: Yes (3) Anticoagulant long-term use SNOMED Code(s): 153633594 Code(s): Z79.01 - CABLE WIRER (CURRENT) USE OF ANTICOAGULANTS Status: Acute Current Visit: No (4) Atrial fibrillation with rapid ventricular response SNOMED Code(s): 242182116731521 Code(s): I48.91 - UNSPECIFIED ATRIAL FIBRILLATION Status: Acute Current Visit: No (5) GI bleeding SNOMED Code(s): 39981327 Code(s): K92.2 - GASTROINTESTINAL HEMORRHAGE, UNSPECIFIED Status: Acute Priority: High Current Visit: No - Problem List Review Problem List Initiated/Reviewed/Updated: Yes - My Orders Last 24 Hours: My Active Orders 02/04/21 10:48 Antiembolic Devices [RC] PER UNIT ROUTINE [facility]W Hose [Antiembolic Hose] [OM.PC] Routine 02/04/21 15:45 Discontinue Telemetry Monitoring [Cardiac Monitoring Discontinue] [RC] Click to Edit 02/04/21 15:47 Cardiac Monitoring Discontinue [RC] Click to Edit 02/04/21 16:00 Furosemide [Lasix] 40 mg IV DAILY 02/04/21 17:31 Dietary Supplements [RC] TIDMEALS 02/04/21 18:00 Albuterol/Ipratropium [DuoNeb 3.0-0.5 MG/3 ML] 3 ml NEB Q4HRRT 02/05/21 07:30 Pantoprazole [ProTONIX] 40 mg PO BIDAC 02/05/21 10:37 Dietary Supplements [RC] TIDAC 02/05/21 17:31 Echo Comp wo Cont [US] Routine - Plan Plan:: 65 yo female admitted for COPD exacerbation. Continue with duonebs Q4 and Q2hrs prn along with solumedrol. Will start tapering steroid dose. Hematochezia Continue holding eliquis due to blood per rectum. Will increase PPI to BID Severe protein calorie malnutrition Will order protein shakes TID. Pedal edema likely due to a combination of hypoalbuminemia as well as CHF Follow up with 2 DECHO results today. Continue with IV lasix for today. PAF In NSR. Continue holding DOAC Rheumatoid arthritis Pt has been on chronic steroid therapy with prednisone. She will have to follow up with her Lap Runner as an outp to find DMARDs alternatives to the steroid. Full code status
[2021-02-05 12:01] LABS: CARBON DIOXIDE,CO2 27.5 mmol/L (21.0-32.0); POTASSIUM,K 3.1 mmol/L (3.5-5.1)
[2021-02-05] MEDS: methylPREDNISolone Sodium Succinate 40 MG/1 ML SDV IVPUSH SCH ×2 (12:48→19:06)
[2021-02-05] MEDS: Potassium Chloride 20 MEQ Tab.ER PO SCH (12:49)
[2021-02-05] MEDS: Folic Acid 1 MG Tab PO SCH (12:49)
[2021-02-05] MEDS: ClonazePAM 0.5 MG Tab PO SCH ×3 (15:51→23:08)
[2021-02-05] MEDS ORDERED: Pantoprazole 40 MG Tab.CR PO SCH (17:00)
[2021-02-05] MEDS ORDERED: Potassium Chloride 20 MEQ Tab.ER PO SCH (17:30)
[2021-02-06] MEDS: Albuterol/Ipratropium 3.0-0.5 MG/3 ML Neb Soln NEB SCH ×3 (01:52→09:22)
[2021-02-06] MEDS: methylPREDNISolone Sodium Succinate 40 MG/1 ML SDV IVPUSH SCH ×2 (03:30→11:30)
[2021-02-06] MEDS: Pantoprazole 40 MG Tab.CR PO SCH (06:35)
[2021-02-06 08:33] VITALS: BP 118/58; PULSE 86
[2021-02-06] MEDS: Furosemide 40 MG/4 ML VIAL IV SCH (09:21)
[2021-02-06] MEDS: Folic Acid 1 MG Tab PO SCH (09:21)
[2021-02-06] MEDS: Digoxin 125 MCG Tab PO SCH (09:21)
[2021-02-06] MEDS: Potassium Chloride 20 MEQ Tab.ER PO SCH (09:21)
[2021-02-06] MEDS: Sodium Chloride 0.9% 10 ML Syringe FLUSH PRN (09:22)
--- NOTE | 2021-02-06 10:42 | PCM.DCSUM1 ---
Discharge Summary - Hospital Course Free Text/Narrative:: Glory Rouse is a 65 y/o female with a past medical h/o of Rheumatoid arthritis, COPD, spastic torticollis, atrial fibrillation on Eliquis, h/o GI bleed who presents to the ED with complaints of shortness of breath for the past week. She was treated for a COPD exacerbation using parenteral steroids and nebulizers. She was also noted to have pedal edema. She has a very low serum albumin level. She was advised to take protein shakes TID to help improve her nutritional status. She was advised to hold her DOAC due to hematochezia. She will need to see her GI specialist in [place] to clear her for anticoagulants. She was noted to get WATTERS and therefore prescribed home oxygen with activity. Discharge instructions Activity: as tolerated Diet : regular. Plus ensure TID with meals Follow up with Dr. Ricks to coordinate cardiology and GI referrals for a stress test and endoscopy. Physical Exam: General: Thin female. In no distress CVS: S1S2 appreciated. RRR lungs: clear bilaterally. No rales or wheezes pa: soft, non tender. bowel sounds present ext: no clubbing, cyanosis or edema neuro: pt has a constant spastic torticollis tremor in the head. Gait is stable. Diagnosis: Stroke: No - Discharge Data Discharge Date: 02/06/21 Discharge Disposition: Home, Self-Care 01 Condition: Stable - Referral to Home Health Primary Care Physician: PCP None - Discharge Diagnosis/Problem(s) (1) Rheumatoid arthritis SNOMED Code(s): 10529907 ICD Code: M06.9 - RHEUMATOID ARTHRITIS, UNSPECIFIED Status: Acute Current Visit: Yes (2) COPD exacerbation SNOMED Code(s): 747369229 ICD Code: J44.1 - CHRONIC OBSTRUCTIVE PULMONARY DISEASE W (ACUTE) EXACERBATION Status: Acute Priority: Medium Current Visit: Yes (3) Anticoagulant long-term use SNOMED Code(s): 197767088 ICD Code: Z79.01 - MCFP (CURRENT) USE OF ANTICOAGULANTS Status: Acute Current Visit: No (4) Atrial fibrillation with rapid ventricular response SNOMED Code(s): 139651093466008 ICD Code: I48.91 - UNSPECIFIED ATRIAL FIBRILLATION Status: Acute Current Visit: No (5) GI bleeding SNOMED Code(s): 21343478 ICD Code: K92.2 - GASTROINTESTINAL HEMORRHAGE, UNSPECIFIED Status: Acute Priority: High Current Visit: No - Patient Summary/Data Consults: Consultations 02/04/21 00:11 Consult to Shield Operator [CONS] Routine - Discharge Plan Home Medications: Home Meds Tiotropium Br/Olodaterol HCl [Stiolto Respimat Inhal Harriet] 2 puff INH QAM 03/31/18 [History] Apixaban [Eliquis] 5 mg PO BID 10/26/18 [History] Digoxin 125 mcg PO QAM 10/26/18 [History] Folic Acid 1 mg PO DAILY 10/26/18 [History] Methotrexate 10 mg PO MOFR@1800 10/26/18 [History] Potassium Chloride [Klor-Con] 20 meq PO DAILY 10/26/18 [History] Verapamil HCl [Verapamil] 120 mg PO TID 10/26/18 [History] predniSONE [Prednisone] 5 mg PO BID 10/26/18 [History] ClonazePAM [KlonoPIN] 0.5 mg PO TID PRN 12/06/20 [History] Furosemide 60 mg PO DAILY 12/06/20 [History] Mupirocin Oint [Bactroban Oint] 22 gm TP BID 12/06/20 [History] Pantoprazole [ProTONIX] 40 mg PO BIDAC 02/04/21 [History] Patient Handouts: Chronic Obstructive Pulmonary Disease Exacerbation, Apzm-[id number], Rheumatoid Arthritis, Radg-rq-Owol, Gastrointestinal Bleeding, Cnlw-ql-Prvv, Edema, Ivdx-oy-Xypc, COPD and Physical Activity Referrals: Ari Epstein MD [Ordering Only Provider] - 02/12/21 3:00 pm - Discharge Summary/Plan Comment DC Time >30 min.: Yes Total # of Minutes for Discharge Time: 40 mins - Patient Data Vitals - Most Recent: Last Vital Signs Temp 97.7 F 02/06/21 08:00 Pulse 86 02/06/21 09:21 Resp 16 02/06/21 08:00 BP 118/58 L 02/06/21 08:00 Pulse Ox 88 L 02/06/21 08:00 Weight - Most Recent: 121 lb 0.54 oz I&O - Last 24 hours: Intake & Output 02/05/21 02/06/21 02/06/21 22:59 06:59 14:59 Intake Total 1280 650 Output Total 1450 700 Balance -170 -50 Lab Results - Last 24 hrs: Laboratory Results - last 24 hr 02/05/21 Range/Units 11:27 Sodium 136 (136-145) mmol/L Potassium 3.1 L (3.5-5.1) mmol/L Chloride 99 (98-107) mmol/L Carbon Dioxide 27.5 (21.0-32.0) mmol/L BUN 33 H (7.0-18.0) mg/dL Creatinine 1.4 H (0.6-1.0) mg/dL Est Cr Clr Drug Dosing 33.14 mL/min Estimated GFR (MDRD) 37.7 ml/min Glucose 85 (74-106) mg/dL Calcium 6.7 L (8.5-10.1) mg/dL Med Orders - Current: Current Medications Albuterol/Ipratropium (Albuterol/Ipratropium 3.0-0.5 Mg/3 Ml Neb Soln) 3 ml NEB Q4HRRT [facility] Last Admin: 02/06/21 09:22 Dose: 3 ml Documented by: Clonazepam (Clonazepam 0.5 Mg Tab) 0.125 mg PO BID@1500,2000 [facility] Last Admin: 02/05/21 20:25 Dose: 0.125 mg Documented by: Clonazepam (Clonazepam 0.5 Mg Tab) 0.25 mg PO DAILY@2300 [facility] Last Admin: 02/05/21 23:08 Dose: 0.25 mg Documented by: Digoxin (Digoxin 125 Mcg Tab) 125 mcg PO QAM [facility] Last Admin: 02/06/21 09:21 Dose: 125 mcg Documented by: Folic Acid (Folic Acid 1 Mg Tab) 1 mg PO DAILY [facility] Last Admin: 02/06/21 09:21 Dose: 1 mg Documented by: Furosemide (Furosemide 40 Mg/4 Ml Vial) 40 mg IV DAILY [facility] Last Admin: 02/06/21 09:21 Dose: 40 mg Documented by: Methotrexate (Methotrexate 2.5 Mg Tab) 10 mg PO MOFR@1800 [facility] Last Admin: 02/04/21 17:36 Dose: 10 mg Documented by: Methylprednisolone Sodium Succinate (Methylprednisolone Sodium Succinate 40 Mg/1 Ml Sdv) 60 mg IVPUSH Q8H [facility] Last Admin: 02/06/21 03:30 Dose: 60 mg Documented by: Pantoprazole Sodium (Pantoprazole 40 Mg Tab.Cr) 40 mg PO BIDAC [facility] Last Admin: 02/06/21 06:35 Dose: 40 mg Documented by: Potassium Chloride (Potassium Chloride 20 Meq Tab.Er) 20 meq PO DAILY [facility] Last Admin: 02/06/21 09:21 Dose: 20 meq Documented by: Potassium Chloride (Potassium Chloride 20 Meq Tab.Er) 40 meq PO ONETIME [facility] Sodium Chloride (Sodium Chloride 0.9% 10 Ml Syringe) 10 ml FLUSH ASDIRECTED PRN PRN Reason: Keep Vein Open Last Admin: 02/06/21 09:22 Dose: 10 ml Documented by: Sodium Chloride (Sodium Chloride 0.9% 2.5 Ml Syringe) 2.5 ml FLUSH ASDIRECTED PRN PRN Reason: Keep Vein Open Last Admin: 02/03/21 21:53 Dose: 2.5 ml Documented by: Verapamil HCl (Verapamil 40 Mg Tab) 120 mg PO TID [facility] Last Admin: 02/06/21 05:49 Dose: 120 mg Documented by: Discontinued Medications Albuterol/Ipratropium (Albuterol/Ipratropium 3.0-0.5 Mg/3 Ml Neb Soln) 3 ml NEB Q6HRRT [facility] Last Admin: 02/04/21 17:13 Dose: 3 ml Documented by: Furosemide (Furosemide 20 Mg/2 Ml Vial) 20 mg IVPUSH ONETIME ONE Stop: 02/03/21 22:51 Last Admin: 02/04/21 01:43 Dose: Not Given Documented by: Furosemide (Furosemide 20 Mg/2 Ml Vial) Confirm Administered Dose 20 mg .ROUTE .STK-MED ONE Stop: 02/04/21 01:37 Last Admin: 02/04/21 01:47 Dose: 20 mg Documented by: Methylprednisolone Sodium Succinate (Methylprednisolone Sodium Succinate 125 Mg/2 Ml Sdv) 125 mg IVPUSH ONETIME ONE Stop: 02/03/21 22:51 Last Admin: 02/03/21 23:19 Dose: 125 mg Documented by: Pantoprazole Sodium (Pantoprazole 40 Mg/10 Ml Syringe) 40 mg IVPUSH NOW ONE Stop: 02/03/21 22:52 Last Admin: 02/03/21 23:19 Dose: 40 mg Documented by: Pantoprazole Sodium (Pantoprazole 40 Mg Tab.Cr) 40 mg PO DAILY [facility] Last Admin: 02/04/21 08:25 Dose: 40 mg Documented by:
--- NOTE | 2021-02-07 15:48 | ECHO ---
EXAM DATE: 02/03/21 PATIENT'S AGE: 65 The ECHO report has been scanned into [employer] and can be seen in this patient's EMR (Electronic Medical Record) under the REPORTS section. The report has also been scanned into PACS. [facility]
== END 2021-02-06 12:30 | disposition home or self-care (01) ==
LOC: MW.ED 21:28 → MW.MS 22:49
PROVIDERS: ADMIT Internal Medicine; ATTEND Internal Medicine
DX: J44.1 Chronic obstructive pulmonary disease with (acute) exacerbation (principal); M06.9 Rheumatoid arthritis, unspecified; M43.6 Torticollis; I48.91 Unspecified atrial fibrillation; R60.9 Edema, unspecified; Z79.01 Long term (current) use of anticoagulants; Z79.899 Other long term (current) drug therapy; Z88.8 Allergy status to other drugs, medicaments and biological substances; Z88.2 Allergy status to sulfonamides; Z20.822 Contact with and (suspected) exposure to COVID-19
CPT/HCPCS: 0240U; 36415; 71045; 80048; 80053; 81003; 83690; 83880; 84484; 85025; 93005; 93306; 94640; 96374; 96375; 96376; 99285; A9270; C9113; G0378; J1940; J2920; J2930; J8610; J7620-GY

== ENCOUNTER 2021-02-19 13:09 | Inpatient (IN) | payer BC, MEDICARE ==
[2021-02-19] MEDS ORDERED: Albuterol/Ipratropium 3.0-0.5 MG/3 ML Neb Soln NEB ONE (13:14)
[2021-02-19] MEDS ORDERED: Albuterol/Ipratropium 3.0-0.5 MG/3 ML Neb Soln ONE (13:35)
[2021-02-19 13:51] LABS: POTASSIUM,K 3.6 mmol/L (3.5-5.1)
[2021-02-19 14:11] LABS: CORONAVIRUS COVID-19 NAA NEGATIVE (NEGATIVE); INFLUENZA A NAA NEGATIVE (NEGATIVE); INFLUENZA B NAA NEGATIVE (NEGATIVE)
[2021-02-19] MEDS: 50% Dextrose in Water 50 ML Syringe IV PRN (15:03)
[2021-02-19] MEDS ORDERED: methylPREDNISolone Sodium Succinate 40 MG/1 ML SDV IVPUSH ONE (16:59)
[2021-02-19] MEDS: methylPREDNISolone Sodium Succinate 40 MG/1 ML SDV IVPUSH SCH (18:11)
[2021-02-19] MEDS: Levofloxacin/Dextrose 5%-Water 750 MG in Premix Bag 1 BAG IV SCH (18:14)
[2021-02-19] MEDS: Albuterol/Ipratropium 3.0-0.5 MG/3 ML Neb Soln NEB SCH ×2 (18:14→21:46)
[2021-02-19] MEDS ORDERED: LORazepam 2 MG/ML SDV IVPUSH ONE (18:29)
[2021-02-20] MEDS: methylPREDNISolone Sodium Succinate 40 MG/1 ML SDV IVPUSH SCH ×3 (01:20→16:43)
[2021-02-20] MEDS: Albuterol/Ipratropium 3.0-0.5 MG/3 ML Neb Soln NEB SCH ×6 (02:55→22:45)
[2021-02-20] MEDS: Pantoprazole 40 MG Tab.CR PO SCH ×2 (06:44→16:43)
[2021-02-20 07:24] LABS: CARBON DIOXIDE,CO2 26.3 mmol/L (21.0-32.0); POTASSIUM,K 3.6 mmol/L (3.5-5.1)
[2021-02-20] MEDS: [UNRECOGNIZED DRUG - OTHER] INH SCH (08:19)
[2021-02-20] MEDS: OLODATEROL HCL INH SCH (08:19)
[2021-02-20] MEDS: Digoxin 125 MCG Tab PO SCH (08:49)
[2021-02-20] MEDS: ClonazePAM 0.5 MG Tab PO PRN ×2 (14:27→22:45)
[2021-02-21] MEDS: methylPREDNISolone Sodium Succinate 40 MG/1 ML SDV IVPUSH SCH ×3 (01:56→16:33)
[2021-02-21] MEDS: Albuterol/Ipratropium 3.0-0.5 MG/3 ML Neb Soln NEB SCH ×6 (01:56→22:20)
[2021-02-21] MEDS: Pantoprazole 40 MG Tab.CR PO SCH ×2 (06:38→16:26)
[2021-02-21 07:10] LABS: CARBON DIOXIDE,CO2 26.7 mmol/L (21.0-32.0); POTASSIUM,K 3.7 mmol/L (3.5-5.1)
[2021-02-21] MEDS: OLODATEROL HCL INH SCH (08:09)
[2021-02-21] MEDS: [UNRECOGNIZED DRUG - OTHER] INH SCH (08:09)
[2021-02-21] MEDS: Digoxin 125 MCG Tab PO SCH (08:34)
[2021-02-21] MEDS: ClonazePAM 0.5 MG Tab PO PRN ×2 (10:28→18:07)
[2021-02-21 11:36] LABS: CORONAVIRUS COVID-19 NAA NEGATIVE (NEGATIVE); INFLUENZA A NAA NEGATIVE (NEGATIVE); INFLUENZA B NAA NEGATIVE (NEGATIVE); RESPIRATORY SYNCYTIAL VIR NAA NEGATIVE (NEGATIVE)
[2021-02-21] MEDS ORDERED: Furosemide 40 MG/4 ML VIAL IVPUSH ONE ×2 (12:00→18:34)
[2021-02-21] MEDS: Apixaban 5 MG Tab PO SCH (13:56)
[2021-02-21] MEDS: cefTRIAXone 1 GM in Sodium Chloride 0.9% 50 ML IV SCH (14:12)
[2021-02-21] MEDS ORDERED: LORazepam 2 MG/ML SDV IVPUSH ONE (14:36)
[2021-02-21] MEDS: Levofloxacin/Dextrose 5%-Water 750 MG in Premix Bag 1 BAG IV SCH (16:49)
[2021-02-21] MEDS ORDERED: LORazepam 2 MG/ML SDV IVPUSH PRN (18:34)
[2021-02-21] MEDS: Pantoprazole 40 MG/10 ML Syringe IVPUSH SCH (18:50)
[2021-02-21] MEDS: LORazepam 2 MG/ML SDV IVPUSH PRN (22:26)
[2021-02-22] MEDS: Albuterol/Ipratropium 3.0-0.5 MG/3 ML Neb Soln NEB SCH ×6 (02:06→22:07)
[2021-02-22] MEDS: methylPREDNISolone Sodium Succinate 40 MG/1 ML SDV IVPUSH SCH ×3 (02:07→16:33)
[2021-02-22] MEDS: LORazepam 2 MG/ML SDV IVPUSH PRN ×4 (02:11→18:14)
[2021-02-22] MEDS: Sodium Chloride 0.65% Nasal Spray 45 ML Bottle NAS PRN ×3 (04:15→16:33)
[2021-02-22] MEDS: guaiFENesin/Dextromethorphan 100-10 MG/5 ML Soln 10 ML Cup PO PRN ×3 (04:15→16:35)
[2021-02-22] MEDS: ClonazePAM 0.5 MG Tab PO PRN ×3 (04:52→23:16)
[2021-02-22 07:09] LABS: POTASSIUM,K 3.5 mmol/L (3.5-5.1)
[2021-02-22] MEDS: Pantoprazole 40 MG/10 ML Syringe IVPUSH SCH (08:01)
[2021-02-22] MEDS: Apixaban 5 MG Tab PO SCH ×3 (08:01→22:47)
[2021-02-22] MEDS: Digoxin 125 MCG Tab PO SCH (08:01)
[2021-02-22] MEDS: OLODATEROL HCL INH SCH (09:09)
[2021-02-22] MEDS: [UNRECOGNIZED DRUG - OTHER] INH SCH (09:09)
[2021-02-22] MEDS ORDERED: Furosemide 40 MG/4 ML VIAL IVPUSH ONE (11:18)
[2021-02-22] MEDS: cefTRIAXone 1 GM in Sodium Chloride 0.9% 50 ML IV SCH (15:57)
[2021-02-22] MEDS ORDERED: Albuterol/Ipratropium 3.0-0.5 MG/3 ML Neb Soln NEB ONE (18:13)
[2021-02-23] MEDS: LORazepam 2 MG/ML SDV IVPUSH PRN ×4 (00:32→23:40)
[2021-02-23] MEDS: methylPREDNISolone Sodium Succinate 40 MG/1 ML SDV IVPUSH SCH ×3 (00:32→17:08)
[2021-02-23] MEDS ORDERED: Acetaminophen 325 MG Tab PO PRN (00:53)
[2021-02-23] MEDS: Albuterol/Ipratropium 3.0-0.5 MG/3 ML Neb Soln NEB SCH ×6 (01:25→21:11)
[2021-02-23] MEDS: guaiFENesin/Dextromethorphan 100-10 MG/5 ML Soln 10 ML Cup PO PRN ×2 (01:25→13:18)
[2021-02-23] MEDS: ClonazePAM 0.5 MG Tab PO PRN ×2 (07:50→20:12)
[2021-02-23] MEDS: Pantoprazole 40 MG/10 ML Syringe IVPUSH SCH (08:03)
[2021-02-23] MEDS: Digoxin 125 MCG Tab PO SCH (08:03)
[2021-02-23] MEDS: Apixaban 5 MG Tab PO SCH ×2 (08:03→20:12)
[2021-02-23] MEDS: OLODATEROL HCL INH SCH (08:30)
[2021-02-23] MEDS: [UNRECOGNIZED DRUG - OTHER] INH SCH (08:30)
[2021-02-23] MEDS ORDERED: Furosemide 40 MG/4 ML VIAL IVPUSH ONE (12:20)
[2021-02-23] MEDS: cefTRIAXone 1 GM in Sodium Chloride 0.9% 50 ML IV SCH ×2 (14:31→19:11)
[2021-02-23] MEDS: Levofloxacin/Dextrose 5%-Water 750 MG in Premix Bag 1 BAG IV SCH (17:08)
[2021-02-23] MEDS: Morphine 2 MG/ML SYRINGE IVPUSH PRN (21:15)
[2021-02-24] MEDS: Albuterol/Ipratropium 3.0-0.5 MG/3 ML Neb Soln NEB SCH ×6 (02:02→22:16)
[2021-02-24] MEDS: LORazepam 2 MG/ML SDV IVPUSH PRN ×3 (05:49→22:35)
[2021-02-24] MEDS: methylPREDNISolone Sodium Succinate 40 MG/1 ML SDV IVPUSH SCH (05:52)
[2021-02-24 06:39] LABS: BLOOD UREA NITROGEN,BUN 24 mg/dL (7.0-18.0); CARBON DIOXIDE,CO2 34.4 mmol/L (21.0-32.0); CHLORIDE,CL 99 mmol/L (98-107); GLUCOSE RANDOM 66 mg/dL (74-106); POTASSIUM,K 3.5 mmol/L (3.5-5.1); SODIUM,NA 135 mmol/L (136-145)
[2021-02-24] MEDS: Morphine 2 MG/ML SYRINGE IVPUSH PRN ×2 (06:45→23:30)
[2021-02-24] MEDS: Apixaban 5 MG Tab PO SCH ×2 (08:52→22:16)
[2021-02-24] MEDS: Pantoprazole 40 MG/10 ML Syringe IVPUSH SCH (08:52)
[2021-02-24] MEDS: Digoxin 125 MCG Tab PO SCH (08:52)
[2021-02-24] MEDS: OLODATEROL HCL INH SCH (09:06)
[2021-02-24] MEDS: [UNRECOGNIZED DRUG - OTHER] INH SCH (09:06)
[2021-02-24] MEDS: ClonazePAM 0.5 MG Tab PO PRN ×3 (10:19→23:25)
[2021-02-24] MEDS ORDERED: Furosemide 40 MG/4 ML VIAL IVPUSH ONE (10:42)
[2021-02-24] MEDS ORDERED: Magnesium Sulfate/Water 2 GM/50 ML Premix Bag IV ONE (14:12)
[2021-02-24] MEDS ORDERED: Magnesium Sulfate/Water 50 ML IV ONE (14:45)
[2021-02-24] MEDS: cefTRIAXone 1 GM in Sodium Chloride 0.9% 50 ML IV SCH (16:37)
[2021-02-24] MEDS: guaiFENesin/Dextromethorphan 100-10 MG/5 ML Soln 10 ML Cup PO PRN (20:02)
[2021-02-24] MEDS: Calcium Carbonate 500 MG Tab.Chew PO SCH (22:16)
[2021-02-25] MEDS: Albuterol/Ipratropium 3.0-0.5 MG/3 ML Neb Soln NEB SCH ×5 (01:15→17:05)
[2021-02-25] MEDS ORDERED: Digoxin 500 MCG/2 ML Amp IVPUSH ONE (01:34)
[2021-02-25] MEDS: Calcium Carbonate 500 MG Tab.Chew PO SCH ×2 (05:53→14:00)
[2021-02-25 07:18] LABS: BLOOD UREA NITROGEN,BUN 24 mg/dL (7.0-18.0); CARBON DIOXIDE,CO2 30.2 mmol/L (21.0-32.0); CHLORIDE,CL 97 mmol/L (98-107); GLUCOSE RANDOM 47 mg/dL (74-106); POTASSIUM,K 3.8 mmol/L (3.5-5.1); SODIUM,NA 132 mmol/L (136-145)
[2021-02-25] MEDS: [UNRECOGNIZED DRUG - OTHER] INH SCH (08:08)
[2021-02-25] MEDS: OLODATEROL HCL INH SCH (08:08)
[2021-02-25] MEDS: Pantoprazole 40 MG/10 ML Syringe IVPUSH SCH (08:08)
[2021-02-25] MEDS: Morphine 2 MG/ML SYRINGE IVPUSH PRN ×6 (09:00→21:19)
[2021-02-25] MEDS ORDERED: methylPREDNISolone Sodium Succinate 40 MG/1 ML SDV IVPUSH SCH (09:00)
[2021-02-25] MEDS: Digoxin 125 MCG Tab PO SCH (09:20)
[2021-02-25] MEDS: Apixaban 5 MG Tab PO SCH (09:20)
[2021-02-25] MEDS: LORazepam 2 MG/ML SDV IVPUSH PRN ×6 (09:28→22:14)
[2021-02-25] MEDS: 50% Dextrose in Water 50 ML Syringe IV PRN (10:00)
[2021-02-25] MEDS ORDERED: Magnesium Sulfate/Water 2 GM in Premix Bag 1 BAG IV ONE ×2 (10:30→11:00)
[2021-02-25] MEDS: cefTRIAXone 1 GM in Sodium Chloride 0.9% 50 ML IV SCH (14:34)
[2021-02-25] MEDS: Levofloxacin/Dextrose 5%-Water 750 MG in Premix Bag 1 BAG IV SCH (17:06)
[2021-02-25] MEDS ORDERED: LORazepam 2 MG/ML SDV IVPUSH PRN (17:12)
[2021-02-25] MEDS ORDERED: Morphine 2 MG/ML SYRINGE IVPUSH PRN (17:13)
[2021-02-26] MEDS: Morphine 2 MG/ML SYRINGE IVPUSH PRN ×4 (01:14→09:05)
[2021-02-26] MEDS: LORazepam 2 MG/ML SDV IVPUSH PRN ×4 (01:44→09:04)
[2021-02-26] MEDS ORDERED: LORazepam 2 MG/ML SDV IVPUSH PRN (09:57)
[2021-02-26] MEDS ORDERED: Morphine 2 MG/ML SYRINGE IVPUSH PRN (09:57)
[2021-02-26] MEDS: Morphine 10 MG/0.5 ML Oral Syringe PO PRN ×6 (10:52→15:09)
[2021-02-26] MEDS: LORazepam Conc Solution 2 MG/ML 30 ML Bottle PO PRN ×5 (10:53→14:40)
[2021-02-26] MEDS ORDERED: Scopolamine 1.5 MG Transdermal Patch TRDERM PRN (14:00)
[2021-02-26 14:49] VITALS: BP 116/59; PULSE 118
[2021-02-26] MEDS ORDERED: LORazepam Conc Solution 2 MG/ML 30 ML Bottle PO PRN (14:52)
== END 2021-02-26 15:25 | disposition expired | DRG 139 ==
LOC: MW.ED 13:09 → MW.ICU 17:01 → MW.MS 02-25 19:58
PROVIDERS: ADMIT Internal Medicine; ATTEND Internal Medicine
PROC: 5A0935A Assistance with Respiratory Ventilation, Less than 24 Consecutive Hours, High Flow/Velocity Cannula (ICD-10-PCS; 2021-02-19)
PROC: 5A09357 Assistance with Respiratory Ventilation, Less than 24 Consecutive Hours, Continuous Positive Airway Pressure (ICD-10-PCS; principal; 2021-02-20)
DX: J12.9 Viral pneumonia, unspecified (principal); J96.01 Acute respiratory failure with hypoxia; I50.31 Acute diastolic (congestive) heart failure; J44.1 Chronic obstructive pulmonary disease with (acute) exacerbation; I11.0 Hypertensive heart disease with heart failure; J44.0 Chronic obstructive pulmonary disease with (acute) lower respiratory infection; N17.9 Acute kidney failure, unspecified; D84.9 Immunodeficiency, unspecified; E87.1 Hypo-osmolality and hyponatremia; I48.20 Chronic atrial fibrillation, unspecified; I24.8 Other forms of acute ischemic heart disease; M06.9 Rheumatoid arthritis, unspecified; Z51.5 Encounter for palliative care; H54.7 Unspecified visual loss; Z20.822 Contact with and (suspected) exposure to COVID-19; Z66 Do not resuscitate; F41.9 Anxiety disorder, unspecified; K21.9 Gastro-esophageal reflux disease without esophagitis; K63.5 Polyp of colon; M54.2 Cervicalgia; G89.29 Other chronic pain; E88.09 Other disorders of plasma-protein metabolism, not elsewhere classified; M43.6 Torticollis; E83.42 Hypomagnesemia; Z87.19 Personal history of other diseases of the digestive system; Z79.52 Long term (current) use of systemic steroids; Z79.899 Other long term (current) drug therapy; Z98.49 Cataract extraction status, unspecified eye; Z86.14 Personal history of Methicillin resistant Staphylococcus aureus infection; Z87.891 Personal history of nicotine dependence; Z79.01 Long term (current) use of anticoagulants; Z88.2 Allergy status to sulfonamides; Z98.890 Other specified postprocedural states
CPT/HCPCS: 0240U; 0241U; 36415; 36600; 51701; 51702; 71045; 71045-26; 71250; 71250-26; 80048; 80053; 80202; 81001; 82272; 82803; 82947; 83735; 83880; 84100; 84145; 84484; 85025; 85610; 92610-GN; 93005; 94640; 94660; 96374; 96375; 99223; 99233; 99238; 99285-25; 99291; A9270-GY; C9113; J0696; J1160; J1940; J1956; J2060; J2270; J2920; J3370; J3475; J7050; J7620-GY